=== PATIENT | male | born 1975 | race Caucasian/White ===

== ENCOUNTER 2018-04-15 13:05 | Emergency (ER) | payer OTHER ==
--- OUTSIDE RECORDS SUMMARY | 2018-04-15 13:39 | XMS REPORT | Clinical Summary ---
:1975 Author Organization [facility] Address [address] [place] [address] Care Team Providers Name Role Phone Asked, None Given Primary Care Provider Unavailable Allergies No Known Allergies Medications Medication Sig Dispensed Refills Start Date End Date Status aspirin (ECOTRIN) 81 MG Take 81 mg by 0 Active enteric coated tablet mouth daily. docusate sodium Take 100 mg by 0 Active (COLACE) 100 MG capsule mouth 2 (two) times a day. lisinopril Take 20 mg by 0 Active (PRINIVIL,ZESTRIL) 20 mouth daily. MG tablet Active Problems Not on file Social History Tobacco Use Types Packs/Day Years Used Date Never Smoker Smokeless Tobacco: Never Used Tobacco Cessation: Counseling Given: No Alcohol Use Drinks/Week oz/Week Comments No Sex Assigned at Date Recorded Not on file Job Start Date Occupation Industry Not on file Not on file Not on file Travel History Travel Start Travel End No recent travel history available. Last Filed Vital Signs Not on file Plan of Treatment Not on file Results Not on fileafter 04/14/2017 Insurance Payer Benefit Plan / Group Subscriber ID Type Phone Address MEDICARE MEDICARE PART A AND B xxxxxxxxxx Medicare [place], [place] Advance Directives Patient has advance care planning documents, and code status on file. For more information, please contact:[address] [address] Code Status Date Activated Date Inactivated Comments Full Code 09/05/2015 4:35 PM 09/05/2015 7:28 PM Code Status decision reached by: Patient
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
[2018-04-15 16:26] VITALS: TEMP 98.4
[2018-04-15 16:30] VITALS: BP 159/94; O2SAT 99
== END 2018-04-15 16:09 | disposition home or self-care (01) ==
LOC: ER 13:05
DX: I83.893 Varicose veins of bilateral lower extremities with other complications (principal)
CPT/HCPCS: 99283

== ENCOUNTER 2018-08-25 18:06 | Emergency (ER) | payer OTHER ==
--- OUTSIDE RECORDS SUMMARY | 2018-08-25 18:08 | XMS REPORT | Clinical Summary ---
:1975 Author Organization [facility] Address [address] [place] [address] Care Team Providers Name Role Phone Asked, [...] Not on file Results Not on fileafter 08/24/2017 Insurance Payer Benefit Plan / Group Subscriber ID Type Phone Address MEDICARE MEDICARE PART A AND B xxxxxxxxxx Medicare [place], [place] Advance Directives Patient has advance care planning documents, and code status on file. For more information, please contact:[address] [address] Code Status Date Activated Date Inactivated Comments Full Code 09/05/2015 4:35 PM 09/05/2015 7:28 PM Code Status decision reached by: Patient
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
[2018-08-25 19:48] VITALS: BP 148/84; TEMP 97.5; O2SAT 98
== END 2018-08-25 19:42 | disposition home or self-care (01) ==
LOC: ER 18:06
DX: I83.891 Varicose veins of right lower extremity with other complications (principal)
CPT/HCPCS: 99283

== ENCOUNTER 2018-09-02 21:59 | Emergency (ER) | payer OTHER ==
--- OUTSIDE RECORDS SUMMARY | 2018-09-02 22:02 | XMS REPORT | Clinical Summary ---
:1975 Author Organization [facility] Address [address] [place] [address] Care Team Providers Name Role Phone Asked, [...] Not on file Results Not on fileafter 2017 Insurance Payer Benefit Plan / Subscriber ID Effective Dates Phone Address Type Group MEDICARE MEDICARE PART A xxxxxxxxxx 2012-Present [place], [place] Medicare AND B Advance Directives Patient has advance care planning documents, and code status on file. For more information, please contact:[address] [address] Code Status Date Activated Date Inactivated Comments Full Code 09/05/2015 4:35 PM 09/05/2015 7:28 PM Code Status decision reached by: Patient
[2018-09-02] MEDS ORDERED: DERMABOND SKIN ADHESIVE TOP ONE ×2 (23:14→23:20)
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
[2018-09-02] MEDS ORDERED: CEPHALEXIN 250 MG CAP ONE (23:48)
[2018-09-03 01:13] VITALS: BP 120/73; TEMP 98.5; O2SAT 98
== END 2018-09-03 00:03 | disposition home or self-care (01) ==
LOC: ER 21:59
DX: I83.893 Varicose veins of bilateral lower extremities with other complications (principal)
CPT/HCPCS: 99284

== ENCOUNTER 2018-09-10 03:35 | Inpatient (IN) | payer OTHER ==
--- OUTSIDE RECORDS SUMMARY | 2018-09-10 03:37 | XMS REPORT | Clinical Summary ---
:1975 Author Organization [facility] Address [address] [place] [address] Care Team Providers Name Role Phone Asked, [...] Not on file Results Not on fileafter 09/09/2017 Insurance Payer Benefit Plan / Subscriber ID Effective Dates Phone Address Type Group MEDICARE MEDICARE PART A xxxxxxxxxx 2012-Present [place], [place] Medicare AND B Advance Directives Patient has advance care planning documents, and code status on file. For more information, please contact:[address] [address] Code Status Date Activated Date Inactivated Comments Full Code 09/05/2015 4:35 PM 09/05/2015 7:28 PM Code Status decision reached by: Patient
[2018-09-10] MEDS ORDERED: VANCOMYCIN 1 GM/VIAL ONE (04:44)
[2018-09-10] MEDS ORDERED: PIPERACIL/TAZO 4.5 GM VIAL IV ONE (04:45)
[2018-09-10] MEDS ORDERED: NA CHLORIDE 0.9% 100 ML IV ONE (04:45)
[2018-09-10] MEDS ORDERED: NA CHLORIDE 0.9% 1,000 ML ONE (04:45)
[2018-09-10] MEDS ORDERED: NA CHLORIDE 0.9% 250 ML ONE ×2 (04:45→15:38)
[2018-09-10 05:11] LABS: Urine Blood TRACE (NEG); Urine Glucose NEGATIVE (NEG); Urine Protein 1+ (NEG); Urine Specific Gravity 1.015 (1.005-1.030)
[2018-09-10 05:20] LABS: Urine Bacteria <20 /HPF (NONE SEEN); Urine Culture Reflex Order NOT NEEDED; Urine RBC <5 /HPF (NONE SEEN)
[2018-09-10 05:43] LABS: Absolute Lymphocytes (CBC) 0.5 K/uL (0.7-4.9); Absolute Monocytes 0.6 K/uL (0.1-1.3); Absolute Neutrophil 4.6 K/uL (1.8-8.0); Basophils % 0.5 % (0-1.3); Eosinophils % 0.3 % (0-4.4); Lymphocytes % 7.9 % (15.3-44.8); MPV 7.9 fL (7.6-11.3); Monocytes % 11.1 % (3.3-12.3); Protime INR 1.27; RBC Red Blood Cell Count 2.66 M/uL (4.33-5.43)
[2018-09-10 05:57] LABS: ALT/SGPT 19 U/L (12-78); AST/SGOT 19 U/L (15-37); Albumin 2.4 g/dL (3.4-5.0); Alkaline Phosphatase 73 U/L (45-117); BUN Blood Urea Nitrogen 12 mg/dL (7-18); Bicarbonate 22 mmol/L (21-32); Bilirubin Direct 0.2 mg/dL (0-0.2); Bilirubin Total 0.6 mg/dL (0.2-1.0); Creatine Phosphokinase 56 U/L (39-308); Glucose Level 110 mg/dL (74-106); Lipase 97 U/L (73-393); Potassium 3.7 mmol/L (3.5-5.1); Protein, Total 6.4 g/dL (6.4-8.2); Sodium Level 135 mmol/L (136-145); Troponin I < 0.02 ng/mL (0.0-0.045)
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
--- NOTE | 2018-09-10 07:25 | RAD REPORT ---
EXAM DESCRIPTION: US - Extremity Venous Uni Ltd - 09/10/2018 7:00 am CLINICAL HISTORY: Right leg pain and swelling COMPARISON: None. TECHNIQUE: Real-time sonographic evaluation of the right lower extremity deep venous systems was per formed. FINDINGS: Normal compressibility, flow augmentation, phasic flow and spontaneous flow are identified in the right lower extremity common femoral, superficial femoral, popliteal and posterior tibial vei ns. No intraluminal filling defects seen. IMPRESSION: No DVT in the right lower extremity.
[2018-09-10] MEDS: HYDROCODONE/APAP 7.5/325 MG TAB PO PRN ×2 (07:55→16:16)
--- NOTE | 2018-09-10 07:57 | EKG ---
Test Date: 2018-09-10 Test Time: 04:45:29 [employer] Operator Helper: JEWELL MEASUREMENT RESULTS: Intervals: Rate: 110 MT: 120 QRSD: 100 QT: 312 QTc: 422 [place]: P: 31 MT: 120 QRS: 83 T: 59 INTERPRETIVE STATEMENTS: Sinus tachycardia Otherwise normal ECG Compared to ECG 12/29/2016 04:49:42 Sinus rhythm no longer present Right-axis deviation no longer present Electronically Signed On 09-10-18 07:56:47 CDT by Thom Andrade
[2018-09-10] MEDS ORDERED: HYDROCODONE/APAP 7.5/325 MG TAB ONE (08:00)
--- NOTE | 2018-09-10 08:16 | RAD REPORT ---
EXAM DESCRIPTION: US - Aorta Ivc Iliacs Complete - 09/10/2018 7:51 am CLINICAL HISTORY: Leg pain and swelling, possible DVT COMPARISON: CT lower extremity examination same date TECHNIQUE: Sonographic evaluation of the right upper leg and groin performed. FINDINGS: Exam is limited by large patient body habitus. The intraabdominal portion of the iliac crystal ous system from IVC to right groin could not be assessed. Within the right groin the right external iliac vein and common femoral vein junction shows no eviden ce for thrombus. IMPRESSION: Technically limited examination showing no DVT within the distal most aspect of the righ t external iliac vein and right common femoral vein. The intraabdominal portion of the right common iliac vein and proximal right external iliac vein are obscured due to large body habitus.
[2018-09-10] MEDS ORDERED: ALBUTEROL 2.5 MG/3 ML NEB SOL NEB PRN (08:32)
[2018-09-10] MEDS ORDERED: ONDANSETRON 4 MG/2 ML VIAL IV PRN (08:32)
[2018-09-10] MEDS ORDERED: IPRATROPIUM BROM 0.5MG/2.5ML NEB PRN (08:32)
[2018-09-10 08:38] LABS: Anisocytosis 1+; Basophilic Stippling 1+; Blood Morphology Comment NOTED (NOT SEEN); Platelet Estimate ADEQ; Polychromasia 1+; Urine White Blood Cell Casts OK
[2018-09-10 08:43] VITALS: BMI 48.1
[2018-09-10] MEDS ORDERED: CEFEPIME 1 GM/VIAL IV SCH (09:00)
--- NOTE | 2018-09-10 09:07 | RAD REPORT ---
EXAM DESCRIPTION: RAD - Chest Single View - 09/10/2018 4:37 am CLINICAL HISTORY: Fever, shortness of breath COMPARISON: February 2017 TECHNIQUE: AP portable chest image was obtained 0435 hours . FINDINGS: No focal lung parenchymal process. No failure or volume overload seen. Lung markings are s imilar to comparison. Heart and vasculature are normal. No measurable pleural effusion and no pneumot horax. No acute bony abnormality seen. No acute aortic findings suspected. IMPRESSION: No acute cardiopulmonary process. No significant change from comparison.
--- NOTE | 2018-09-10 09:21 | P.HP ---
Certification for Inpatient Patient admitted to: Inpatient With expected LOS: >2 Midnights Patient will require the following post-hospital care: Home Health Services Practitioner: I am a practitioner with admitting privileges, knowledge of patient current condition, hospital course, and medical plan of care. Services: Services provided to patient in accordance with Admission requirements found in Title 42 Section 412.3 of the Code of Federal Regulations Patient History Date of Service: 09/10/18 Primary Care Provider: Dr. Johns Reason for admission: Right lower extremity pain and swelling History of Present Illness: 43-year-old male presented to the emergency room with right lower extremity pain and swelling. Patient with history of severe chronic venous stasis, lymphedema. Patient was seen by the ER early this past week as per patient. Patient reports that he had noted some bleeding to the right lower extremity due to his varicose veins. Since then he has been taking ibuprofen up to 20 pills per day to help with pain. Increasing swelling, pain to the right lower extremity noted. Mild erythema noted as well. He denies any nausea, vomiting, melena or rectal bleeding. He denies any coughing up blood. He reported some lightheadedness today. Patient came to the ER for further evaluation. In the ER patient evaluated. Blood pressure remained stable. White count 5.7, hemoglobin 6.5. Prior hemoglobin 10. Sodium 135, potassium 3.7, BUN of 12, creatinine 0.97 with a GFR of 85. Glucose 110. Pro calcitonin negative. Lactic acid negative. Venous Doppler of the lower extremity up to the iliac region shows no DVT. Patient was admitted for inpatient treatment of right lower extremity cellulitis and acute on chronic anemia. When I saw the patient in the ER, he appeared stable. Patient still reported some lightheadedness with ambulation. Patient reported pain to the right lower extremity. Patient denies taking any prescription medication at this time. Patient has chronic venous stasis and lymphedema to the lower extremities. Patient with history of GERD, morbid obesity, and likely underlying obstructive sleep apnea. Allergies No Known Drug Allergies Allergy (Verified 02/19/16 09:53) Unknown No Known Allergies Allergy (Uncoded 01/04/17 06:54) Unknown Home medications list reviewed: Yes Home Medications: NK [No Home Meds] 09/10/18 - Past Medical/Surgical History Diabetic: No -: History of testicular cancer -: History of small bowel obstruction -: History of multiple abdominal surgeries -: Large abdominal hernias -: Likely underlying obstructive sleep apnea -: Morbid obesity -: Varicose veins -: GERD -: Venous stasis with insufficiency of the lower extremity -: Lymphedema to the lower extremity -: Appendectomy -: Cholecystectomy -: Bowel repair secondary to bowel perforation -: Hernia mesh repair Psychosocial/ Personal History: The patient is single. He has 2 children. He is currently disabled. - Family History Father -: Heart disease - Social History Smoking Status: Never smoker Alcohol use: No CD- Drugs: No Caffeine use: Yes Place of Residence: Home Review of Systems General: Weakness, As per HPI Eyes: Unremarkable ENT: Unremarkable Respiratory: Unremarkable Cardiovascular: Light Headedness, As per HPI Gastrointestinal: Unremarkable Genitourinary: Unremarkable Musculoskeletal: Leg Pain, Pedal edema, As per HPI Integumentary: As per HPI Neurological: Unremarkable Lymphatics: Unremarkable Physical Examination - Vital Signs Temperature: 98.1 F Blood Pressure: 119/78 Pulse: 102 Respirations: 18 - Physical Exam General: Alert, In no apparent distress, Oriented x3, Cooperative HEENT: Atraumatic, Normocephalic, PERRLA, Mucous membr. moist/pink Neck: Supple, No Thyromegaly Respiratory: Clear to auscultation bilaterally, Normal air movement Cardiovascular: Normal pulses, Regular rate/rhythm Gastrointestinal: Normal bowel sounds, Soft and benign, Non-distended, No tenderness, No masses, No rebound, No guarding Musculoskeletal: Tenderness (Tenderness to the right lower extremity) Integumentary: Other (Significant varicosities to the right lower extremity with venous stasis and lymphedema. Mild erythema. Significant edema noted to the right lower extremity compared to the left. No active bleeding noted at this time.) Neurological: Normal speech, Normal strength at 5/5 x4 extr, Normal tone, Normal affect - Studies Laboratory Data (last 24 hrs) 09/10/18 05:20: Sodium 135 L, Potassium 3.7, BUN 12, Creatinine 0.97, Glucose 110 H, Total Bilirubin 0.6, AST 19, ALT 19, Alkaline Phosphatase 73, Troponin I < 0.02, Lipase 97 09/10/18 05:20: PT 14.9 H, INR 1.27 09/10/18 05:20: WBC 5.7, Hgb 6.5 L*, Hct 20.0 L*, Plt Count 166 09/10/18 04:30: Sodium Cancelled, Potassium Cancelled, BUN Cancelled, Creatinine Cancelled, Glucose Cancelled, Total Bilirubin Cancelled, AST Cancelled, ALT Cancelled, Alkaline Phosphatase Cancelled, Lipase Cancelled Assessment and Plan - Plan Impression: Right lower extremity cellulitis complicated with chronic venous stasis with venous insufficiency and lymphedema Acute on chronic anemia likely underlying iron deficiency related to cellulitis Likely underlying obstructive sleep apnea GERD Morbid obesity, BMI 48.1 Plan: Right lower extremity cellulitis complicated with chronic venous stasis with venous insufficiency and lymphedema: Patient will be admitted for inpatient treatment of cellulitis. Will start IV antibiotic therapy. Surgery has evaluated patient. No surgical intervention required. Surgery recommends lymphedema wrapping and IV antibiotic therapy. Will continue to monitor closely. Provide medication for pain. Will have wound care assess wound and make recommendations/treatment plan. Will try to ambulate patient with physical therapy once anemia improved. Patient to get transfusion of blood due to acute on chronic anemia related to cellulitis. Anticipate discharge likely in the next 2-4 days pending improvement. Will continue to assess. Patient may require assistance with social worker masters for outpatient home health. Acute on chronic anemia likely underlying iron deficiency related to cellulitis : Patient with significant anemia at this time. Will transfuse 2 units at this time. Will provide Lasix after each unit and recheck hemoglobin. No evidence of GI bleed at this time. Anemia likely related to cellulitis as the patient was recently evaluated by the ER and given treatment. Patient had reported bleeding from the varicosities at that time. Will continue to monitor closely. No active bleeding noted at this time. Will check for iron and B12 deficiency. If so patient will require supplement. Patient has been using nonsteroidal anti-inflammatories. Will recommend discontinuation of nonsteroidal anti-inflammatories as this may worsen his anemia and likely underlying GERD. Will provide medication alternative for pain. Likely underlying obstructive sleep apnea: This should be further evaluated as an outpatient. Will recommend pulmonology evaluation and sleep study as an outpatient. GERD: Will start medication. Will recommend GI evaluation as an outpatient. Will recommend to discontinue nonsteroidal anti-inflammatories. Morbid obesity, BMI 48.1: Will address lifestyle modification education. Discharge Plan: Home Plan to discharge in: Greater than 2 days - Advance Directives Does patient have a Living Will: No Does patient have a Durable POA for Healthcare: No - Code Status/Comfort Care Code Status Assessed: Yes (Patient full code.) Time Spent Managing Pts Care (In Minutes): 55
[2018-09-10] MEDS: FAMOTIDINE 20 MG TAB PO SCH ×2 (09:26→21:13)
[2018-09-10] MEDS: CEFEPIME/SWI 1gm 10 ML IV SCH (09:26)
[2018-09-10] MEDS: ENOXAPARIN 40 MG/0.4 ML SQ SCH (09:26)
[2018-09-10 09:48] LABS: Ferritin 52.4 ng/mL (26-388); Thyroid Stimulating Hormone 1.43 uIU/mL (0.360-3.740)
[2018-09-10 09:50] LABS: Urine Appearance CLEAR; Urine Bilirubin NEGATIVE (NEG); Urine Blood NEGATIVE (NEG); Urine Color YELLOW; Urine Glucose NEGATIVE (NEG); Urine Protein NEGATIVE (NEG); Urine Specific Gravity >=1.030 (1.005-1.030)
--- NOTE | 2018-09-10 09:53 | RAD REPORT ---
EXAM DESCRIPTION: CT - Lower Extremity W/ Cont - 09/10/2018 7:19 am CLINICAL HISTORY: 43-year-old male with pain and swelling of right lower extremity TECHNIQUE: Axial CT imaging of the right lower extremity was performed with intravenous contrast. Sagittal and coronal reconstructed images were then performed. The CT study is performed according to ALARA (as low as reasonably achievable) or ALARA/IMAGE GENTLY, with automatic adjustment of mA and/o r kV according to patient size. Performed on: 09/10/2018 at 6:18 AM COMPARISON: No prior studies were available at this time. FINDINGS: Bones: There is no evidence of fracture or dislocation. Bone mineralization is normal. The re are postsurgical changes of the distal fibula and distal tibiofibular joint. A side plate and scre ws were placed along the distal fibula. Two cortical screws traverse the tibiofibular joint. The knee joint and ankle joint are intact. There is no significant arthritis or significant degenerative morales ge. No pathologic lytic or sclerotic bone lesions are identified. Soft tissues: There is diffuse infiltration of the subcutaneous fat extending from the level of the k nee distally to the ankle joint and proximal right foot. There are multiple prominent varicosities pa rticularly along the anteromedial aspect of the right lower extremity. There is no evidence of subcut aneous emphysema. There is diffuse skin thickening. No focal peripherally enhancing fluid collection is identified to suggest a focal abscess. There is no evidence of a joint effusion IMPRESSION: 1. No evidence of acute osseous abnormality involving the right lower extremity. 2. There is diffuse cellulitis throughout the right lower extremity from the level of the knee joint down to the level of the proximal right foot. 3. Multiple prominent varicosities present along the anteromedial aspect of the right lower extremity . 4. No discrete abscess identified. 5. Remote postsurgical changes of the distal fibula and distal tibiofibular joint. There is no eviden ce to suggest hardware failure. Electronically signed by: Nereida Murcia DO 09/10/2018 7:33 AM CDT Due to temporary technical issues with the PACS/Fluency reporting system, reports are being signed by the in house radiologist as a courtesy to ensure prompt reporting. The interpreting radiologist is f ully responsible for the content of the report.
[2018-09-10 09:57] LABS: Urine Microscopic Reflex NO UMIC
[2018-09-10] MEDS ORDERED: VANCOMYCIN/NS 1 gm 1 GM/250 ML BAG IV ONE (10:00)
[2018-09-10] MEDS: ACETAMINOPHEN 500 MG TAB PO PRN (12:39)
[2018-09-10] MEDS ORDERED: POTASSIUM CL SA 10 MEQ TAB PO ONE (13:08)
--- NOTE | 2018-09-10 13:30 | CON ---
Date of Consultation: 09/10/2018 Brief History Of Present Illness: Patient is a 43-year-old male, known to me from previous admissions approximately 2 years ago, he was admitted at those particular occasions with abdominal p ain and complex ventral hernia. He was admitted recently for complaints of bleeding from his right l ower extremity due to significant varicose veins and he has a history of chronic lymphedema to the bi lateral lower extremities. He has been taking up to 20 pills per day of ibuprofen to help with pain. He has had increased swelling, right lower extremity noted and some erythematous changes. He denie s nausea, vomiting, melena, or rectal bleeding. He denies any other blood loss. He does report some lightheadedness prior to the ER admission. He was brought to the ER for the above-stated complaint and bleeding was noted from his varicose veins in the recent past, which was treated with skin glue. He had good hemostasis upon his arrival, however, without any additional hemostatic maneuvers. Past Medical History: Significant for testicular cancer, small bowel obstruction, multiple abdominal surgeries, large abdominal hernia, hypertension, morbid obesity, varicose veins, morbid obesity, CAMERON D, venous stasis with venous stasis ulcers of the bilateral lower extremities. Past Surgical History: Includes appendectomy, cholecystectomy, bowel repair secondary to bowel perfo ration, hernia mesh repair. Social History: He is single, has 2 children. Disabled. Denies smoking, alcohol, or recreational d rug use. Review of Systems: Other than HPI, denies currently. Physical Examination: Vital Signs: At the time of my examination, his vital signs were BMI of 48.1, blood pressure is 119/ 78, pulse of 102, respiratory rate 18, temperature 98.1. General: He is awake, alert, oriented. Psychiatric: Appropriate. Conversive. HEENT: Normocephalic. His sclerae are anicteric. His mucous membranes are moist. His oropharynx c lear. Neck: Supple. No JVD. Chest: Normal expansion and excursion. Cardiovascular: Regular rate and rhythm. Pulmonary: Clear to auscultation bilaterally. Abdomen: Complex ventral abdominal hernias and previous surgery repairs are noted. He is obese. Skin: He has multiple rojas to his abdomen, which look like cigarette rojas, although throughout his abdomen, there is all healed at this point. Extremities: He has significant bilateral lower extremity pitting edema with anasarca. In addition, he has large varicose veins to bilateral lower extremities, worse on the right than the left. There is no active bleeding at this time. He has skin glue over many of his varicose veins on the right l ower extremity at this time. Laboratory Data: Reveals a white blood count of 5.7, hemoglobin 6.5, hematocrit 20, platelet count i s 166. His PT 14.9, INR 1.27. His sodium of 135, potassium 2.7, chloride 106, carbon dioxide 22, BU N 12, creatinine 0.9, glucose of 110, lactic acid 0.8. He had imaging performed which included an ao rtoiliac vascular ultrasound which was officially read as technically limited examination showing no DVT in the distal most aspect of the right external iliac vein and right common femoral veins. He perdue d a chest x-ray performed which was officially read as no acute cardiopulmonary process. He had a lo wer extremity CT which is officially read as no evidence of acute osseous abnormality on the right lo wer extremity. There is diffuse cellulitis throughout the right lower extremity from the level of th e knee joint down to the level of the proximal foot. Multiple prominent varicosities present along t he anterior medial aspect of the right lower extremity. No discrete abscess noted. Remote postsurgi yolande changes of the distal fibula and distal tibiofibular joint. There was no evidence to suggest soy dware failure. He additionally had an extremity venous study as well which is officially read as nor mal compressibility. There is no DVT in the right lower extremity. Assessment And Plan: This is a 43-year-old male who comes in with swelling and acute blood-loss anem ia. 1.Continue blood product resuscitation. 2.Continue medical management. 3.I recommend wrapping and elevation to bilateral lower extremities to decompress tissue oncotic pre ssure and with gentle compression garments and elevation of the lower extremities in addition to seri al exams. I have explained the risks, benefits, and alternatives the above stated plan, the patient agrees to p roceed as indicated. Thank you for this interesting consult. RUBEN/MARTINEZ Voice ID: [id number] Report ID: [id number]
[2018-09-10] MEDS ORDERED: IBUPROFEN 400 MG TAB PO PRN (13:45)
[2018-09-10] MEDS ORDERED: ACETAMINOPHEN 500 MG TAB PO ONE (13:56)
[2018-09-10] MEDS ORDERED: CYANOCOBALAMIN 1000MCG/ML INJ IM ONE ×2 (17:00→19:00)
[2018-09-10] MEDS ORDERED: FUROSEMIDE 20 MG/ 2ML VIAL IV ONE (20:47)
[2018-09-10] MEDS: TRAMADOL HCL 50 MG TAB PO PRN (21:13)
[2018-09-10] MEDS: FERROUS SULFATE 325 MG TAB PO SCH (21:13)
[2018-09-10] MEDS: VANCOMYCIN 2 GM in NA CHLORIDE 0.9% 500 ML IVPB SCH (21:14)
[2018-09-10] MEDS ORDERED: MELATONIN 3 MG TABLET PO PRN (21:42)
[2018-09-11] MEDS ORDERED: NA CHLORIDE 0.9% 500 ML ONE (00:05)
[2018-09-11] MEDS: ACETAMINOPHEN 500 MG TAB PO PRN ×3 (00:10→19:56)
[2018-09-11 06:23] LABS: Absolute Lymphocytes (CBC) 0.9 K/uL (0.7-4.9); Absolute Monocytes 1.2 K/uL (0.1-1.3); Absolute Neutrophil 7.4 K/uL (1.8-8.0); Basophils % 0.5 % (0-1.3); Eosinophils % 0.3 % (0-4.4); Hematocrit 23.1 % (39.6-49.0); Lymphocytes % 9.4 % (15.3-44.8); MPV 8.2 fL (7.6-11.3); Monocytes % 12.9 % (3.3-12.3); RBC Red Blood Cell Count 3.08 M/uL (4.33-5.43)
[2018-09-11 06:41] LABS: Magnesium 1.9 mg/dL (1.8-2.4); Potassium 3.9 mmol/L (3.5-5.1)
[2018-09-11] MEDS: ENOXAPARIN 40 MG/0.4 ML SQ SCH (08:21)
[2018-09-11] MEDS: FAMOTIDINE 20 MG TAB PO SCH ×2 (08:22→19:56)
[2018-09-11] MEDS: FERROUS SULFATE 325 MG TAB PO SCH ×2 (08:22→19:56)
[2018-09-11] MEDS: CYANOCOBALAMIN 1,000 MCG TAB PO SCH (08:22)
[2018-09-11] MEDS ORDERED: POTASSIUM CL SA 10 MEQ TAB PO ONE (09:00)
[2018-09-11] MEDS: CEFEPIME/SWI 1gm 10 ML IV SCH (09:32)
[2018-09-11] MEDS: VANCOMYCIN 2 GM in NA CHLORIDE 0.9% 500 ML IVPB SCH ×2 (09:32→22:50)
--- NOTE | 2018-09-11 09:37 | P.PN ---
Subjective Date of Service: 09/11/18 Primary Care Provider: Dr. Johns Chief Complaint: Right lower extremity pain and swelling Subjective: Improving Physical Examination - Vital Signs Temperature: 100.4 F Blood Pressure: 128/64 Pulse: 96 Respirations: 20 Pulse Ox (%): 97 - Physical Exam General: Alert, In no apparent distress, Oriented x3, Cooperative HEENT: Atraumatic Neck: Supple Respiratory: Clear to auscultation bilaterally, Normal air movement Cardiovascular: Normal pulses, Regular rate/rhythm Gastrointestinal: Normal bowel sounds, Soft and benign, Non-distended, No masses , No rebound, No guarding Neurological: Normal speech, Normal strength at 5/5 x4 extr, Normal tone, Normal affect - Studies Medications List Reviewed: Yes Assessment & Plan Discharge Plan: Home Plan to discharge in: 24 Hours Physician Review Additional Text: Impression: Right lower extremity cellulitis complicated with chronic venous stasis with venous insufficiency and lymphedema Acute on chronic anemia with underlying iron/B12 deficiency related to cellulitis Likely underlying obstructive sleep apnea GERD Morbid obesity, BMI 48.1 Plan: Right lower extremity cellulitis complicated with chronic venous stasis with venous insufficiency and lymphedema: Cellulitis improved. Continue current IV antibiotic therapy. Patient had if fever yesterday. Will continue to provide medication and ice packs. Will have physical therapy ambulate. Patient desires to go home. Blood cultures negative. Likely discharge tomorrow if patient remains afebrile for at least 24 hr. Patient will [facility]. No surgical intervention required at this time. Patient may require home health and physical therapy at discharge. Will see how he does with physical therapy today. Acute on chronic anemia with underlying iron/B12 deficiency related to cellulitis: Hemoglobin improved and stable at this time. Will continue to monitor hemoglobin. Patient received 2 units of blood. Will start iron and B12 supplementation. Anemia likely related to his cellulitis. Will recommend no further use of nonsteroidal anti-inflammatories which he was using extensively. Likely underlying obstructive sleep apnea: This should be further evaluated as an outpatient. Will recommend pulmonology evaluation and sleep study as an outpatient. GERD: Continue with medication. Will recommend GI evaluation as an outpatient. Will recommend to discontinue nonsteroidal anti-inflammatories which patient was using at home extensively. Morbid obesity, BMI 48.1: Will address lifestyle modification education. Time Spent Managing Pts Care (In Minutes): 55
--- NOTE | 2018-09-11 11:00 | P.PN ---
Subjective Date of Service: 09/11/18 Primary Care Provider: Dr. Johns Chief Complaint: Right lower extremity pain and swelling Subjective: Improving (Legs less edematous, patient remains combative, and verbally abusive) Physical Examination - Vital Signs Temperature: 100.4 F Blood Pressure: 128/64 Pulse: 96 Respirations: 20 Pulse Ox (%): 97 - Physical Exam General: Alert, In no apparent distress, Cooperative Integumentary: Skin breakdown, Venous stasis ulcer, Other (edema to bilateral lower extremitis remains present, wounds are slowly improving with wraps and elevation) - Studies Medications List Reviewed: Yes Assessment And Plan - Current Problems (Diagnosis) (1) Varicose veins of both lower extremities Onset Date: 03/15/17 Current Visit: No Status: Chronic Plan: -edema improving in lower extremities - bacitracin to RLE, wraps, elevation Physician Review Additional Text: Impression: Right lower extremity cellulitis complicated with chronic venous stasis with venous insufficiency and lymphedema Acute on chronic anemia with underlying iron/B12 deficiency related to cellulitis Likely underlying obstructive sleep apnea GERD Morbid obesity, BMI 48.1 Plan: Right lower extremity cellulitis complicated with chronic venous stasis with venous insufficiency and lymphedema: Cellulitis improved. Continue current IV antibiotic therapy. Patient had if fever yesterday. Will continue to provide medication and ice packs. Will have physical therapy ambulate. Patient desires to go home. Blood cultures negative. Likely discharge tomorrow if patient remains afebrile for at least 24 hr. Patient will need [facility] with [facility]. No surgical intervention required at this time. Patient may require home health and physical therapy at discharge. Will see how he does with physical therapy today. Acute on chronic anemia with underlying iron/B12 deficiency related to cellulitis: Hemoglobin improved and stable at this time. Will continue to monitor hemoglobin. Patient received 2 units of blood. Will start iron and B12 supplementation. Anemia likely related to his cellulitis. Will recommend no further use of nonsteroidal anti-inflammatories which he was using extensively. Likely underlying obstructive sleep apnea: This should be further evaluated as an outpatient. Will recommend pulmonology evaluation and sleep study as an outpatient. GERD: Continue with medication. Will recommend GI evaluation as an outpatient. Will recommend to discontinue nonsteroidal anti-inflammatories which patient was using at home extensively. Morbid obesity, BMI 48.1: Will address lifestyle modification education.
[2018-09-11 12:09] LABS: Hematocrit 22.7 % (39.6-49.0)
[2018-09-11] MEDS: MUPIROCIN 2% OINT 22GM TUBE TOP SCH (15:42)
[2018-09-11] MEDS: HYDROCODONE/APAP 7.5/325 MG TAB PO PRN ×2 (16:00→22:51)
[2018-09-11] MEDS ORDERED: ALBUTEROL 2.5 MG/3 ML NEB SOL NEB PRN (17:00)
[2018-09-11] MEDS ORDERED: IPRATROPIUM BROM 0.5MG/2.5ML NEB PRN (17:00)
[2018-09-11] MEDS: CEFEPIME/SWI 2gm 2 GM/20 ML SYR IV SCH (17:44)
[2018-09-11 18:02] LABS: Hematocrit 22.9 % (39.6-49.0)
[2018-09-11 20:58] LABS: Hematocrit 23.4 % (39.6-49.0)
[2018-09-11] MEDS: TRAMADOL HCL 50 MG TAB PO PRN (21:26)
[2018-09-12] MEDS: CEFEPIME/SWI 2gm 2 GM/20 ML SYR IV SCH ×3 (02:34→17:12)
[2018-09-12 06:10] LABS: Magnesium 2.1 mg/dL (1.8-2.4); Potassium 4.8 mmol/L (3.5-5.1)
[2018-09-12 06:36] LABS: Absolute Lymphocytes (CBC) 0.7 K/uL (0.7-4.9); Absolute Monocytes 1.1 K/uL (0.1-1.3); Absolute Neutrophil 9.7 K/uL (1.8-8.0); Basophils % 0.4 % (0-1.3); Eosinophils % 0.4 % (0-4.4); Hematocrit 23.7 % (39.6-49.0); Lymphocytes % 6.4 % (15.3-44.8); MPV 8.2 fL (7.6-11.3); Monocytes % 9.7 % (3.3-12.3); RBC Red Blood Cell Count 3.12 M/uL (4.33-5.43)
[2018-09-12] MEDS ORDERED: BACITRACIN OINTMENT 15 GM TUBE TOP SCH (09:00)
--- NOTE | 2018-09-12 09:26 | P.PN ---
Subjective Date of Service: 09/12/18 Primary Care Provider: Dr. Johns Chief Complaint: Right lower extremity pain and swelling Subjective: Other (Patient had fever last night. Pain improved.) Physical Examination - Vital Signs Temperature: 99.7 F Blood Pressure: 138/63 Pulse: 98 Respirations: 20 Pulse Ox (%): 99 - Physical Exam General: Alert, In no apparent distress, Oriented x3, Cooperative HEENT: Atraumatic Neck: Supple Respiratory: Clear to auscultation bilaterally, Normal air movement Cardiovascular: Normal pulses, Regular rate/rhythm Gastrointestinal: Normal bowel sounds, Soft and benign, Non-distended, No masses , No rebound, No guarding Integumentary: Other (Erythema to the right lower extremity improved. Slight warmth noted but overall improved. Still with pain but that also has improved) Neurological: Normal speech, Normal strength at 5/5 x4 extr, Normal tone, Normal affect - Studies Medications List Reviewed: Yes Assessment & Plan Discharge Plan: Home Plan to discharge in: 24 Hours Physician Review Additional Text: Impression: Right lower extremity cellulitis complicated with chronic venous stasis with venous insufficiency and lymphedema Acute on chronic anemia with underlying iron/B12 deficiency related to cellulitis Likely underlying obstructive sleep apnea GERD Morbid obesity, BMI 48.1 Plan: Right lower extremity cellulitis complicated with chronic venous stasis with venous insufficiency and lymphedema: Cellulitis has improved. Patient had fever last night. Continue IV antibiotic therapy. Blood cultures so far negative. Will have patient work with physical therapy. Will consult infectious disease for recommendation. Will reassess this afternoon. Possibly discharge later today after infectious disease evaluation. Will discuss with surgery. Patient will need [facility]. Would like to see patient without fever for at least 24 hr. This will likely mean discharge tomorrow. Acute on chronic anemia with underlying iron/B12 deficiency related to cellulitis: Continue with iron and B12 supplementation. Hemoglobin has improved. Will provide 1 more unit of packed red blood cells to maintain hemoglobin above 8.0. Continue to educate patient on no further use of nonsteroidal anti-inflammatories. Will need to continue with supplementation at discharge. Likely underlying obstructive sleep apnea: This should be further evaluated as an outpatient. Will recommend pulmonology evaluation and sleep study as an outpatient. GERD: Continue with medication. Will recommend GI evaluation as an outpatient. Will recommend to discontinue nonsteroidal anti-inflammatories which patient was using at home extensively. Morbid obesity, BMI 48.1: Will address lifestyle modification education. Time Spent Managing Pts Care (In Minutes): 55
[2018-09-12] MEDS: CYANOCOBALAMIN 1,000 MCG TAB PO SCH (10:00)
[2018-09-12] MEDS: FAMOTIDINE 20 MG TAB PO SCH ×2 (10:00→20:40)
[2018-09-12] MEDS: FERROUS SULFATE 325 MG TAB PO SCH ×2 (10:00→20:40)
[2018-09-12] MEDS: ENOXAPARIN 40 MG/0.4 ML SQ SCH (10:01)
[2018-09-12] MEDS: MUPIROCIN 2% OINT 22GM TUBE TOP SCH (10:09)
[2018-09-12] MEDS: VANCOMYCIN 2.25 GM in NA CHLORIDE 0.9% 500 ML IVPB SCH (10:55)
[2018-09-12] MEDS ORDERED: FUROSEMIDE 20 MG/ 2ML VIAL IV SCH (11:00)
[2018-09-12] MEDS ORDERED: NA CHLORIDE 0.9% 250 ML ONE (12:07)
--- NOTE | 2018-09-12 15:18 | RAD REPORT ---
EXAM DESCRIPTION: RAD - Chest Single View - 09/12/2018 3:11 pm CLINICAL HISTORY: Fever Chest pain. COMPARISON: Chest Single View dated 09/10/2018; Abdomen Acute Series dated 03/14/2017; Chest Single V iew dated 01/03/2017; Chest Single View dated 12/29/2016 FINDINGS: Portable technique limits examination quality. The lungs are grossly clear. The heart is normal in size. No displaced fractures. IMPRESSION: No acute intrathoracic process suspected.
[2018-09-12] MEDS: HYDROCODONE/APAP 7.5/325 MG TAB PO PRN (20:41)
[2018-09-12 22:00] LABS: Hematocrit 26.8 % (39.6-49.0)
[2018-09-13] MEDS: HYDROCODONE/APAP 7.5/325 MG TAB PO PRN ×3 (04:42→21:55)
[2018-09-13] MEDS: VANCOMYCIN 2.25 GM in NA CHLORIDE 0.9% 500 ML IVPB SCH ×2 (04:43→15:32)
[2018-09-13] MEDS: MUPIROCIN 2% OINT 22GM TUBE TOP SCH ×2 (04:43→08:36)
[2018-09-13] MEDS: CEFEPIME/SWI 2gm 2 GM/20 ML SYR IV SCH ×3 (04:43→18:03)
[2018-09-13] MEDS: FERROUS SULFATE 325 MG TAB PO SCH ×2 (08:41→20:36)
[2018-09-13] MEDS: FAMOTIDINE 20 MG TAB PO SCH ×2 (08:41→20:37)
[2018-09-13] MEDS: TRAMADOL HCL 50 MG TAB PO PRN ×2 (08:41→20:36)
[2018-09-13] MEDS: ENOXAPARIN 40 MG/0.4 ML SQ SCH (08:42)
[2018-09-13] MEDS: CYANOCOBALAMIN 1,000 MCG TAB PO SCH (08:42)
--- NOTE | 2018-09-13 09:06 | ECHO ---
HEIGHT: 5 ft 11 in WEIGHT: 345 lb 0 oz DATE OF STUDY: 09/12/[address]: Nura Greer DO 2-DIMENSIONAL: YES M.MODE: YES DOPPLER: YES COLOR FLOW: YES TDS: YES PORTABLE: DEFINITY: BUBBLE STUDY: DIAGNOSIS: FEVER WITH RLE CELLULITIS CARDIAC HISTORY: CATHERIZATION: NO SURGERY: NO PROSTHETIC VALVE: NO PACEMAKER: NO MEASUREMENTS (cm) DIASTOLIC (NORMALS) SYSTOLIC (NORMALS) IVSd 1.1 (0.6-1.2) LA Diam 4.0 (1.9-4.0) LVEF 62% LVIDd 4.5 (3.5-5.7) LVIDs 3.0 (2.0-3.5) %FS 33% LVPWd 1.1 (0.6-1.2) Ao Diam 3.2 (2.0-3.7) 2 DIMENSIONAL ASSESSMENT: RIGHT ATRIUM: NORMAL LEFT ATRIUM: NORMAL RIGHT VENTRICLE: NORMAL LEFT VENTRICLE: NORMAL TRICUSPID VALVE: NORMAL MITRAL VALVE: NORMAL PULMONIC VALVE: NORMAL AORTIC VALVE: NORMAL PERICARDIAL EFFUSION: NONE AORTIC ROOT: NORMAL LEFT VENTRICULAR WALL MOTION: NORMAL DOPPLER/COLOR FLOW: PHYSIOLOGIC TRICUSPID REGURGITATION. NORMAL RIGHT VENTRICULAR SYSTOLIC PRESSURE. COMMENTS: NORMAL TWO DIMENSIONAL ECHOCARDIOGRAM WITH DOPPLER. TECHNOLOGIST: MARY SUTHERLAND
--- NOTE | 2018-09-13 13:50 | P.PN ---
Subjective Date of Service: 09/13/18 Primary Care Provider: Dr. Johns Chief Complaint: Right lower extremity pain and swelling Subjective: Improving Physical Examination - Vital Signs Temperature: 99.1 F Blood Pressure: 138/77 Pulse: 93 Respirations: 18 Pulse Ox (%): 96 - Physical Exam General: Alert, In no apparent distress, Oriented x3, Cooperative HEENT: Atraumatic Neck: Supple Respiratory: Clear to auscultation bilaterally, Normal air movement Cardiovascular: Normal pulses, Regular rate/rhythm Gastrointestinal: Normal bowel sounds, Soft and benign Integumentary: Other (Erythema and warmth to the right lower extremity improved. ) Neurological: Normal speech, Normal strength at 5/5 x4 extr, Normal tone, Normal affect - Studies Medications List Reviewed: Yes Assessment & Plan Discharge Plan: Other (Home versus skilled placement) Plan to discharge in: 48 Hours Physician Review Additional Text: Impression: Right lower extremity cellulitis complicated with chronic venous stasis with venous insufficiency and lymphedema Acute on chronic anemia with underlying iron/B12 deficiency related to cellulitis Likely underlying obstructive sleep apnea GERD Morbid obesity, BMI 48.1 Plan: Right lower extremity cellulitis complicated with chronic venous stasis with venous insufficiency and lymphedema: Cellulitis has improved. Patient still with fever but this has improved slowly. Continue IV antibiotic therapy. Blood cultures negative so far. Echocardiogram unremarkable. Infectious disease consulted for recommendation on whether to continue with IV antibiotic therapy long-term or transition to oral medication at discharge. Possible placement to skilled if patient requires IV antibiotic therapy. Otherwise will continue to monitor closely. Continue to anticipate improvement. Likely discharge once patient without significant fever in over 24 hr. Acute on chronic anemia with underlying iron/B12 deficiency related to cellulitis: Continue with iron and B12 supplementation. Hemoglobin has improved with transfusions. Patient has received a total of 3 units. Maintain hemoglobin above 8.0.Continue to educate patient on no further use of nonsteroidal anti-inflammatories. Will need to continue with supplementation at discharge. Likely underlying obstructive sleep apnea: This should be further evaluated as an outpatient. Will recommend pulmonology evaluation and sleep study as an outpatient. GERD: Continue with medication. Will recommend GI evaluation as an outpatient. Will recommend to discontinue nonsteroidal anti-inflammatories which patient was using at home extensively. Morbid obesity, BMI 48.1: Will address lifestyle modification education. Time Spent Managing Pts Care (In Minutes): 55
--- NOTE | 2018-09-13 17:18 | CON ---
History Of Present Illness: This is a 43-year-old male I was consulted for right lower extremity ang n and cellulitis. The patient has significant history of venous stasis dermatitis and lymphedema for several years. The patient denies any headache, nausea, vomiting, chest pain, abdominal pain, const ipation, or diarrhea. The patient also has history of varicose veins. Past Medical History: Testicular cancer, small bowel obstruction, multiple abdominal surgeries, larg e abdominal hernia, underlying obstructive sleep apnea, morbid obesity, varicose veins, GERD, venous stasis with insufficiency of lower extremity, lymphedema, appendectomy, cholecystectomy, bowel repair secondary to bowel perforation, hernia mesh repair. Social History: Nonsmoker, nondrinker. Family History: Noncontributory. Medications: Cefepime and vancomycin. See MARs for other medication. Allergies: NO KNOWN DRUG ALLERGIES. Review of Systems: A 10-point review was performed. Physical Examination: General: This is a 43-year-old male, lying in bed, not in any acute cardiopulmonary distress. Vital Signs: Temperature 99.3, pulse 90, respiration 20, blood pressure 138/71. HEENT: Unremarkable. Neck: Supple. Lungs: Basal crackles. Heart: S1, S2. Regular. Abdomen: Soft, nontender. Bowel sounds present. Extremities: Right leg with blistering lesions and erythematous changes noted up to the level of the knee. Chronic stasis dermatitis changes also noted with thickening of skin and hyperpigmentation. Laboratory Data: Shows WBC 11.7, hemoglobin 7.8, platelets are 210. Chemistry show sodium 134, pota ssium 4.8, chloride 102, bicarb 27, BUN 10, creatinine 1, glucose 131. Micro data shows blood cultur es, no growth for 24 hours. Chest x-ray done yesterday shows no acute process. Lower extremity CAT scan shows no evidence of acute osseous abnormalities, diffuse cellulitis, multiple prominent varicos e veins. No abscess identified. Assessment And Plan: A 43-year-old male with right lower extremity cellulitis with chronic lymphedem a and varicose vein, stasis dermatitis. We will recommend to continue antibiotic for total of 2 week s. Keep leg elevated as much as possible. Consider Coban wraps. Apply Xeroform gauze to the open w ounds before doing the Coban wrap and if no contraindication, we will follow the patient closely. Thank you Dr. Greer for consult. MARCIA/MARTINEZ Voice ID: [id number] Report ID: [id number]
[2018-09-13 18:33] LABS: Absolute Lymphocytes (CBC) 0.7 K/uL (0.7-4.9); Absolute Monocytes 0.8 K/uL (0.1-1.3); Basophils % 0.4 % (0-1.3); Eosinophils % 2.2 % (0-4.4); Hematocrit 25.6 % (39.6-49.0); Lymphocytes % 8.2 % (15.3-44.8); MPV 7.9 fL (7.6-11.3); Monocytes % 9.6 % (3.3-12.3); RBC Red Blood Cell Count 3.32 M/uL (4.33-5.43)
[2018-09-13 18:43] LABS: BUN Blood Urea Nitrogen 13 mg/dL (7-18); Bicarbonate 27 mmol/L (21-32); Glucose Level 126 mg/dL (74-106); Magnesium 2.2 mg/dL (1.8-2.4); Potassium 4.7 mmol/L (3.5-5.1); Sodium Level 134 mmol/L (136-145)
[2018-09-14] MEDS: CEFEPIME/SWI 2gm 2 GM/20 ML SYR IV SCH ×3 (01:40→17:54)
[2018-09-14] MEDS: HYDROCODONE/APAP 7.5/325 MG TAB PO PRN ×3 (04:47→17:54)
[2018-09-14] MEDS: VANCOMYCIN 2.25 GM in NA CHLORIDE 0.9% 500 ML IVPB SCH ×2 (04:50→16:28)
[2018-09-14 06:03] LABS: Absolute Lymphocytes (CBC) 0.7 K/uL (0.7-4.9); Absolute Monocytes 0.8 K/uL (0.1-1.3); Basophils % 0.8 % (0-1.3); Eosinophils % 3.1 % (0-4.4); Hematocrit 25.7 % (39.6-49.0); Lymphocytes % 8.2 % (15.3-44.8); MPV 7.9 fL (7.6-11.3); Monocytes % 8.5 % (3.3-12.3)
[2018-09-14 06:14] LABS: BUN Blood Urea Nitrogen 12 mg/dL (7-18); Bicarbonate 26 mmol/L (21-32); Glucose Level 133 mg/dL (74-106); Magnesium 2.1 mg/dL (1.8-2.4); Potassium 4.2 mmol/L (3.5-5.1); Sodium Level 135 mmol/L (136-145)
[2018-09-14] MEDS: FAMOTIDINE 20 MG TAB PO SCH (09:27)
[2018-09-14] MEDS: FERROUS SULFATE 325 MG TAB PO SCH (09:27)
[2018-09-14] MEDS: ENOXAPARIN 40 MG/0.4 ML SQ SCH (09:27)
[2018-09-14] MEDS: CYANOCOBALAMIN 1,000 MCG TAB PO SCH (09:27)
[2018-09-14] MEDS: MUPIROCIN 2% OINT 22GM TUBE TOP SCH (09:33)
--- NOTE | 2018-09-14 12:42 | P.PN ---
Subjective Date of Service: 09/14/18 Primary Care Provider: Dr. Johns Chief Complaint: Right lower extremity pain and swelling Subjective: Improving Physical Examination - Vital Signs Temperature: 98.2 F Blood Pressure: 140/71 Pulse: 87 Respirations: 18 Pulse Ox (%): 98 - Physical Exam General: Alert, In no apparent distress, Oriented x3, Cooperative HEENT: Atraumatic Neck: Supple Respiratory: Clear to auscultation bilaterally, Normal air movement Cardiovascular: Normal pulses, Regular rate/rhythm Gastrointestinal: Normal bowel sounds, Soft and benign, Non-distended, No masses , No rebound, No guarding Integumentary: Other (Erythema, swelling, warmth to the right lower extremity improved) Neurological: Normal speech, Normal strength at 5/5 x4 extr, Normal tone - Studies Medications List Reviewed: Yes Assessment & Plan Discharge Plan: Other (Home versus skilled placement) Plan to discharge in: 48 Hours Physician Review Additional Text: Impression: Right lower extremity cellulitis complicated with chronic venous stasis with venous insufficiency and lymphedema Acute on chronic anemia with underlying iron/B12 deficiency related to cellulitis Likely underlying obstructive sleep apnea GERD Morbid obesity, BMI 48.1 Plan: Right lower extremity cellulitis complicated with chronic venous stasis with venous insufficiency and lymphedema: Overall cellulitis has improved. Continue monitor fever. White count within normal range. Will discuss with infectious disease about recommendation. Will need to consider home with home health at discharge verses skilled placement. Likely decision within the next 24 hr. If patient without fever during that time. Will continue to reassess. Acute on chronic anemia with underlying iron/B12 deficiency related to cellulitis: Overall stable Continue with iron and B12 supplementation. Hemoglobin has improved with transfusions. Patient has received a total of 3 units. Maintain hemoglobin above 8.0.Continue to educate patient on no further use of nonsteroidal anti-inflammatories. Will need to continue with supplementation at discharge. Likely underlying obstructive sleep apnea: This should be further evaluated as an outpatient. Will recommend pulmonology evaluation and sleep study as an outpatient. GERD: Continue with medication. Will recommend GI evaluation as an outpatient. Will recommend to discontinue nonsteroidal anti-inflammatories which patient was using at home extensively. Morbid obesity, BMI 48.1: Will address lifestyle modification education. Time Spent Managing Pts Care (In Minutes): 55
[2018-09-15] MEDS: FAMOTIDINE 20 MG TAB PO SCH ×3 (00:01→21:14)
[2018-09-15] MEDS: FERROUS SULFATE 325 MG TAB PO SCH ×3 (00:01→21:14)
[2018-09-15] MEDS: HYDROCODONE/APAP 7.5/325 MG TAB PO PRN ×2 (00:01→19:05)
[2018-09-15] MEDS: CEFEPIME/SWI 2gm 2 GM/20 ML SYR IV SCH ×3 (01:00→17:16)
[2018-09-15] MEDS: TRAMADOL HCL 50 MG TAB PO PRN (03:10)
[2018-09-15] MEDS: ACETAMINOPHEN 500 MG TAB PO PRN (03:11)
[2018-09-15] MEDS: VANCOMYCIN 2.25 GM in NA CHLORIDE 0.9% 500 ML IVPB SCH ×2 (03:12→17:16)
[2018-09-15 05:39] LABS: BUN Blood Urea Nitrogen 14 mg/dL (7-18); Bicarbonate 30 mmol/L (21-32); Glucose Level 104 mg/dL (74-106); Potassium 4.7 mmol/L (3.5-5.1); Sodium Level 135 mmol/L (136-145)
[2018-09-15 05:40] LABS: Absolute Lymphocytes (CBC) 0.7 K/uL (0.7-4.9); Absolute Monocytes 0.8 K/uL (0.1-1.3); Absolute Neutrophil 8.6 K/uL (1.8-8.0); Basophils % 0.6 % (0-1.3); Eosinophils % 2.2 % (0-4.4); Hematocrit 25.4 % (39.6-49.0); Monocytes % 7.8 % (3.3-12.3); RBC Red Blood Cell Count 3.33 M/uL (4.33-5.43)
[2018-09-15] MEDS: ENOXAPARIN 40 MG/0.4 ML SQ SCH (09:27)
[2018-09-15] MEDS: CYANOCOBALAMIN 1,000 MCG TAB PO SCH (09:27)
[2018-09-15] MEDS: MUPIROCIN 2% OINT 22GM TUBE TOP SCH (09:30)
--- NOTE | 2018-09-15 09:44 | P.PN ---
Subjective Date of Service: 09/15/18 Primary Care Provider: Dr. Johns Chief Complaint: Right lower extremity pain and swelling Subjective: Doing well Physical Examination - Vital Signs Temperature: 97.9 F Blood Pressure: 138/81 Pulse: 87 Respirations: 18 Pulse Ox (%): 99 - Physical Exam General: Alert, In no apparent distress, Oriented x3, Cooperative HEENT: Atraumatic Neck: Supple Respiratory: Clear to auscultation bilaterally, Normal air movement Cardiovascular: Normal pulses, Regular rate/rhythm Gastrointestinal: Normal bowel sounds, Soft and benign, Non-distended Integumentary: Other (Right lower extremity shows improvement in erythema, swelling and warmth.) Neurological: Normal speech, Normal strength at 5/5 x4 extr, Normal tone, Normal affect - Studies Microbiology Data (last 24 hrs): 09/10/18 04:45 Blood - Blood Aerobic Blood Culture - Final No growth in 5 days. 09/10/18 04:45 Blood - Blood Anaerobic Blood Culture - Final No growth in 5 days. 09/10/18 04:30 Blood - Blood Aerobic Blood Culture - Final No growth in 5 days. 09/10/18 04:30 Blood - Blood Anaerobic Blood Culture - Final No growth in 5 days. Medications List Reviewed: Yes Assessment & Plan Discharge Plan: Other ([facility] facility) Plan to discharge in: 24 Hours Physician Review Additional Text: Impression: Right lower extremity cellulitis complicated with chronic venous stasis with venous insufficiency and lymphedema Acute on chronic anemia with underlying iron/B12 deficiency related to cellulitis Likely underlying obstructive sleep apnea GERD Morbid obesity, BMI 48.1 Plan: Right lower extremity cellulitis complicated with chronic venous stasis with venous insufficiency and lymphedema: Overall cellulitis has improved. Patient is ambulating. Patient still with fever. White count within normal range. Case discussed with infectious disease. Continue with wound care. Patient will require IV antibiotic therapy for 2 weeks. Will order PICC line. Patient currently on IV cefepime and vancomycin. Pharmacy to continue to monitor and adjust. Will make arrangements for skilled placement. Social work consulted to help in this process. Once skilled placement approved in the next 24-48 hr, patient can be discharged. I will turn the service over to Dr. Cardenas tomorrow. I will go over the plan of care with her. Acute on chronic anemia with underlying iron/B12 deficiency related to cellulitis: Overall stable. Continue with iron and B12 supplementation. Hemoglobin has improved with transfusions. Patient has received a total of 3 units. Maintain hemoglobin above 8.0. Continue to educate patient on no further use of nonsteroidal anti-inflammatories. Will need to continue with supplementation at discharge. Likely underlying obstructive sleep apnea: This should be further evaluated as an outpatient. Will recommend pulmonology evaluation and sleep study as an outpatient. GERD: Continue with medication. Will recommend GI evaluation as an outpatient. Will recommend to discontinue nonsteroidal anti-inflammatories which patient was using at home extensively. Morbid obesity, BMI 48.1: Will address lifestyle modification education. Time Spent Managing Pts Care (In Minutes): 55
[2018-09-16] MEDS: CEFEPIME/SWI 2gm 2 GM/20 ML SYR IV SCH ×3 (00:51→17:07)
[2018-09-16 03:58] LABS: Absolute Lymphocytes (CBC) 0.6 K/uL (0.7-4.9); Absolute Monocytes 0.6 K/uL (0.1-1.3); Absolute Neutrophil 6.2 K/uL (1.8-8.0); Basophils % 0.9 % (0-1.3); Eosinophils % 2.9 % (0-4.4); Hematocrit 25.3 % (39.6-49.0); Lymphocytes % 7.8 % (15.3-44.8); MPV 7.6 fL (7.6-11.3); Monocytes % 8.1 % (3.3-12.3); RBC Red Blood Cell Count 3.33 M/uL (4.33-5.43)
[2018-09-16] MEDS: VANCOMYCIN 2.25 GM in NA CHLORIDE 0.9% 500 ML IVPB SCH ×2 (05:37→15:38)
[2018-09-16] MEDS: HYDROCODONE/APAP 7.5/325 MG TAB PO PRN ×2 (05:54→22:45)
[2018-09-16] MEDS: MUPIROCIN 2% OINT 22GM TUBE TOP SCH (09:00)
[2018-09-16] MEDS: ENOXAPARIN 40 MG/0.4 ML SQ SCH (09:51)
[2018-09-16] MEDS: FERROUS SULFATE 325 MG TAB PO SCH ×2 (09:51→20:32)
[2018-09-16] MEDS: FAMOTIDINE 20 MG TAB PO SCH ×2 (09:51→20:32)
[2018-09-16] MEDS: CYANOCOBALAMIN 1,000 MCG TAB PO SCH (09:51)
[2018-09-16] MEDS: ACETAMINOPHEN 500 MG TAB PO PRN (09:56)
--- NOTE | 2018-09-16 10:21 | RAD REPORT ---
EXAM DESCRIPTION: RAD - Chest Single View - 09/16/2018 10:02 am CLINICAL HISTORY: Device placement PICC line placement COMPARISON: September 12, 2018 FINDINGS: A PICC line has been inserted. The tip is not clearly seen but lies near the junction of brachiocephalic vein and superior vena cava The lungs appear clear of acute infiltrate. The heart is normal size.
[2018-09-16] MEDS ORDERED: LIDOCAINE 1% MPF 5 ML VIAL ONE (10:53)
--- NOTE | 2018-09-16 17:05 | P.PN ---
Subjective Date of Service: 09/16/18 Primary Care Provider: Dr. Johns Chief Complaint: Right lower extremity pain and swelling Patient seen and examined at bedside with RN. Chart reviewed. Patient currently has no complaints to offer overnight. Getting his PICC line placed this morning. States that his cellulitis is improving markedly since his admission. Review of Systems 10-point ROS is otherwise unremarkable Physical Examination - Vital Signs Temperature: 99.1 F Blood Pressure: 153/69 Pulse: 95 Respirations: 18 Pulse Ox (%): 100 - Physical Exam General: Alert, In no apparent distress, Obese Neck: Supple, JVD not distended Respiratory: Clear to auscultation bilaterally, Normal air movement Cardiovascular: Regular rate/rhythm, Normal S1 S2 Gastrointestinal: Normal bowel sounds, No tenderness Musculoskeletal: Erythema, Tenderness, Warmth Integumentary: Tenderness/swelling, Erythema, Warmth Neurological: Normal speech, Normal tone, Normal affect Lymphatics: No axilla or inguinal lymphadenopathy - Studies Medications List Reviewed: Yes Assessment And Plan Discharge Plan: LTAC Plan to discharge in: Greater than 2 days - Code Status/Comfort Care Code Status Assessed: Yes Physician Review Additional Text: Assessment/Plan: 1. Right lower extremity cellulitis with h/o chronic venous stasis and lymphedema -Cellulites with improvement this morning. -Patient currently on IV cefepime and vancomycin. -infectious disease consulted. Appreciated recommendations at this time -given the extensive nature of the right lower leg cellulitis and need for IV antibiotics patient will need to go to a [place] [facility] facility -case management consulted at this time. 2. Acute on chronic anemia with underlying iron/B12 deficiency -Continue with iron and B12 supplementation. -Hemoglobin has improved with transfusions. Patient has received a total of 3 units. -Maintain hemoglobin above 8.0. Continue to educate patient on no further use of nonsteroidal anti-inflammatories. 3.Likely underlying obstructive sleep apnea -recommend pulmonology evaluation and sleep study as an outpatient. 4. GERD -Continue with medication. -Will recommend GI evaluation as an outpatient. -Will recommend to discontinue nonsteroidal anti-inflammatories which patient was using at home extensively. 5. Morbid obesity, BMI 48.1 -Will address lifestyle modification education. Critical Care: No
--- NOTE | 2018-09-16 22:03 | PN ---
Subjective: The patient is lying in bed. Denies any headache, nausea, vomiting, chest pain, abdomin al pain, constipation, diarrhea. Objective: Vital Signs: Temperature 98, pulse 78, respiration 18, blood pressure 153/77. Lungs: Basal crackles. Heart: S1, S2. Regular. Abdomen: Soft, nontender. Bowel sounds present. Extremities: 2+ edema. Laboratory Data: WBC 7.8, hemoglobin 8.5, platelets 302. Sodium 135, potassium 4.7, chloride 100, b icarb 30, BUN 14, creatinine 0.8, glucose 104. Blood cultures are negative. The patient is currentl y on cefepime and vancomycin. Assessment And Plan: Right lower extremity cellulitis and stasis ulcers. Continue antibiotic and bean pportive care. Can be switched to oral on discharge. We will follow the patient as needed. MARCIA/MARTINEZ Voice ID: [id number] Report ID: [id number]
[2018-09-17] MEDS: CEFEPIME/SWI 2gm 2 GM/20 ML SYR IV SCH ×3 (01:28→17:31)
[2018-09-17] MEDS: HYDROCODONE/APAP 7.5/325 MG TAB PO PRN ×3 (04:49→17:32)
[2018-09-17] MEDS: VANCOMYCIN 2.25 GM in NA CHLORIDE 0.9% 500 ML IVPB SCH ×2 (04:50→15:06)
[2018-09-17 08:05] LABS: Absolute Lymphocytes (CBC) 0.7 K/uL (0.7-4.9); Absolute Monocytes 0.6 K/uL (0.1-1.3); Absolute Neutrophil 4.9 K/uL (1.8-8.0); Basophils % 0.9 % (0-1.3); Eosinophils % 3.5 % (0-4.4); Hematocrit 24.6 % (39.6-49.0); MPV 7.6 fL (7.6-11.3); Monocytes % 9.7 % (3.3-12.3); RBC Red Blood Cell Count 3.24 M/uL (4.33-5.43)
[2018-09-17 08:52] LABS: Blood Morphology Comment NOT SEEN (NOT SEEN); Platelet Estimate ADEQ
[2018-09-17] MEDS: MUPIROCIN 2% OINT 22GM TUBE TOP SCH (09:00)
[2018-09-17] MEDS: CYANOCOBALAMIN 1,000 MCG TAB PO SCH (09:00)
[2018-09-17] MEDS: FAMOTIDINE 20 MG TAB PO SCH (09:00)
[2018-09-17] MEDS: TRAMADOL HCL 50 MG TAB PO PRN ×2 (09:45→16:20)
[2018-09-17] MEDS: FERROUS SULFATE 325 MG TAB PO SCH (09:46)
[2018-09-17] MEDS: ENOXAPARIN 40 MG/0.4 ML SQ SCH (09:47)
[2018-09-17 14:15] VITALS: O2SAT 96
[2018-09-17 15:56] VITALS: BP 142/65; TEMP 97.5
--- NOTE | 2018-09-17 18:33 | P.DS ---
Admission Date: 09/10/18 Discharge Date: 09/17/18 Primary Care Provider: Dr. Johns Disposition: TRANSFER TO SNF - MEDICAL Discharge Condition: GOOD Reason for Admission: Right lower extremity pain and swelling Consultations: Infectious disease - Problems (1) Cellulitis of right lower extremity Status: Acute (2) Venous stasis Status: Acute (3) Morbid obesity with BMI of 40.0-44.9, adult Onset Date: 03/15/17 Status: Chronic (4) GERD (gastroesophageal reflux disease) Status: Suspected Qualifiers: Esophagitis presence: esophagitis presence not specified Qualified Code(s) : K21.9 - Gastro-esophageal reflux disease without esophagitis (5) Obstructive sleep apnea Status: Suspected Brief History of Present Illness: 43-year-old male presented to the emergency room with right lower extremity pain and swelling. Patient with history of severe chronic venous stasis, lymphedema. Patient was seen by the ER early this past week as per patient. Patient reports that he had noted some bleeding to the right lower extremity due to his varicose veins. Since then he has been taking ibuprofen up to 20 pills per day to help with pain. Increasing swelling, pain to the right lower extremity noted. Mild erythema noted as well. He denies any nausea, vomiting, melena or rectal bleeding. He denies any coughing up blood. He reported some lightheadedness today. Patient came to the ER for further evaluation. In the ER patient evaluated. Blood pressure remained stable. White count 5.7, hemoglobin 6.5. Prior hemoglobin 10. Sodium 135, potassium 3.7, BUN of 12, creatinine 0.97 with a GFR of 85. Glucose 110. Pro calcitonin negative. Lactic acid negative. Venous Doppler of the lower extremity up to the iliac region shows no DVT. Patient was admitted for inpatient treatment of right lower extremity cellulitis and acute on chronic anemia. When I saw the patient in the ER, he appeared stable. Patient still reported some lightheadedness with ambulation. Patient reported pain to the right lower extremity. Patient denies taking any prescription medication at this time. Patient has chronic venous stasis and lymphedema to the lower extremities. Patient with history of GERD, morbid obesity, and likely underlying obstructive sleep apnea. Hospital Course: Overall during the hospital stay patient remained stable Patient was initially admitted to the hospital for sepsis secondary to right lower leg cellulitis with chronic venous stasis and lymphedema. Patient was started on broad-spectrum antibiotics while here in the hospital. Patient also had infectious disease consulted on the case. Initially infectious disease given the nature of the cellulitis along with wound care demands recommended the patient go to [facility] facility on IV antibiotics for 2 weeks. Case management was consulted at that time and patient was continued on IV cefepime and vancomycin along with daily wound care. Patient had marked improvement in his symptoms after 72 hr being here in the hospital. Patient was then accepted at [facility] for [facility] facility for IV antibiotics and was thus transferred there for further care. Patient was educated extensively regarding morbid obesity causing his chronic venous stasis along with lymphedema and the need for diet and exercise and weight loss. Patient demonstrate understanding. Patient was also asked to follow up with primary care provider along with infectious disease doctor about 1-2 days post discharge. Patient was to continue with IV ce[facility]pime and [facility]comycin at the [facility] for total of 2 weeks with daily wound care. Infectious disease will follow patient at the [facility] as well. Vital Signs/Physical Exam: Temp Pulse Resp BP Pulse Ox 97.5 F 78 16 142/65 H 99 09/17/18 15:56 09/17/18 15:56 09/17/18 15:56 09/17/18 15:56 09/17/18 15:56 General: Alert, In no apparent distress, Obese HEENT: Atraumatic, PERRLA, EOMI Neck: Supple, JVD not distended Respiratory: Clear to auscultation bilaterally, Normal air movement Cardiovascular: Regular rate/rhythm, Normal S1 S2 Gastrointestinal: Normal bowel sounds, No tenderness Musculoskeletal: Erythema, Tenderness, Warmth Integumentary: No rashes Neurological: Normal speech, Normal tone, Normal affect Lymphatics: No axilla or inguinal lymphadenopathy Laboratory Data at Discharge: WBC 6.5 K/uL (4.3-10.9) D 09/17/18 07:25 Hgb 8.2 g/dL (13.6-17.9) L 09/17/18 07:25 Hct 24.6 % (39.6-49.0) L 09/17/18 07:25 Plt Count 322 K/uL (152-406) 09/17/18 07:25 PT 14.9 SECONDS (9.5-12.5) H 09/10/18 05:20 INR 1.27 09/10/18 05:20 Sodium 135 mmol/L (136-145) L 09/15/18 04:44 Potassium 4.7 mmol/L (3.5-5.1) 09/15/18 04:44 BUN 14 mg/dL (7-18) 09/15/18 04:44 Creatinine 0.80 mg/dL (0.55-1.3) 09/15/18 04:44 Glucose 104 mg/dL (74-106) 09/15/18 04:44 Magnesium 2.0 mg/dL (1.8-2.4) 09/15/18 04:44 Total Bilirubin 0.6 mg/dL (0.2-1.0) 09/10/18 05:20 AST 19 U/L (15-37) 09/10/18 05:20 ALT 19 U/L (12-78) 09/10/18 05:20 Alkaline Phosphatase 73 U/L (45-117) 09/10/18 05:20 Troponin I < 0.02 ng/mL (0.0-0.045) 09/10/18 05:20 Lipase 97 U/L (73-393) 09/10/18 05:20 Home Medications: NK [No Home Meds] 09/10/18 Patient Discharge Instructions: Please f.u with PCP and ID in 1 to 2 week post discharge. New medication. IV cefepime 2g q8h and IV vancomycin 2.25g q12h for 2 weeks Diet: Regular Activity: Ad avinash Followup: Geo Marie MD [ACTIVE - CAN ADMIT] - 1 Week (call to schedule appointment)
== END 2018-09-17 17:55 | DRG 603 ==
LOC: ER 03:35 → ERHOLD 07:34 → 4TH 08:09
PROVIDERS: ADMIT Family Medicine; ATTEND Family Medicine
PROC: 30233N1 Transfusion of Nonautologous Red Blood Cells into Peripheral Vein, Percutaneous Approach (ICD-10-PCS; principal; 2018-09-10)
PROC: 02HV33Z Insertion of Infusion Device into Superior Vena Cava, Percutaneous Approach (ICD-10-PCS; 2018-09-15)
DX: L03.115 Cellulitis of right lower limb (principal); Z68.42 Body mass index [BMI] 45.0-49.9, adult; D50.9 Iron deficiency anemia, unspecified; I83.11 Varicose veins of right lower extremity with inflammation; I87.8 Other specified disorders of veins; E66.01 Morbid (severe) obesity due to excess calories; G47.33 Obstructive sleep apnea (adult) (pediatric); K21.9 Gastro-esophageal reflux disease without esophagitis
CPT/HCPCS: 36415; 36430; 71045; 73701; 80048; 80076; 80202; 81003; 81015; 82550; 82607; 82728; 82962; 83540; 83605; 83690; 83735; 84145; 84439; 84443; 84466; 84484; 85014; 85018; 85025; 85610; 86850; 86900; 86901; 87040; 93005; 93306; 93971; 93978; 96365; 96366; 96367; 99285; J0692; J1650; J1940; J3370; J3420; J7030; P9016; Q9967

== ENCOUNTER 2018-11-21 10:54 | Inpatient (IN) | payer OTHER ==
--- OUTSIDE RECORDS SUMMARY | 2018-11-21 10:59 | XMS REPORT | Clinical Summary ---
:1975 Author Organization [facility] Address [address] [place] [address] Care Team Providers Name Role Phone Asked, [...] Not on file Results Not on fileafter 11/20/2017 Insurance Payer Benefit Plan / Subscriber ID Effective Dates Phone Address Type Group MEDICARE MEDICARE PART A xxxxxxxxxx 2012-Present [place], [place] Medicare AND B Advance Directives Patient has advance care planning documents, and code status on file. For more information, please contact:[address] [address] Code Status Date Activated Date Inactivated Comments Full Code 09/05/2015 4:35 PM 09/05/2015 7:28 PM Code Status decision reached by: Patient
[2018-11-21 11:26] LABS: Absolute Lymphocytes (CBC) 0.5 K/uL (0.7-4.9); Basophils % 0.3 % (0-1.3); Hematocrit 36.1 % (39.6-49.0); MPV 7.6 fL (7.6-11.3)
[2018-11-21 11:34] LABS: Albumin 3.6 g/dL (3.4-5.0); Bilirubin Direct 0.2 mg/dL (0-0.2); Bilirubin Total 0.5 mg/dL (0.2-1.0); Potassium 4.1 mmol/L (3.5-5.1)
--- NOTE | 2018-11-21 12:35 | RAD REPORT ---
EXAM DESCRIPTION: CT - Abdomen Pelvis W Contrast - 11/21/2018 12:03 pm CLINICAL HISTORY: Abdominal pain, history pain at hernia site, history of small bowel obstruction wi th perforated bowel, hernia repair, cholecystectomy appendectomy COMPARISON: CT imaging February 2017 TECHNIQUE: Biphasic, helical CT imaging of the abdomen and pelvis was performed following 100 ml non -ionic IV contrast. No oral contrast administered. All CT scans are performed using dose optimization technique as appropriate and may include automated exposure control or mA/KV adjustment according to patient size. FINDINGS: No suspicious findings in the lung bases. The liver, spleen, and pancreas show no suspicious findings. Gallbladder is absent. No biliary tree d ilatation. Symmetric renal function is seen with no hydronephrosis or suspicious renal mass. No pyelonephritis o r acute parenchymal process. Bladder is contracted limiting detail. Prostate gland and seminal vesicl es are normal. No adrenal abnormalities. Stomach is dilated and fluid-filled. No gastric wall thickening or mass. No outlet obstruction. Duode num is dilated. Patient has a small bowel obstruction pattern with substantially dilated small bowel involving the proximal 1/2 to 2/3 of the small bowel. Distal small bowel is decompressed. Moderate st ool volume is scattered within nondilated colon from cecum to sigmoid colon. There is large stool vol ume distending the rectum. An active or obstructive colon process is not identified. No free air or pneumatosis. No perforation or abscess. No pneumatosis identified. Patient has a thin and lax anterior abdominal wall with little identifiable rectus abdominis musculat ure. Multiple hernia sites are present and the patient has multifocal sites of obstruction. In the le ft mid abdomen (image 51/113) there is a a 5 centimeter hernia approximately 9 cm lateral of midline. Neck is approximately 3 cm. This contains a loop of jejunum and is the initial hernia contributing t o the multifocal small bowel obstruction pattern. Immediately inferior to this hernia is a seconds 8 centimeter diameter hernia with a 5-6 centimeter neck. This contains a loop of jejunum. This has a le ss significant contribution to the bowel obstruction. A third left lateral hernia site 12 cm off of m idline on the left contains 2 separate loops of small bowel and is contributing to the obstructive pr ocess. Patient has a large low-lying pannus which contains a hernia in the left lateral margin. The hernia i s 10-2012 cm in diameter containing small bowel. This also partially contributes to the small-bowel o bstruction process. A small ventral hernia 5 cm to the right of midline in the upper abdomen contains the anti mesenteric wall of the transverse colon. No wall thickening or edema. No obstruction from this hernia. A right lateral mid to lower abdomen spigelian hernia is present. This is 12-14 cm in maximum diameter within a wide but irregular neck. The herniated ascending colon shows no wall thickening or edema. Most of the ileum is decompressed. No mass or bulky lymphadenopathy. No omental thickening. No suspicious bony findings. IMPRESSION: Significant small bowel obstruction pattern involving the jejunum and probably a small p ortion of the proximal ileum. The patient has a complex multifocal abdominal wall hernia pattern with multiple separate sites of sm all bowel herniation each of which contributes to the small bowel obstruction pattern. Additional abdominal wall hernia sites containing portions of the ascending colon and transverse colo n. There are no obstruction findings associated with these hernias. No free air or pneumatosis. No bowel perforation.
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
[2018-11-21 13:10] LABS: Barbiturates NEGATIVE (NEGATIVE); Benzodiazepines NEGATIVE (NEGATIVE); Cocaine NEGATIVE (NEGATIVE); METHAMPHETAM POSITIVE (NEGATIVE); Methadone NEGATIVE (NEGATIVE); Opiates NEGATIVE (NEGATIVE); Phencyclidine NEGATIVE (NEGATIVE); THC Cannibis NEGATIVE (NEGATIVE)
[2018-11-21 13:21] LABS: Urine Blood NEGATIVE (NEG); Urine Glucose NEGATIVE (NEG); Urine Protein NEGATIVE (NEG); Urine Specific Gravity 1.015 (1.005-1.030); Urine pH 6.5 (5.0-7.0)
--- NOTE | 2018-11-21 13:47 | RAD REPORT ---
EXAM DESCRIPTION: RAD - Abdomen 1 View (KUB) - 11/21/2018 1:22 pm CLINICAL HISTORY: Device placement NG tube placement FINDINGS: A nasogastric tube has its tip in the gastric fundus
[2018-11-21] MEDS ORDERED: ONDANSETRON 4 MG/2 ML VIAL IV PRN (16:40)
[2018-11-21] MEDS: ENOXAPARIN 40 MG/0.4 ML SQ SCH (17:24)
[2018-11-21] MEDS: D5.45NS W/KCL 20MEQ 1,000 ML IV SCH (17:24)
[2018-11-22] MEDS: MORPHINE 2 MG/ML SYR IV PRN ×3 (00:23→13:54)
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
[2018-11-22] MEDS: D5.45NS W/KCL 20MEQ 1,000 ML IV SCH ×3 (02:40→12:40)
[2018-11-22 06:25] LABS: Absolute Lymphocytes (CBC) 0.8 K/uL (0.7-4.9); Basophils % 0.5 % (0-1.3); Hematocrit 31.9 % (39.6-49.0); Lymphocytes % 17.3 % (15.3-44.8); MPV 7.5 fL (7.6-11.3)
[2018-11-22 06:50] LABS: ALT/SGPT 17 U/L (12-78); AST/SGOT 17 U/L (15-37); Albumin 2.9 g/dL (3.4-5.0); Alkaline Phosphatase 84 U/L (45-117); BUN Blood Urea Nitrogen 14 mg/dL (7-18); Bicarbonate 29 mmol/L (21-32); Bilirubin Total 0.5 mg/dL (0.2-1.0); Glucose Level 89 mg/dL (74-106); Magnesium 2.3 mg/dL (1.8-2.4); Phosphorus 3.3 mg/dL (2.5-4.9); Protein, Total 7.7 g/dL (6.4-8.2); Sodium Level 141 mmol/L (136-145)
[2018-11-22 07:26] VITALS: BMI 44.6
[2018-11-22 07:53] LABS: Urine Appearance CLEAR; Urine Blood NEGATIVE (NEG); Urine Color DK YELLOW; Urine Glucose NEGATIVE (NEG); Urine Protein NEGATIVE (NEG); Urine Specific Gravity >=1.030 (1.005-1.030); Urine pH 5.5 (5.0-7.0)
[2018-11-22] MEDS: ENOXAPARIN 40 MG/0.4 ML SQ SCH (08:22)
[2018-11-22 08:47] LABS: Urine Bilirubin NEGATIVE (NEG); Urine Microscopic Reflex NO UMIC
[2018-11-22 09:17] VITALS: O2SAT 97
[2018-11-22 10:49] VITALS: TEMP 97.7
[2018-11-22] MEDS ORDERED: MINERAL OIL 30 ML UCUP FT ONE (12:20)
--- NOTE | 2018-11-22 13:04 | P.CNS ---
Date of Consult: 11/22/18 S: Patient says his abdominal pain has diminished. He has been up ambulating. Had 3 bowel movements today. Has been able walk around the hospital and down to the outside. O: Abdomen is soft, nontender, alternatives are reducible. Minimal out through the nasogastric tube. These bilateral varicose veins are clear and he has changes dress himself today. P: Recommend this patient against 60 cc of mineral oil. Dc NG tube. He may be started on clear liquids, and if tolerated may be discharged at the hospitalist discretion. We have also discussed the issues of ongoing wound care, employment opportunities, and avoiding any recreational drugs.
[2018-11-22 14:40] VITALS: BP 126/86
--- NOTE | 2018-11-23 04:34 | DS ---
Date of Discharge: 11/22/2018 Consultants: Dr. Rincon with General Surgery. Procedures: None. Discharge Diagnoses: 1. Small bowel obstruction secondary to multiple ventral abdominal hernias. 2. Chronic venous stasis changes. 3. Drug abuse with amphetamine. 4. History of testicular cancer. 5. Large multiple ventral abdominal hernias, reducible. 6. Obstructive sleep apnea. 7. Morbid obesity. Body mass index of 46. 8. Gastroesophageal reflux disease without esophagitis. 9. Chronic venous stasis insufficiency with lymphedema. Hospital Course: The patient is a 43-year-old male with past medical history of multiple abdominal hernias, severe chronic venous stasis changes and lymphedema, comes in with abdominal pain, nausea, and vomiting. The patient was found to have small-bowel obstruction, found on CT scan. Dr. Rincon with General Surgery was consulted. The patient was kept n.p.o. NG tube was placed. The patient had improvement. He had approximately 700 mL out from the NG tube. The patient felt better. He was able to pass gas. The patient was evaluated by Dr. Rincon who did not recommend any surgical intervention. The patient was unable to ambulate and NG tube was clamped. He was able to tolerate clear liquids and therefore his diet was advanced. The patient tolerated GI soft diet and was cleared for discharge from Dr. Rincon's standpoint. The patient did well and improved much quicker than expected. He was counseled regarding modified diet and low residue diet. He needs to follow up with Dr. Rincon in a couple of weeks. He was counseled regarding use of methamphetamines and other substance abuse. The patient voiced understanding. Condition: Stable. Activity: As tolerated. Diet: Lane. Followup: Follow up with primary care physician in 2-3 days. Return to ER for worsening condition. Follow up with surgeon, Dr. Rincon, in 2 weeks. Medications: As per medication reconciliation list. Physical Examination: General: Awake, alert, oriented x3. Morbidly obese male. CV: S1, S2. No murmurs. Respiratory: Moving air well bilaterally. Abdomen: Soft, nondistended. Positive bowel sounds. No guarding or rigidity. The patient has multiple ventral hernias, reducible. Extremities: No clubbing, cyanosis. The patient has peripheral edema. Skin: Chronic venous stasis changes. No signs of acute infection. Neurologic: Nonfocal. SA/MODL Voice ID: [id number] Report ID: [id number] MTDYayo
== END 2018-11-22 16:20 | disposition home or self-care (01) | DRG 394 ==
LOC: ER 10:54 → ERHOLD 14:27 → 4TH 15:42
PROVIDERS: ADMIT Family Medicine; ATTEND Family Medicine
DX: K43.6 Other and unspecified ventral hernia with obstruction, without gangrene (principal); Z68.42 Body mass index [BMI] 45.0-49.9, adult; I87.8 Other specified disorders of veins; F15.10 Other stimulant abuse, uncomplicated; G47.33 Obstructive sleep apnea (adult) (pediatric); E66.01 Morbid (severe) obesity due to excess calories; K21.9 Gastro-esophageal reflux disease without esophagitis; I87.2 Venous insufficiency (chronic) (peripheral); I89.0 Lymphedema, not elsewhere classified; Z85.47 Personal history of malignant neoplasm of testis
CPT/HCPCS: 36415; 74018; 74177; 80048; 80053; 80076; 80307; 81003; 83690; 83735; 84100; 85025; 94760; 99285; J1650; J2270; Q9966

== ENCOUNTER 2018-12-05 21:09 | Emergency (ER) | payer OTHER ==
[2018-12-05] MEDS ORDERED: DIPHENHYDRAMINE 50 MG/ML VIAL ONE (21:47)
[2018-12-05 22:17] LABS: Hematocrit 32.2 % (39.6-49.0); Lymphocytes % 16.3 % (15.3-44.8); MPV 7.7 fL (7.6-11.3); RBC Red Blood Cell Count 4.37 M/uL (4.33-5.43)
[2018-12-05] MEDS ORDERED: METHYLPREDNISOLONE 125 MG INJ ONE (22:28)
[2018-12-05 22:33] LABS: Potassium 3.5 mmol/L (3.5-5.1)
[2018-12-05] MEDS ORDERED: levoFLOXacin 750 MG TAB ONE (23:00)
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
--- NOTE | 2018-12-05 23:32 | P.CNS ---
Date of Consult: 12/05/18 Reason for Consult: Right leg pain and rash Requesting Physician: Blayne Crawford Chief Complaint: Right leg pain and rash History of Present Illness: 43-year-old incarcerated man with a history of recurrent bowel obstruction, history bilateral lower extremity lymphedema with chronic venous stasis dermatitis and weeping ulcers, varicose veins present to the ED with a complaint of right leg pain in rash. He was recently admit and treated for bowel obstruction which was managed conservatively with spontaneous resolution. Patient reports recently completing a prolonged course of IV antibiotics. In the ED, patient noted to be afebrile, has no leukocytosis. BMP unremarkable. Allergies cabbage Allergy (Verified 09/13/18 18:08) Nausea/Vomiting No Known Drug Allergies Allergy (Verified 02/19/16 09:53) Unknown spinach Allergy (Verified 09/13/18 18:08) Nausea/Vomiting Home Medications: NK [No Home Meds] 11/21/18 - Past Medical/Surgical History Diabetic: No -: History of testicular cancer -: History of small bowel obstruction -: History of multiple abdominal surgeries -: Large abdominal hernias -: Likely underlying obstructive sleep apnea -: Morbid obesity -: Varicose veins -: GERD -: Venous stasis with insufficiency of the lower extremity -: Lymphedema to the lower extremity -: Appendectomy -: Cholecystectomy -: Bowel repair secondary to bowel perforation -: Hernia mesh repair Psychosocial/ Personal History: The patient is single. He has 2 children. He is currently disabled. - Family History Father Medical History: Heart disease - Social History Smoking Status: Current every day smoker Alcohol use: No CD- Drugs: No Caffeine use: Yes Review of Systems Other: General: No fever, no malaise, no unintentional weight loss. Eyes: No eye discharge, Respiratory: No cough, no shortness of breath. CVS: No chest pain, no palpitation, no lightheadedness. GI: No abdominal pain, no nausea no vomit, no constipation, no diarrhea. Genitourinary: No dysuria, no urinary frequency, no incontinence, no hematuria. Neurology: No headache, no asymmetric, weakness, no problem with swallowing. Except as documented, all other systems reviewed and negative. Physical Examination General: Alert, In no apparent distress, Oriented x3 HEENT: Atraumatic, Normocephalic, PERRLA, Mucous membr. moist/pink Neck: 2+ carotid pulse no bruit, JVD not distended Respiratory: Clear to auscultation bilaterally, Normal air movement Cardiovascular: Edema (3+ bilateral lower extremity edema and lymphedema.) Gastrointestinal: Normal bowel sounds, Soft and benign, No ascites Musculoskeletal: Other (Bilateral lower extremity lymphedema.) Integumentary: Other (Bilateral lower extremity venostasis dermatitis and xerosis with weeping sores on the right.) Neurological: Normal strength at 5/5 x4 extr, Cranial nerves 3-12 intact Laboratory Data (last 24 hrs) 12/05/18 21:52: Sodium 141, Potassium 3.5, BUN 14, Creatinine 0.98, Glucose 88 12/05/18 21:52: WBC 6.0 D, Hgb 10.2 L, Hct 32.2 L, Plt Count 209 - Problems (1) Venous stasis dermatitis of both lower extremities Status: Chronic (2) Morbid obesity with BMI of 40.0-44.9, adult Onset Date: 03/15/17 Status: Chronic (3) Varicose veins of both lower extremities Onset Date: 03/15/17 Status: Chronic Conclusions/Impression: Patient has chronic venostasis dermatitis with weeping sores. He is afebrile, has no leukocytosis, no asymmetry in swelling or erythema of the lower extremities. Patient has chronic appearing venous stasis dermatitis and xerosis of the bilateral lower extremities. Recommend to keep his legs elevated. Recommend follow up at the lymphedema clinic. He may need a lymphedema wrap.
[2018-12-05 23:46] VITALS: O2SAT 100
[2018-12-05 23:49] VITALS: BP 148/90; TEMP 98.6
== END 2018-12-05 23:31 | disposition home or self-care (01) ==
LOC: ER 21:09
DX: I87.303 Chronic venous hypertension (idiopathic) without complications of bilateral lower extremity (principal); I10 Essential (primary) hypertension; Z91.018 Allergy to other foods
CPT/HCPCS: 85025; 80048; 36415; 96372; 99284; J2930

== ENCOUNTER 2019-02-04 00:32 | Emergency (ER) | payer OTHER ==
[2019-02-04] MEDS ORDERED: LIDOCAINE 1% W/EPI 1:100,000 MDV 20 ML VIAL ONE (01:09)
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
[2019-02-04] MEDS ORDERED: CEPHALEXIN 250 MG CAP ONE (01:42)
[2019-02-04 02:17] VITALS: TEMP 98.1
[2019-02-04 02:19] VITALS: BP 140/78; O2SAT 99
== END 2019-02-04 02:01 | disposition home or self-care (01) ==
LOC: ER 00:32
PROC: 0JQN0ZZ Repair Right Lower Leg Subcutaneous Tissue and Fascia, Open Approach (ICD-10-PCS; principal; 2019-02-04)
DX: I83.891 Varicose veins of right lower extremity with other complications (principal); I10 Essential (primary) hypertension; Z85.9 Personal history of malignant neoplasm, unspecified
CPT/HCPCS: 99284

== ENCOUNTER 2019-02-09 20:48 | Inpatient (IN) | payer OTHER ==
[2019-02-09] MEDS ORDERED: MORPHINE 4 MG/ML SYR ONE (21:41)
[2019-02-09] MEDS ORDERED: ONDANSETRON 4 MG/2 ML VIAL ONE (21:41)
[2019-02-09 21:43] LABS: Basophils % 0.5 % (0-1.3); Hematocrit 33.5 % (39.6-49.0); Lymphocytes % 17.1 % (15.3-44.8); RBC Red Blood Cell Count 4.52 M/uL (4.33-5.43)
[2019-02-09 22:01] LABS: Albumin 3.5 g/dL (3.4-5.0); Bilirubin Direct 0.2 mg/dL (0-0.2); Bilirubin Total 0.6 mg/dL (0.2-1.0); Potassium 3.6 mmol/L (3.5-5.1); Protein, Total 7.4 g/dL (6.4-8.2)
[2019-02-09 22:34] LABS: Anisocytosis 2+; Blood Morphology Comment NOTED (NOT SEEN); Platelet Estimate ADEQ; Urine White Blood Cell Casts OK
[2019-02-09 22:35] LABS: Ovalocytes 1+
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
[2019-02-10] MEDS ORDERED: KETOROLAC 30 MG/ML INJ ONE (00:30)
[2019-02-10] MEDS ORDERED: CIPROFLOXACIN 400mg IV 400 MG/200 ML BAG IV ONE (01:35)
[2019-02-10] MEDS: Levofloxacin500mg IV 500 MG/100 ML BAG IV SCH (02:00)
[2019-02-10 02:48] VITALS: BMI 41.8
[2019-02-10] MEDS: NA CHLORIDE 0.9% 1,000 ML IV SCH ×3 (03:41→21:36)
[2019-02-10] MEDS: METRONIDAZOLE 500mg IVPB 500 MG/100 ML BAG IV SCH ×4 (05:00→23:49)
[2019-02-10 06:06] LABS: Absolute Lymphocytes (CBC) 0.8 K/uL (0.7-4.9); Basophils % 0.7 % (0-1.3); Hematocrit 31.1 % (39.6-49.0); Lymphocytes % 20.1 % (15.3-44.8); MPV 7.9 fL (7.6-11.3); RBC Red Blood Cell Count 4.23 M/uL (4.33-5.43)
[2019-02-10 06:12] LABS: Protime INR 1.11
[2019-02-10 06:29] LABS: ALT/SGPT 20 U/L (12-78); AST/SGOT 14 U/L (15-37); Alkaline Phosphatase 79 U/L (45-117); BUN Blood Urea Nitrogen 11 mg/dL (7-18); Bicarbonate 27 mmol/L (21-32); Bilirubin Total 0.7 mg/dL (0.2-1.0); Glucose Level 97 mg/dL (74-106); Potassium 3.6 mmol/L (3.5-5.1); Protein, Total 6.9 g/dL (6.4-8.2); Sodium Level 140 mmol/L (136-145)
--- NOTE | 2019-02-10 07:35 | P.HP ---
Certification for Inpatient Patient admitted to: Inpatient With expected LOS: >2 Midnights Patient will require the following post-hospital care: None Practitioner: I am a practitioner with admitting privileges, knowledge of patient current condition, hospital course, and medical plan of care. Services: Services provided to patient in accordance with Admission requirements found in Title 42 Section 412.3 of the Code of Federal Regulations Patient History Date of Service: 02/10/19 Reason for admission: SBO History of Present Illness: Patient is a 43-year-old gentleman who comes into the hospital with a small- bowel obstruction. I have known patient from multiple admissions in the past. He was diagnose with testicular cancer her when he was 3 years old. Since that time he has had numerous hospitalizations. He has had an abdominal hernia that has had surgery including mesh. He really does not have much of an abdominal wall to where he can have any further surgery. Did have some recent surgery at [facility]. He came in last night because he was feeling nauseated and having abdominal pain. He thought he may have an obstruction. In the ER he had a CT scan which reveals similar findings from his prior CTs which reveal a small -bowel obstruction. He did have a bowel movement earlier in the day. He has not had any vomiting although he does feel nauseated. In the ER, he had an NG- tube placed. I spoke with the ER physician to make sure surgery on-call was agreeable to keep Mr. perez in the hospital because of the complexity of his care. Otherwise, plan to admit patient for inpatient hospitalization. Will clamp NG tube in the morning and see how he does. He tends to improve quite quickly and hopefully this will be the case on this admission as well. Allergies cabbage Allergy (Verified 02/10/19 02:54) Nausea/Vomiting No Known Drug Allergies Allergy (Verified 02/10/19 02:54) Unknown spinach Allergy (Verified 09/13/18 18:08) Nausea/Vomiting Home Medications: NK [No Home Meds] 11/21/18 - Past Medical/Surgical History Diabetic: No -: History of testicular cancer -: History of small bowel obstruction -: History of multiple abdominal surgeries -: Large abdominal hernias -: Likely underlying obstructive sleep apnea -: Morbid obesity -: Varicose veins -: GERD -: Venous stasis with insufficiency of the lower extremity -: Lymphedema to the lower extremity -: Appendectomy -: Cholecystectomy -: Bowel repair secondary to bowel perforation -: Hernia mesh repair Psychosocial/ Personal History: The patient is single. He has 2 children. He is currently disabled. - Family History Father Medical History: Heart disease - Social History Smoking Status: Unknown if ever smoked Review of Systems 10-point ROS is otherwise unremarkable Physical Examination - Vital Signs Temperature: 97.6 F Blood Pressure: 143/88 Pulse: 76 Respirations: 16 Pulse Ox (%): 100 - Physical Exam General: Alert, In no apparent distress, Oriented x3 HEENT: Atraumatic, PERRLA, Mucous membr. moist/pink, EOMI, Sclerae nonicteric Neck: Supple, 2+ carotid pulse no bruit, No LAD, Without JVD or thyroid abnormality Respiratory: Clear to auscultation bilaterally, Normal air movement Cardiovascular: Regular rate/rhythm, Normal S1 S2, No murmurs Gastrointestinal: Normal bowel sounds, No tenderness, No rebound, No guarding, Distended Musculoskeletal: No tenderness Integumentary: No rashes Neurological: Normal gait, Normal speech, Normal strength at 5/5 x4 extr, Normal tone, Sensation intact, Cranial nerves 3-12 intact, Normal affect Lymphatics: No axilla or inguinal lymphadenopathy - Studies Laboratory Data (last 24 hrs) 02/09/19 21:30: Creatinine 0.92 02/09/19 21:30: WBC 5.8, Hgb 11.0 L, Hct 33.5 L, Plt Count 200 02/09/19 21:30: Sodium 138, Potassium 3.6, BUN 13, Creatinine 0.95, Glucose 102 , Total Bilirubin 0.6, AST 19, ALT 21, Alkaline Phosphatase 82, Lipase 63 L Assessment & Plan - Problems (Diagnosis) (1) Small bowel obstruction Current Visit: Yes Status: Acute (2) Abdominal hernia Onset Date: 03/15/17 Current Visit: No Status: Acute Qualifiers: Hernia type: other abdominal hernia Obstruction and gangrene presence: without obstruction or gangrene Qualified Code(s): K45.8 - Other specified abdominal hernia without obstruction or gangrene (3) Abdominal pain Onset Date: 03/15/17 Current Visit: No Status: Acute (4) Morbid obesity with BMI of 40.0-44.9, adult Onset Date: 03/15/17 Current Visit: No Status: Chronic (5) Venous stasis dermatitis of both lower extremities Current Visit: No Status: Chronic (6) GERD (gastroesophageal reflux disease) Current Visit: No Status: Suspected Qualifiers: Esophagitis presence: esophagitis presence not specified Qualified Code(s) : K21.9 - Gastro-esophageal reflux disease without esophagitis (7) Obstructive sleep apnea Current Visit: No Status: Suspected - Plan Plan: 1. NG tube to low intermittent wall suctioning.; plan to clamp in the morning 2. IV hydration 3. Pain control 4. Anti emetics 5. IV antibiotics 6. GI and DVT prophylaxis Discharge Plan: Home Plan to discharge in: Greater than 2 days - Advance Directives Does patient have a Living Will: No Does patient have a Durable POA for Healthcare: No - Code Status/Comfort Care Code Status Assessed: Yes Code Status: Full Code Critical Care: No Time Spent Managing PTS Care (In Minutes): 45
[2019-02-10] MEDS ORDERED: KCL 20 MEQ/100 mL IVPB 20 MEQ/100 ML BAG IV SCH (08:00)
--- NOTE | 2019-02-10 08:10 | RAD REPORT ---
EXAM DESCRIPTION: RAD - Abdomen 1 View (KUB) - 02/10/2019 1:30 am CLINICAL HISTORY: ABD PAIN Pain COMPARISON: Abdomen 1 View (KUB) dated 11/21/2018; Abdomen Pelvis W Contrast dated 02/09/2019 FINDINGS: Dilated bowel loops are seen in the central abdomen with numerous surgical clips present. Mechanical small-bowel obstruction is likely present. No free intraperitoneal air seen. Contrast is s een bladder.
--- NOTE | 2019-02-10 08:25 | RAD REPORT ---
EXAM DESCRIPTION: RAD - Abdomen Acute Series - 02/10/2019 7:50 am CLINICAL HISTORY: SBO COMPARISON: Abdomen 1 View (KUB) dated 02/10/2019; Abdomen 1 View (KUB) dated 11/21/2018; Chest Single View dated 09/16/2018; Chest Single View dated 09/12/2018 FINDINGS: The lungs appear clear. The heart is normal in size. Enteric tube tip is in the stomach. N o finding to suggest pneumoperitoneum. Multiple dilated small bowel loops in the central abdomen jennifer in present, most compatible with moderate mechanical small-bowel obstruction. Postsurgical clips proj ect over the lumbar spine.
[2019-02-10] MEDS: HYDROMORPHONE HCL 1 MG/ML INJ IV PRN ×3 (08:29→23:56)
[2019-02-10] MEDS: ENOXAPARIN 40 MG/0.4 ML SQ SCH (08:30)
[2019-02-10] MEDS: ONDANSETRON 4 MG/2 ML VIAL IV PRN (08:30)
--- NOTE | 2019-02-10 11:31 | RAD REPORT ---
EXAM DESCRIPTION: CT ABDOMEN PELVIS WITH IV CONTRAST COMPARISON: CT abdomen pelvis November 21, 2018 CLINICAL HISTORY: Abdominal pain TECHNIQUE: Multiple helical axial images were obtained through the abdomen and pelvis using intraven ous contrast. Coronal and sagittal reformatted images were obtained. Delayed images were obtained. All CT scans at this facility use dose modulation, iterative reconstruction, and/or weight-based dosi ng when appropriate to reduce radiation dose to as low as reasonably achievable. FINDINGS: Lung bases: Appear unremarkable. Liver: Homogenous attenuation is noted. Gallbladder/biliary: Appears unremarkable Pancreas: Fatty changes noted. No evidence of ductal enlargement. Spleen: Appears unremarkable. No splenomegaly. Adrenals: Unremarkable. Kidneys and ureters: No evidence of hydronephrosis. Normal enhancement. Bladder: Unremarkable. Pelvic organs: Unremarkable. Bowel/abdominal wall: Several dilated small bowel loops containing fluid are demonstrated within the lower abdomen. There is a sharp transition between dilated and decompressed small bowel within the ri ght lower abdomen (series 5, image 73) compatible with distal small bowel obstruction. There is sugge stion of a point of obstruction more proximally with a short segment dilated small bowel loop within a left paramidline abdominal wall hernia with narrowed opposing afferent and efferent segments (serie s 604, image 94). Additional narrowed segment of small bowel on series 604, image 74) may represent a n additional transition point. A right lateral abdominal wall hernia is demonstrated containing nondi lated colon. There are a few small fat-containing ventral abdominal wall hernias. Small right anterio r abdominal wall hernia above the umbilicus containing nondilated colon (series 5, image 35). No lisseth l wall thickening. Appendix is not well seen. Vasculature: Unremarkable. Peritoneum: No free air. No significant free fluid. Several surgical clips in the retroperitoneum are demonstrated. Lymph nodes: A few mildly prominent nonspecific inguinal nodes are noted bilaterally. Soft tissues: There are a few small peripherally calcified fat-containing structures within the ventr al abdominal wall which are nonspecific and benign-appearing. Bones: Chronic bilateral pars defects at L5 are demonstrated with grade 2 anterolisthesis of L5 relat garrick to S1. Degenerative changes of the lumbar spine are present. IMPRESSION: 1. Findings compatible with distal small bowel obstruction with definite transition poin t in the right lower abdomen and possible additional transition points as above. 2. Several abdominal wall hernias with left ventral hernia containing dilated small bowel and possibl y contributing to obstruction. Electronically signed by: Nolberto Turcios MD 02/09/2019 11:32 PM CDT Due to temporary technical issues with the PACS/Fluency reporting system, reports are being signed by the in house radiologist as a courtesy to ensure prompt reporting. The interpreting radiologist is f ully responsible for the content of the report.
--- NOTE | 2019-02-10 15:00 | CON ---
Date of Consultation: 02/10/2019 Reason For Consultation: Small bowel obstruction. History Of Present Illness: Patient is a 43-year-old gentleman who presents to the emergency room wi th 3-4 day history of nausea and vomiting. He did have a bowel movement last night. He did pass gas at that time. He has had multiple episodes of partial small bowel obstruction in the past. He has had multiple abdominal surgeries and has multiple hernia. He had a CAT scan in the emergency room, w hich revealed a similar finding as his last admission which was in November of this year. He was admit calos. NG tube was placed. He was made n.p.o. and I was consulted. He is awake, alert, kind of drows y probably from the pain medicine. He also has lymphedema in the lower extremity. No sore throat, r unny nose, cough, headaches, or dizziness. No chest pain. No fever or chills. Review of Systems: Otherwise unremarkable. Past Medical History: Significant for morbid obesity, sleep apnea, GERD, history of testicular cance r, history of small bowel obstruction, lymphedema. Past Surgical History: Multiple abdominal surgeries for hernia, bowel repair secondary to bowel perf oration, appendectomy, cholecystectomy. Allergies: NONE. Social History: Patient has smoked in the past. Denies drinking. Family History: Noncontributory. Physical Examination: Vital Signs: Stable. He is afebrile. General: He is awake, alert, and oriented x3, drowsy. Head and Neck: Cranial nerves 2 through 12 grossly within normal limits. No neck masses. No JVD. Throat clear. Neck: Supple. Chest: Clear. Heart: S1, S2. Abdomen: Soft, slightly distended. Multiple abdominal wall hernia reducible, not tense, not red, no t tender. Slightly hypoactive bowel sounds. Minimal tenderness. No rebound, rigidity, or guarding. Extremities: Adequately perfused. Lymphedema present. Neuro: Nonfocal. Laboratory Data: White count is 4.1, there is no left shift. INR is 1.11. Chemistry reviewed. Rosangela ctrolytes are essentially within normal limits. CT of the abdomen and pelvis reviewed with Dr. Dick. It shows small bowel loops containing fluid in the lower abdomen. There is a transition point betw een dilated and decompressed bowel within the right lower quadrant. Short-segment dilated small lisseth l loop within the left paramedian abdominal wall hernia with narrowed opposing afferent and efferent loops. There may be additional transition point. Right lateral abdominal wall hernia is demonstrate d containing the nondilated colon, few small fat containing ventral abdominal wall hernias. These fi ndings are similar to patient's previous findings on multiple admissions, may have not significantly changed. Assessment: Small-bowel obstruction. Recommendations: At this point, n.p.o., NG tube, IV fluid, IV antibiotic. We will get abdominal x-r ay tomorrow to follow the patient. No need for any acute surgical intervention and I would recommend that patient not get any surgical intervention here. He has very high risk. He has no abdominal wa ll to speak of. He would need reconstruction and he would need to be a tertiary care facility for an y intervention should it be needed. We will try to manage him medically while he is here. Plan of c are discussed in detail with Dr. Underwood. WILFRID/MARTINEZ Voice ID: [id number] Report ID: [id number]
--- NOTE | 2019-02-10 15:00 | PN ---
Date of Progress Note: 02/10/2019 Subjective: Patient seen and examined. Chart reviewed and case discussed with RN and Dr. Rowe. Inderjit cortez has NG tube in place. Still having some abdominal discomfort. Medications: List reviewed. Physical Examination: Vital Signs: Temperature 97.1, heart rate 72, blood pressure 132/93, respirations 20, O2 100% on mary m air. General: Awake, alert, oriented x3, ill-appearing male, morbidly obese. CV: S1, S2. Regular rate and rhythm. Peripheral pulses present. Respiratory: Diminished breath sounds at the bases. No wheezing or stridor. Gastrointestinal: Abdomen is distended. Absent bowel sounds. Ventral hernia reducible. Extremities: No clubbing or cyanosis. Patient has bilateral lower extremity edema. Neurologic: Nonfocal. Skin: Patient has right lower extremity venous lesion that is stitched with dressing. Laboratory Data: Sodium 140, potassium 3.6, chloride 106, CO2 of 27, BUN 11, creatinine 0.79, glucos e 97, calcium 8.8, phosphorus 4, magnesium 2. WBC 4.1, H and H 10.5 and 31.1, platelets 182, neutrop hils 61%. Assessment: 43-year-old male with; 1.Small bowel obstruction, recurrent. Continue with NG tube decompression. Appreciate Dr. Rowe's input. Patient has had multiple previous abdominal surgeries and has hernia. CT scan shows small humphrey wel obstruction. If patient needs surgery, he will need to go to [facility] where his previous surger y was for abdominal reconstruction. 2.Abdominal wall hernia without obstruction or gangrene, stable. 3.Abdominal pain secondary to above, improving. 4.Morbid obesity, BMI of 41. Counseled. 5.Venous stasis dermatitis of bilateral lower extremities. Continue with compression. 6.Gastroesophageal reflux disease without esophagitis. 7.Obstructive sleep apnea. Continue CPAP at night. 8.Venous lesion with stitches in place. We will [facility] for dressing changes. Plan: N.p.o. Continue NG tube daily. Abdominal x-rays. Pain control and antiemetics. Continue IV antibiotics. Appreciate Dr. Rowe's input. SA/MODL Voice ID: [id number] Report ID: [id number]
[2019-02-11] MEDS: Levofloxacin500mg IV 500 MG/100 ML BAG IV SCH (01:34)
[2019-02-11] MEDS: NA CHLORIDE 0.9% 1,000 ML IV SCH (04:40)
[2019-02-11] MEDS: METRONIDAZOLE 500mg IVPB 500 MG/100 ML BAG IV SCH ×4 (05:19→23:23)
[2019-02-11] MEDS: HYDROMORPHONE HCL 1 MG/ML INJ IV PRN ×4 (05:26→21:12)
[2019-02-11 05:52] LABS: BUN Blood Urea Nitrogen 7 mg/dL (7-18); Bicarbonate 30 mmol/L (21-32); Glucose Level 91 mg/dL (74-106); Potassium 3.9 mmol/L (3.5-5.1); Sodium Level 140 mmol/L (136-145)
[2019-02-11] MEDS ORDERED: KCL 20 MEQ/100 mL IVPB 20 MEQ/100 ML BAG IV SCH (08:00)
[2019-02-11] MEDS: ENOXAPARIN 40 MG/0.4 ML SQ SCH (08:31)
[2019-02-11] MEDS: D5.45NS W/KCL 20MEQ 20 MEQ/1,000 ML BAG IV SCH ×2 (11:11→21:29)
--- NOTE | 2019-02-11 12:14 | RAD REPORT ---
EXAM DESCRIPTION: RAD - Abdomen W Erect - 02/11/2019 12:05 pm CLINICAL HISTORY: SBO COMPARISON: ABDOMEN W ERECT dated 03/08/2014; Abdomen 1 View (KUB) dated 02/10/2019; Abdomen Pelvi s W Contrast dated 02/09/2019 None. TECHNIQUE: Supine and upright views of the abdomen were obtained. FINDINGS: No free air or pneumatosis have developed. Numerous surgical clips are again noted in the midline abdomen. Multiple dilated small bowel loops are present. Pattern is similar to the prior imag ing. No suspicious calcifications. IMPRESSION: Small bowel dilatation pattern has not significantly changed from February 10. No free air or pneumatosis.
[2019-02-11] MEDS: MINERAL OIL 30 ML UCUP PO SCH ×2 (14:05→21:12)
--- NOTE | 2019-02-11 16:13 | PN ---
Date of Progress Note: 02/11/2019 Subjective: Patient is seen and examined. Chart reviewed and case discussed with RN and Dr. Rowe. Patient is doing better. Has not ambulated since yesterday, not passing any gas. Pain is stable. Medications: Reviewed. Physical Examination: Vital Signs: Temperature 97.6, heart rate 71, blood pressure 146/92, respirations 20, O2 of 97% on r oom air. General: Awake, alert, oriented x3. Morbidly obese male, in some mild distress. CV: S1, S2. Regular rate and rhythm. Peripheral pulses present. Respiratory: Moving air well bilaterally. No wheezing or stridor. No use of accessory muscles. Gastrointestinal: Abdomen is soft. Mild tenderness to palpation. Minimal distention. Bowel sounds are absent. Extremities: No clubbing, cyanosis. Patient has chronic venous stasis ulcerations of bilateral lowe r extremities. Skin: Patient has a wound on the right lower extremity with Surgicel and stitches in place. Neurologic: Nonfocal. Laboratory Data: Sodium 140, potassium 3.9, chloride 106, CO2 of 30, BUN 7, creatinine 0.87, glucose 91, calcium 8.6. CBC is pending. Assessment: A 43-year-old male with: 1.Recurrent small bowel obstruction. Continue with NG tube decompression. Abdominal x-ray pending for tonight. Dr. Rowe is on board. Appreciate his input. Patient has complicated abdominal histor y with multiple surgeries, hernias. 2.Abdominal wall hernia without obstruction or gangrene, stable. 3.Abdominal pain secondary to above, improving. 4.Morbid obesity, BMI 41. Counseled. 5.Venous stasis dermatitis of bilateral lower extremities. Continue with compression. 6.Gastroesophageal reflux disease without esophagitis. 7.Obstructive sleep apnea. Continue CPAP at night. 8.Right lower extremity venous lesion with stitches and Surgicel in place. Continue with dressing c hanges. Plan: Keep n.p.o. Abdominal x-ray tonight. Continue with pain control, IV antiemetics and IV antib iotics. Continue with IV fluids. SA/MODL Voice ID: [id number] Report ID: [id number]
--- NOTE | 2019-02-11 19:12 | PN ---
Date of Progress Note: 02/11/2019 Subjective: Patient is awake and alert. Staff states that he goes downstairs and drinks coffee when he is not supposed to. He states that he is passing a little bit of gas. No bowel movement. His a bdominal x-ray was done, which showed no significant change from when he was admitted. His abdomen; however, it feels more soft, less distended. There are some bowel sounds. There is no tenderness or peritonitis. Assessment: Small bowel obstruction likely partial. Recommendation: We will initiate mineral oil in his NG tube. Encourage ambulation. We will check a [facility] x-ray tomorrow. Hopefully, we can start him on clear liquids tomorrow and advance diet as colt erated assuming that he is clinically improves. /MODL Voice ID: [id number] Report ID: [id number]
[2019-02-11] MEDS: ONDANSETRON 4 MG/2 ML VIAL IV PRN (21:26)
[2019-02-12] MEDS: Levofloxacin500mg IV 500 MG/100 ML BAG IV SCH (01:25)
[2019-02-12] MEDS: HYDROMORPHONE HCL 1 MG/ML INJ IV PRN ×6 (01:32→22:11)
[2019-02-12] MEDS: MINERAL OIL 30 ML UCUP PO SCH ×3 (05:09→21:51)
[2019-02-12] MEDS: METRONIDAZOLE 500mg IVPB 500 MG/100 ML BAG IV SCH ×3 (05:09→17:43)
[2019-02-12] MEDS: ONDANSETRON 4 MG/2 ML VIAL IV PRN ×2 (05:28→14:19)
[2019-02-12 06:06] LABS: Phosphorus 3.2 mg/dL (2.5-4.9); Potassium 4.4 mmol/L (3.5-5.1)
[2019-02-12] MEDS: D5.45NS W/KCL 20MEQ 20 MEQ/1,000 ML BAG IV SCH ×2 (06:41→11:09)
[2019-02-12] MEDS: ENOXAPARIN 40 MG/0.4 ML SQ SCH (09:07)
--- NOTE | 2019-02-12 09:13 | RAD REPORT ---
EXAM DESCRIPTION: RAD - Abdomen W Erect - 02/12/2019 8:50 am CLINICAL HISTORY: SBO Pain COMPARISON: Abdomen W Erect dated 02/11/2019 FINDINGS: Multiple dilated small bowel loops are present in the central abdomen. This appears slight ly more prominent than on the comparative study. Enteric tube descends into the stomach. No pneumoper itoneum.
--- NOTE | 2019-02-12 16:26 | PN ---
Date of Progress Note: 02/12/2019 Subjective: Patient is awake and alert. He was passing a little bit of gas yesterday, but none toda y. He did admit that he had some cough yesterday and his x-rays today looked a little bit worse, but his pain is much better. Objective: Vital Signs: Stable. Afebrile. Abdomen: Soft, nondistended, nontender. No peritonitis. Assessment: Small-bowel obstruction. Recommendations: I advised the patient if he does not follow clinical recommendations, I cannot help the patient and he should seek care elsewhere or with another surgeon. He has decided to follow ins tructions at this point. We will keep him n.p.o., NG tube, IV antibiotics, IV fluids. We will repea t the x-ray tomorrow morning if he remains n.p.o. and he improves fine. If not, he will need a small bowel series. If he does need surgical intervention, he will need a tertiary care facility as he is a very complicated case. WILFRID/MARTINEZ Voice ID: [id number] Report ID: [id number]
--- NOTE | 2019-02-12 17:14 | PN ---
Date of Progress Note: 02/12/2019 Subjective: Patient seen and examined. Chart reviewed and case discussed with RN and Dr. Rowe. Inderjit cortez apparently was found drinking coffee by the nurses station despite being n.p.o. and being cauti oned regarding being n.p.o. Patient was counseled again, understands that if he starts taking food a nd liquids while in obstruction, he may perforate his colon, which can lead to morbidity and mortalit y, require emergent surgery, which the patient voiced understanding. Medications: List reviewed. Physical Examination: Vital Signs: Temperature 97, heart rate 67, blood pressure 111/56, respirations 18, O2 96% on room a ir. General: Awake, alert, oriented x3. Morbidly obese male. Does not appear to be in any acute distre ss. CV: S1, S2. Regular rate and rhythm. Peripheral pulses present. Respiratory: Moving air well bilaterally. No wheezing. Gastrointestinal: Soft, minimally distended. Hypoactive bowel sounds. No guarding or rigidity. Ve ntral hernia present. Extremities: No clubbing or cyanosis. Patient has chronic venous stasis changes and edema of the lo wer extremities. Skin: Right lower extremity wound is dressed. No bleeding. Clean dry intact. Neurologic: Nonfocal. Laboratory Data: Sodium 139, potassium 4.4, chloride 106, CO2 of 32, BUN 6, creatinine 0.94, glucose 98, calcium 8.7, phosphorus 3.2, magnesium 2. Abdominal x-ray personally reviewed, shows multiple d ilated small bowel loops in the central abdomen, appears slightly more prominent than on the comparat garrick study. Enteric tube distends into the stomach. No pneumoperitoneum. Assessment: 43-year-old male with; 1.Small bowel obstruction, recurrent. Continue with conservative approach with NG tube decompressio n. Abdominal x-ray is slightly worsened today; however, patient is passing gas. Patient as stated parris calle was taking liquids. He has been counseled extensively. He understands that eating or drinking anything during obstruction may cause bowel perforation leading to sepsis, bacteremia, and possibly e crystal . He voiced understanding. 2.Abdominal wall hernia without obstruction or gangrene, stable. 3.Abdominal pain secondary to above, improving. 4.Morbid obesity, BMI 41. 5.Noncompliance. 6.Venous stasis dermatitis of the lower extremities. Continue with compression. 7.Gastroesophageal reflux disease without esophagitis, stable. 8.Obstructive sleep apnea, on CPAP. 9.Right lower extremity venous lesion with stitches and Surgicel in place. Continue with dressing c hanges. Plan: Continue conservative treatment. Repeat abdominal x-ray in a.m. If patient's condition worse ns or fails conservative treatment, Surgery recommended transfer to higher level of care due to his c omplicated abdominal anatomy and need for abdominal wall reconstruction. /MARTINEZ Voice ID: [id number] Report ID: [id number]
[2019-02-13] MEDS: D5.45NS W/KCL 20MEQ 20 MEQ/1,000 ML BAG IV SCH ×3 (01:03→22:49)
[2019-02-13] MEDS: METRONIDAZOLE 500mg IVPB 500 MG/100 ML BAG IV SCH ×5 (01:03→23:53)
[2019-02-13] MEDS: Levofloxacin500mg IV 500 MG/100 ML BAG IV SCH (02:30)
[2019-02-13] MEDS: MINERAL OIL 30 ML UCUP PO SCH ×3 (05:45→23:53)
[2019-02-13] MEDS: HYDROMORPHONE HCL 1 MG/ML INJ IV PRN ×3 (05:57→20:57)
[2019-02-13 06:46] LABS: Absolute Lymphocytes (CBC) 0.6 K/uL (0.7-4.9); Basophils % 0.3 % (0-1.3); Lymphocytes % 13.6 % (15.3-44.8); MPV 7.9 fL (7.6-11.3); RBC Red Blood Cell Count 4.46 M/uL (4.33-5.43)
[2019-02-13 06:59] LABS: BUN Blood Urea Nitrogen 6 mg/dL (7-18); Bicarbonate 28 mmol/L (21-32); Glucose Level 95 mg/dL (74-106); Magnesium 1.8 mg/dL (1.8-2.4); Potassium 3.9 mmol/L (3.5-5.1); Sodium Level 139 mmol/L (136-145)
[2019-02-13] MEDS: ENOXAPARIN 40 MG/0.4 ML SQ SCH (08:40)
--- NOTE | 2019-02-13 08:42 | RAD REPORT ---
EXAM DESCRIPTION: RAD - Abdomen W Erect - 02/13/2019 8:06 am CLINICAL HISTORY: Abdominal pain FINDINGS: A nasogastric tube present within the stomach. Air-fluid levels within the bowel are diminished. The bowel caliber has diminished. This is compatibl e with improvement Free air is not seen beneath the diaphragm
[2019-02-13] MEDS ORDERED: MAGNESIUM SULFATE 1 gm IVPB 1 GM/100 ML BAG IV ONE (09:00)
--- NOTE | 2019-02-13 15:11 | PN ---
Date of Progress Note: 02/13/2019 Subjective: Patient is awake and alert, no pain, is passing a lot more gas and no bowel movement. V ital signs stable. Afebrile. Abdominal x-ray shows improvement in the caliber of the small bowel. Assessment: Partial small-bowel obstruction, improving. Recommendations: We will clamp the NG tube. Start patient on clear liquids. Patient doing well. /MODL Voice ID: [id number] Report ID: [id number]
--- NOTE | 2019-02-13 18:24 | PN ---
Date of Progress Note: 02/13/2019 Subjective: Patient seen and examined. Chart reviewed and case discussed with RN and Dr. Rowe. Inderjit cortez continues to have significant flatus and however, no bowel movement; is ambulating. Patient perdue s been compliant and did not have any further p.o. intake as recommended. Medications: Medication list reviewed. Physical Examination: Vital Signs: Temperature 97.4, heart rate 71, blood pressure 139/77, respirations 16, O2 99% on room air. General: Awake, alert, oriented x3. Morbidly obese male in some mild distress. CV: S1, S2. Regular rate and rhythm. Peripheral pulses present. Respiratory: Moving air well bilaterally. No wheezing or stridor. Gastrointestinal: Abdomen is soft. Minimal distention. Hypoactive bowel sounds. No rebound or gua rding. Ventral hernia present. Extremities: No clubbing or cyanosis. Patient has chronic venous stasis changes. Neurologic: Nonfocal. Laboratory Data: Sodium 139, potassium 3.9, chloride 107, CO2 28, BUN 6, creatinine 0.66, glucose 95 , calcium 8.7, magnesium 1.8. WBC 4.4, H and H 10.8 and 33, platelets 213, neutrophils 73%. Imaging: Patient abdominal x-ray personally reviewed, shows NG tube in place. Air-fluid levels with in the bowel are diminished. Bowel caliber has diminished, compatible with improvement. No free air underneath the diaphragm. Assessment And Plan: 43-year-old male with: 1.Small-bowel obstruction, recurrent improvement. Patient is passing gas. We will clamp NG tube an d start on clear liquid diet. Case discussed with Dr. Rowe. No surgical intervention at this time. 2.Abdominal wall hernia without obstruction or gangrene, stable. 3.Abdominal pain secondary to above, improving. 4.Morbid obesity. BMI 41. 5.Noncompliance, counseled. 6.Venous stasis dermatitis, lower extremities. Continue with compression. 7.Gastroesophageal reflux disease without esophagitis, stable. 8.Obstructive sleep apnea, on CPAP. 9.Right lower extremity venous lesions with stitches and Surgicel. Continue with dressing changes. Plan, likely discharge in the next 24 hours if continues to improve. SA/MODL Voice ID: [id number] Report ID: [id number]
[2019-02-13] MEDS: ACETAMINOPHEN 500 MG TAB PO PRN (20:57)
[2019-02-13] MEDS: ONDANSETRON 4 MG/2 ML VIAL IV PRN (20:57)
[2019-02-14] MEDS: Levofloxacin500mg IV 500 MG/100 ML BAG IV SCH (02:05)
[2019-02-14] MEDS: HYDROMORPHONE HCL 1 MG/ML INJ IV PRN ×2 (02:06→11:38)
[2019-02-14] MEDS: MINERAL OIL 30 ML UCUP PO SCH ×2 (06:00→14:00)
[2019-02-14 06:10] LABS: BUN Blood Urea Nitrogen 7 mg/dL (7-18); Bicarbonate 31 mmol/L (21-32); Glucose Level 92 mg/dL (74-106); Magnesium 1.9 mg/dL (1.8-2.4); Phosphorus 3.4 mg/dL (2.5-4.9); Potassium 4.2 mmol/L (3.5-5.1); Sodium Level 141 mmol/L (136-145)
[2019-02-14] MEDS: METRONIDAZOLE 500mg IVPB 500 MG/100 ML BAG IV SCH ×2 (07:41→11:39)
[2019-02-14] MEDS: ENOXAPARIN 40 MG/0.4 ML SQ SCH (09:24)
[2019-02-14] MEDS: ACETAMINOPHEN 500 MG TAB PO PRN (09:24)
[2019-02-14 13:19] VITALS: BP 132/74; TEMP 98
[2019-02-14 14:36] VITALS: O2SAT 99
--- NOTE | 2019-02-14 18:06 | PN ---
Date of Progress Note: 02/14/2019 Subjective: Patient is awake, alert. He said that the NG tube fell out. He did have a bowel moveme nt today. He is tolerating his clear liquids. Residual was minimal. Objective: Vital Signs: Stable. Afebrile. Abdomen: Benign Laboratory Data: Reviewed. Essentially unremarkable. Assessment: Small bowel obstruction, resolved. Recommendation: Advance diet and if tolerated, may be discharged. Patient was advice for small freq uent meals, eat food that are easy to digest and avoid binge eating, also he needs to follow up herni a center in [place] for repair of his multiple hernias. Reconsult leonel YUEN/MARTINEZ Voice ID: [id number] Report ID: [id number]
--- NOTE | 2019-02-15 03:07 | DS ---
Date of Discharge: 02/14/2019 Consultants: Dr. Rowe with General Surgery. Admitting Diagnoses: 1.Small bowel obstruction, recurrent. 2.Abdominal hernia without obstruction or gangrene. 3.Abdominal pain. 4.Morbid obesity, BMI 41. 5.Venous stasis dermatitis of both lower extremities. 6.Gastroesophageal reflux disease without esophagitis. 7.Obstructive sleep apnea. Discharge Diagnoses: 1.Small bowel obstruction, recurrent, resolved. 2.Abdominal hernia without obstruction or gangrene, stable. 3.Abdominal pain secondary to above, generalized, improving. 4.Morbid obesity, BMI 41. 5.Noncompliance, counseled. 6.Venous stasis dermatitis bilateral lower extremities. 7.Gastroesophageal reflux disease without esophagitis, stable. 8.Obstructive sleep apnea, on CPAP. 9.Right lower extremity venous lesion with stitches and Surgicel. Continue with dressing changes an d follow up in wound care to have stitches removed. Hospital Course: Patient is a 43-year-old male with past medical history of recurrent small bowel ob structions. Patient has had multiple episodes of obstruction and has been admitted several times for similar issues. His last surgery was done at [facility] and he does not have much of an abd ominal wall and cannot tolerate further surgery without reconstruction of his abdominal wall. Patien t had NG tube placed and he was put on strict n.p.o.; however, the patient was noncompliant and drank coffee and other liquids and was counseled extensively. He understands that he has recurrent small- bowel obstruction. He does not have much of an abdominal wall and will need reconstruction if he gerald r does end up needing surgery. He understood that drinking and eating with small bowel obstruction c an lead to bowel perforation, which would lead to likely bacteremias, peritonitis, sepsis and even de ath. He voiced understanding. Patient then was able to ambulate. Mineral oil was placed down the N G tube since surgery was consulted. Patient was seen by Dr. Rowe. Repeat abdominal x-rays were don e, which showed improvement after initial deterioration when patient had p.o. intake. Patient was th en able to pass gas and he had a bowel movement. The patient yanked out his own NG tube without tell ing anyone. Patient continues to be noncompliant. He was strongly recommended to eat small meals mo re frequently rather than large meals. He will also need to be on a full liquid diet for the next se veral weeks. He needs to follow up with a hernia center in [place]. Patient has been noncompliant w ith followup in the past as well. He will also need [facility] his [facility] removed or to return to ER. He needs to establish care with the primary care physician . Return to ER for worsening condition. Diet: [place]. Activity: As tolerated. Medications: As per medication reconciliation list. Physical Examination: General: Awake, alert, oriented x3. Morbidly obese male. CV: S1, S2. Respiratory: Moving air well bilaterally. Abdomen: Abdomen is soft, nontender, nondistended. Positive bowel sounds. Hernia present. Extremities: No clubbing, cyanosis. Bilateral lower extremity edema. Skin: Chronic venous stasis, dermatitis. Neurologic: Nonfocal. Total time spent discharging the patient was 42 minutes. YASMEEN Voice ID: [id number] Report ID: [id number]
--- OUTSIDE RECORDS SUMMARY | 2019-02-23 12:35 | XMS REPORT ---
:1975 [facility] Address [address] [place] [address] Dr. Marie [address] [place] [address] Care Team Providers Name Role Phone Unavailable Unavailable Unavailable Problems This patient has no known problems. Allergies, Adverse Reactions, Alerts This patient has no known allergies or adverse reactions. Medications This patient has no known medications.
== END 2019-02-14 16:12 | disposition home or self-care (01) | DRG 389 ==
LOC: ER 20:48 → ERHOLD 02-10 01:44 → 4TH 02-10 02:14
PROVIDERS: ADMIT Hospitalist; ATTEND Hospitalist
DX: K56.609 Unspecified intestinal obstruction, unspecified as to partial versus complete obstruction (principal); Z68.41 Body mass index [BMI] 40.0-44.9, adult; K46.9 Unspecified abdominal hernia without obstruction or gangrene; E66.9 Obesity, unspecified; I87.2 Venous insufficiency (chronic) (peripheral); K21.9 Gastro-esophageal reflux disease without esophagitis; G47.33 Obstructive sleep apnea (adult) (pediatric); Z91.19 Patient's noncompliance with other medical treatment and regimen
CPT/HCPCS: 36415; 74018; 74019; 74022; 74177; 80048; 80053; 80076; 83690; 83735; 84100; 85025; 85610; 85730; 96374; 96375; 99251; 99285; J0744; J1170; J1650; J2405; J3475; J7030; Q9967

== ENCOUNTER 2019-04-29 04:14 | Emergency (ER) | payer OTHER ==
--- OUTSIDE RECORDS SUMMARY | 2019-04-29 04:17 | XMS REPORT ---
:1975 [facility] [address] [place] [address] Dr. Marie [address] [place] [address] Care Team Providers Name Role Phone Unavailable Unavailable Unavailable Problems This patient has no known problems. Allergies, Adverse Reactions, Alerts This patient has no known allergies or adverse reactions. Medications This patient has no known medications.
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
[2019-04-29] MEDS ORDERED: CLINDAMYCIN IV 150 MG/ML (4 mL) VIAL ONE (05:01)
[2019-04-29 05:28] VITALS: BP 179/100; TEMP 98.4; O2SAT 98
== END 2019-04-29 05:21 | disposition home or self-care (01) ==
LOC: ER 04:14
DX: L03.115 Cellulitis of right lower limb (principal); L03.125 Acute lymphangitis of right lower limb; I10 Essential (primary) hypertension; F17.210 Nicotine dependence, cigarettes, uncomplicated; Z91.018 Allergy to other foods
CPT/HCPCS: 96372; 99283; S0077

== ENCOUNTER 2019-08-15 11:15 | Emergency (ER) | payer OTHER ==
--- OUTSIDE RECORDS SUMMARY | 2019-08-15 11:16 | XMS REPORT ---
:1975 Author Organization [facility] t Address [address] Marie [address] [place] [address] Care Team Providers Name Role Phone Unavailable Unavailable Unavailable Problems This patient has no known problems. Allergies, Adverse Reactions, Alerts This patient has no known allergies or adverse reactions. Medications This patient has no known medications.
[2019-08-15] MEDS ORDERED: MORPHINE 4 MG/ML SYR ONE (11:54)
[2019-08-15] MEDS ORDERED: NA CHLORIDE 0.9% 1,000 ML ONE (11:54)
[2019-08-15] MEDS ORDERED: ONDANSETRON 4 MG/2 ML VIAL ONE (11:54)
[2019-08-15 11:57] LABS: Absolute Lymphocytes (CBC) 0.7 K/uL (0.7-4.9); Basophils % 0.4 % (0-1.3); Hematocrit 38.3 % (39.6-49.0); Lymphocytes % 9.5 % (15.3-44.8); MPV 7.9 fL (7.6-11.3); RBC Red Blood Cell Count 5.05 M/uL (4.33-5.43)
[2019-08-15 12:14] LABS: Albumin 3.3 g/dL (3.4-5.0); Bilirubin Direct 0.2 mg/dL (0-0.2); Bilirubin Total 0.6 mg/dL (0.2-1.0); Protein, Total 8.5 g/dL (6.4-8.2)
--- NOTE | 2019-08-15 12:50 | RAD REPORT ---
EXAM DESCRIPTION: CTAbdomen Pelvis W Contrast - 08/15/2019 12:29 pm CLINICAL HISTORY: Abdominal pain. ABD PAIN COMPARISON: Abdomen Pelvis W Contrast dated 02/09/2019; Abdomen Pelvis W Contrast dated 11/21/2018 ; Abdomen Pelvis W Contrast dated 03/14/2017; Abdomen Pelvis W Contrast dated 02/18/2016 TECHNIQUE: Biphasic CT imaging of the abdomen and pelvis was performed with 100 ml non-ionic IV cont rast. All CT scans are performed using dose optimization technique as appropriate and may include automated exposure control or mA/KV adjustment according to patient size. FINDINGS: Mild linear subsegmental atelectasis is present in the right lung base. Mild fatty liver is seen. No focal liver mass or biliary dilatation. The spleen is mildly prominent i n size. The pancreas, adrenal glands and kidneys show no acute process. Postsurgical clips are presen t about the abdominal aorta. Multiple dilated small bowel loops are present in the central abdomen compatible with a mechanical sm all-bowel obstruction. Significant laxity of the anterior abdominal wall is seen with right flank her srikanth again noted containing unobstructed large bowel. Within the large pannus, a focal hernia is prese nt along the inferior margin of panniculus containing short loop of small bowel. Small left paracentr al and right paracentral fat partial bowel containing ventral hernias are also seen. The appendix is normal. No evidence of significant lymphadenopathy. No free air or free fluid. No intra-abdominal ab scess. No suspicious bony findings. IMPRESSION: Moderately severe mechanical small-bowel obstruction is present.
--- NOTE | 2019-08-15 14:13 | RAD REPORT ---
EXAM DESCRIPTION: RAD - Chest Single View - 08/15/2019 2:05 pm CLINICAL HISTORY: NG tube placement Chest pain. COMPARISON: Abdomen Acute Series dated 02/10/2019; Abdomen 1 View (KUB) dated 02/10/2019; Abdomen 1 View (KUB) dated 11/21/2018; Chest Single View dated 09/16/2018 FINDINGS: Portable technique limits examination quality. Tip of the NG tube is in the stomach.
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
[2019-08-15] MEDS ORDERED: CIPROFLOXACIN 400mg IV 400 MG/200 ML BAG IV ONE (14:42)
[2019-08-15] MEDS ORDERED: METRONIDAZOLE 500mg IVPB 500 MG/100 ML BAG IV ONE (14:42)
[2019-08-15] MEDS ORDERED: MORPHINE 2 MG/ML SYR ONE (18:34)
[2019-08-15 19:18] VITALS: TEMP 98.4
[2019-08-15 19:24] VITALS: BP 124/73; O2SAT 99
== END 2019-08-15 19:12 | disposition short-term general hospital (02) ==
LOC: ER 11:15 → ERHOLD 14:29 → UNDOADMIN 14:29 → ER 19:12
DX: K56.609 Unspecified intestinal obstruction, unspecified as to partial versus complete obstruction (principal); I10 Essential (primary) hypertension; Z91.018 Allergy to other foods
CPT/HCPCS: 85025; 80048; 36415; 80076; 83690; 74177; 71045; Q9967; J2270; J7030; J2405; J0744; 96361; 96365; 96366; 96375; 99285

== ENCOUNTER 2020-02-24 18:59 | Inpatient (IN) | payer OTHER ==
--- OUTSIDE RECORDS SUMMARY | 2020-02-24 19:01 | XMS REPORT | Clinical Summary ---
:1975 Author Organization [facility] Address [address] [place] [address] Care Team Providers Name Role Phone Unavailable Primary Care Provider Unavailable Allergies No Known Allergies Medications Medication Sig Dispensed Refills Start Date End Date Status petrolatum-mineral Apply 1 application 456 g 0 08/18/2019 Active oil Oint topical topically as needed ointment (as needed for leg dryness). Active Problems Problem Noted Date Small bowel obstruction 08/15/2019 Encounters Date Type Specialty Care Team Description 08/15/2019 - Hospital Encounter General Internal Adio, Sylvia Sma ll bowel 08/18/2019 Medicine MD Ti obstruction (HCC) Roxy Alas (Primary Dx ) MD Napoleon Chambers, Yevgeniy Ellis MD 08/15/2019 Travel after 02/23/2019 Social History Tobacco Use Types Packs/Day Years Used Date Never Assessed Sex Assigned at Date Recorded Not on file Last Filed Vital Signs Vital Sign Reading Time Taken Comments Blood Pressure 136/89 08/18/2019 8:24 AM CDT Pulse 77 08/18/2019 8:24 AM CDT Temperature 36.7 C (98 F) 08/18/2019 8:24 AM CDT Respiratory Rate 18 08/18/2019 8:24 AM CDT Oxygen Saturation 97% 08/18/2019 8:24 AM CDT Inhaled Oxygen Concentration - - Weight 131.3 kg (289 lb 8 oz) 08/15/2019 8:49 PM CDT Height 180.3 cm (5' 11") 08/15/2019 8:49 PM CDT Body Mass Index 40.38 08/15/2019 8:49 PM CDT Plan of Treatment Health Maintenance Due Date Last Done Comments LIPID PANEL 09/02/2011 Medicare IPPE (WELCOME TO MEDICARE) 04/16/2019 INFLUENZA VACCINE (#1) 2019 Procedures Procedure Name Priority Date/Time Associated Comments Diagnosis CBC W/PLT COUNT & Routine 08/18/2019 4:04 Result s for this AUTO DIFFERENTIAL AM CDT procedure are in the results section. PHOSPHORUS Routine 08/18/2019 4:04 Results for this AM CDT procedure are i n the results section. MAGNESIUM Routine 08/18/2019 4:04 Results for this AM CDT procedure are i n the results section. CBC W/PLT COUNT & Routine 08/18/2019 4:04 Result s for this AUTO DIFFERENTIAL AM CDT procedure are in the results section. BASIC METABOLIC PANEL Routine 08/18/2019 4:04 Re sults for this (7) AM CDT procedure are i n the results section. POCT-GLUCOSE METER Routine 08/17/2019 6:44 Resul ts for this AM CDT procedure are i n the results section. CBC W/PLT COUNT & Routine 08/17/2019 4:23 Result s for this AUTO DIFFERENTIAL AM CDT procedure are in the results section. PHOSPHORUS Routine 08/17/2019 4:23 Results for this AM CDT procedure are i n the results section. MAGNESIUM Routine 08/17/2019 4:23 Results for this AM CDT procedure are i n the results section. CBC W/PLT COUNT & Routine 08/17/2019 4:23 Result s for this AUTO DIFFERENTIAL AM CDT procedure are in the results section. BASIC METABOLIC PANEL Routine 08/17/2019 4:23 Re sults for this (7) AM CDT procedure are i n the results section. BASIC METABOLIC PANEL Routine 08/16/2019 10:27 Re sults for this (7) AM CDT procedure are i n the results section. CBC W/PLT COUNT & Routine 08/16/2019 4:50 Result s for this AUTO DIFFERENTIAL AM CDT procedure are in the results section. CBC W/PLT COUNT & Routine 08/16/2019 4:50 Result s for this AUTO DIFFERENTIAL AM CDT procedure are in the results section. PROTHROMBIN TIME/INR Routine 08/16/2019 4:50 Res ults for this AM CDT procedure are i n the results section. LACTIC ACID, VENOUS STAT 08/15/2019 11:31 Resu lts for this PM CDT procedure are i n the results section. PROTHROMBIN TIME/INR STAT 08/15/2019 11:31 Res ults for this PM CDT procedure are i n the results section. BASIC METABOLIC PANEL STAT 08/15/2019 11:31 Re sults for this (7) PM CDT procedure are i n the results section. CBC (HEMOGRAM ONLY) STAT 08/15/2019 11:31 Resu lts for this PM CDT procedure are i n the results section. after 02/23/2019 Results CBC with platelet count + automated diff (08/18/2019 4:04 AM CDT)Only the most recent of3 resultswithin the time period is included. Pathologist Sig nature WBC 4.1 3.5 - 10.5 [facility] K/[facility] RBC 4.58 (L) 4.63 - 6.08 [facility] M/L [facility] Hemoglobin 11.4 (L) 13.7 - 17.5 [facility] GM/DL [facility] Hematocrit 36.2 (L) 40.1 - 51.0 % [facility] MCV 79.0 79.0 - 92.2 fL [facility] MCH 24.9 (L) 25.7 - 32.2 pg [facility] MCHC 31.5 (L) 32.3 - 36.5 [facility] GM/DL [facility] RDW 18.5 (H) 11.6 - 14.4 % [facility] Platelets 198 150 - 450 K/CU [facility] MPV 9.8 9.4 - 12.4 fL [facility] nRBC 0 0 - 0 /100 WBC [facility] % Neutros 57 % [facility] % Lymphs 27 % [facility] % Monos 10 % [facility] % Eos 4 % [facility] % Baso 1 % [facility] # Neutros 2.33 1.78 - 5.38 [facility] # Lymphs 1.11 (L) 1.32 - 3.57 [facility] K/L [facility] # Monos 0.41 0.30 - 0.82 [facility] K/L [facility] # Eos 0.18 0.04 - 0.54 [facility] K/L [facility] # Baso 0.04 0.01 - 0.08 [facility] K/L [facility] Immature 0 0 - 1 % [facility] Granulocytes-Relative [facility] Specimen Blood Performing Organization Address City/[facility]/Zipcode Phone Number [address] [address] CENTER Phosphorus (08/18/2019 4:04 AM CDT)Only the most recent of2 resultswithin the time period is included. Pathologist Sig nature Phosphorus 3.7 2.3 - 4.7 mg/dL [facility] Specimen Blood Narrative Performed At Drama Critic ID - PIAYA L [facility] ICAL CENTER Performing Organization Address City/[facility]/Zipcode Phone Number [address] [address] CENTER Magnesium (08/18/2019 4:04 AM CDT)Only the most recent of2 resultswithin the time period is included. Pathologist Sig nature Magnesium 1.7 1.6 - 2.6 mg/dL [facility] Specimen Blood Narrative Performed At Drama Critic ID - PIAYA L [facility] ICAL CENTER Performing Organization Address City/State/Zipcode Phone Number [facility] [address] [place] [phone] CENTER Basic metabolic panel (08/18/2019 4:04 AM CDT)Only the most recent of4 results within the time period is included. Sodium 140 136 - 145 meq/L [facility] Potassium 4.2 3.5 - 5.1 meq/L [facility] Chloride 105 98 - 107 meq/L [facility] CO2 30 (H) 22 - 29 meq/L [facility] BUN 7 7 - 21 mg/dL [facility] Creatinine 0.84 0.57 - 1.25 [facility] mg/dL [facility] Glucose 88 70 - 105 mg/dL [facility] Calcium 8.8 8.4 - 10.2 [facility] mg/dL [facility] EGFR 100Comment: mL/min/1.73 sq [facility] ESTIMATED GFR IS NOT [facility] ACCURATE [place] CREATININE CLEARANCE IN PREDICTING GLOMERULAR FILTRATION RATE. ESTIMATED GFR IS NOT APPLICABLE FOR DIALYSIS PATIENTS. Specimen Blood Narrative Performed At Drama Critic ID - PIAYA L [facility] ICAL CENTER Performing Organization Address City/State/Zipcode Phone Number [address] [address] [place] POC-Glucose meter (08/17/2019 6:44 AM CDT) POC-Glucose Meter 98Comment: : 70 - 110 mg/dL [facility] TESTED AT [address], [id number]: Drama Critic/Technic jeff ID = [id number] for SOTERO MARQUEZ Specimen Blood Performing Organization Address City/State/Zipcode Phone Number [address] [phone] [place] Prothrombin time/INR (08/16/2019 4:50 AM CDT)Only the most recent of2 results within the time period is included. Pathologist Sig nature Protime 14.5 (H) 11.9 - 14.2 seconds [facility] INR 1.2 <=5.9 [facility] Specimen Blood Narrative Performed At Effective 09/11/2018: PT Reference Range [facility] Change New: 11.9-14.2 Previous: 11.7-14.7 RECOMMENDED COUMADIN/WARFARIN INR THERAPY RANGES STANDARD DOSE: 2.0-3.0 Includes: PROPHYLAXIS for venous thrombosis, systemic embolization; TREATMENT for venous thrombosis and/or pulmonary embolus. HIGH RISK: Target INR is 2.5-3.5 for patients wiht mechanical heart valves. Performing Organization Address City/State/Zipcode Phone Number [facility] [address] [place] [address] CENTER Lactic acid, venous (08/15/2019 11:31 PM CDT) Pathologist Sig nature Lactate, Venous 0.58 0.50 - 2.20 mmol/L [facility] Specimen Blood Narrative Performed At Drama Critic ARSEN Phillips [facility] ICAL CENTER Performing Organization Address City/State/Zipcode Phone Number [address] [address] CENTER CBC (Hemogram only) (08/15/2019 11:31 PM CDT) Pathologist Sig nature WBC 5.4 3.5 - 10.5 K/L [facility] RBC 4.44 (L) 4.63 - 6.08 M/L [facility] Hemoglobin 11.1 (L) 13.7 - 17.5 GM/DL [facility] Hematocrit 35.2 (L) 40.1 - 51.0 % [facility] MCV 79.3 79.0 - 92.2 fL [facility] MCH 25.0 (L) 25.7 - 32.2 pg [facility] MCHC 31.5 (L) 32.3 - 36.5 GM/DL [facility] RDW 19.0 (H) 11.6 - 14.4 % [facility] Platelets 195 150 - 450 K/CU MM [facility] MPV 9.7 9.4 - 12.4 fL [facility] nRBC 0 0 - 0 /100 WBC [facility] Specimen Blood Performing Organization Address City/State/Zipcode Phone Number [facility] [address] [place] [address] CENTER after 02/23/2019 Insurance Payer Benefit Plan / Subscriber ID Effective Dates Phone Addre ss Type Group [facility] [id number] 2019-Present MEDICARE MGD CARE HMO Advance Directives For more information, please contact: [phone] Code Status Date Activated Date Inactivated Comments Full Code 08/15/2019 8:32 PM 08/18/2019 12:28 PM This code status was determined by: Patient
--- OUTSIDE RECORDS SUMMARY | 2020-02-24 19:01 | XMS REPORT | Clinical Summary ---
:1975 Author Organization [facility] Address [address] [place] [id number] Care Team Providers Name Role Phone Asked, Given Primary Care Provider Unavailable Allergies No Known Active Allergies Medications Medication Sig Dispensed Refills Start Date End Date Status aspirin (ECOTRIN) 81 MG Take 81 mg by 0 Active enteric coated tablet mouth daily. docusate sodium Take 100 mg by 0 Active (COLACE) 100 MG capsule mouth 2 (two) times a day. lisinopril Take 20 mg by 0 Activ e (PRINIVIL,ZESTRIL) 20 mouth daily. MG tablet Active Problems Not on file Surgical History Surgery Date Site/Laterality Comments APPENDECTOMY ABDOMINAL SURGERY HERNIA REPAIR GALLBLADDER SURGERY Medical History Medical History Date Comments Cancer (HCC) testicular Hiatal hernia Hypertension Hyperlipemia Social History Tobacco Use Types Packs/Day Years Used Date Never Smoker Smokeless Tobacco: Never Used Tobacco Cessation: Counseling Given: No Alcohol Use Drinks/Week oz/Week Comments No Sex Assigned at Date Recorded Not on file Last Filed Vital Signs Not on file Plan of Treatment Not on file Results Not on fileafter 02/23/2019 Insurance Payer Benefit Plan / Subscriber ID Effective Dates Phone Addre ss Type Group MEDICARE MEDICARE PART A [id number] 2012-Present BRENDA Hare [place] Medicare AND B Advance Directives For more information, please contact: [phone] Type Date 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
--- OUTSIDE RECORDS SUMMARY | 2020-02-24 19:02 | XMS REPORT | Continuity of Care Document ---
:1975 Author Organization [facility] t Address [address] [place] [address] Care Team Providers Name Role Phone Asked, Given Primary Care Physician Unavailable Ti Ramirez MD Attending Clinician Trish Alas MD Attending Clinician Rhonda Bender MD Attending Clinician Ti RAMIREZ Attending Clinician Unavailable Shasha Buckley MD Attending Clinician TRISH ALAS Admitting Clinician Unavailable Payers Payer Name Policy Type Policy Effective Date Expiration Date Sour ce Number [facility] [id number] [facility] - MEDICARE MGD 00:00:00 - [facility] MEDICARE [id number]/04/17 020-Present Problems Condition Condition Condition Status Onset Resolution Last Treating Co mments Source Name Details Category Date Date Treatment Clinician Date Small Small Disease Active [facility] bowel bowel 08-14 [facility] - obstructio obstructio 00:00: Me dical n n 00 Center Allergies, Adverse Reactions, Alerts This patient has no known allergies or adverse reactions. Social History Social Habit Start Date Stop Date Quantity Comments Source Sex Assigned At [facility] Tobacco use and 2015-09-05 2015-09-05 Never used [facility] exposure 00:00:00 00:00:00 Alcohol intake 2015-09-05 2015-09-05 Current [facility] 00:00:00 00:00:00 non-drinker of alcohol (finding) Smoking Status Start Date Stop Date Source Never smoker [facility] t Medications Ordered Filled Start Stop Current Ordering Indication Dosage Frequency Signature Comments Components Source Medication Medication Date Date Medication? Clinician (SIG) Name Name petryangtmaddy- Yes 1{appli Apply 1 [facility] mineral oil 5-04 cation} applicatio [facility] - Oint 00:00: n Medical topical 00 topically [place] ointment as needed (as needed for leg dryness). aspirin Yes 81mg QD Take 81 mg [place] (ECOTRIN) 5-22 by mouth Method i 81 MG 17:28: daily. st enteric 03 coated tablet docusate Yes 100mg Q.5D Take 100 [place] sodium 5-22 mg by Methodi (COLACE) 17:28: mouth 2 st 100 MG 03 (two) capsule times a day. lisinopril Yes 20mg QD Take 20 mg [place] (PRINIVIL,Z 5-22 by mouth Meth mary kate ESTRIL) 20 17:28: daily. st MG tablet 03 Vital Signs Vital Name Observation Time Observation Value Comments Source Systolic blood 2019-08-18 08:24:00 136 mm[Hg] [facility] Diastolic blood 2019-08-18 08:24:00 89 mm[Hg] [facility] S t [facility] Heart rate 2019-08-18 08:24:00 77 /min [facility] Body temperature 2019-08-18 08:24:00 36.67 [place] [facility] Respiratory rate 2019-08-18 08:24:00 18 /min [facility] Oxygen saturation in 2019-08-18 08:24:00 97 /min [facility] Arterial blood by Medical Ce nter Pulse oximetry Body height 2019-08-15 20:49:00 180.3 cm [facility] Body weight 2019-08-15 20:49:00 131.316 kg [facility] BMI 2019-08-15 20:49:00 40.38 kg/m2 [facility] Procedures Procedure Date / Time Performed Performing Clinician Dl francisco BASIC METABOLIC PANEL 2019-08-18 04:04:[address] MAGNESIUM 2019-08-18 04:04:00 Roxy Alas [facility] PHOSPHORUS 2019-08-18 04:04:00 Evette Roxyher Chambers [facility] CBC W/PLT COUNT & AUTO 2019-08-18 04:04:00 Roxy Alas [facility] POCT-GLUCOSE METER 2019-08-17 06:44:00 Roxy Alas [facility] BASIC METABOLIC PANEL 2019-08-17 04:23:[address] MAGNESIUM 2019-08-17 04:23:00 Roxy Alas [facility] PHOSPHORUS 2019-08-17 04:23:00 Evette Roxy [facility] CBC W/PLT COUNT & AUTO 2019-08-17 04:23:[facility] BASIC METABOLIC PANEL 2019-08-16 10:27:[address] PROTHROMBIN TIME/INR 2019-08-16 04:50:00 Arden [facility] CBC W/PLT COUNT & AUTO 2019-08-16 04:50:00 [facility] CBC (HEMOGRAM ONLY) 2019-08-15 23:31:[facility]OLIC PANEL 2019-08-15 23:31:[address] PROTHROMBIN TIME/INR 2019-08-15 23:31:00 [facility] LACTIC ACID, VENOUS 2019-08-15 23:31:00 [facility] Planned Activity Planned Date Details Comments Source Future Scheduled 2019-12-[address] [facility] 00:00:00 (#1) [code = [facility] INFLUENZA VACCINE (#1)] Future Scheduled 2019-04-[address] [address] [facility] Test 00:00:00 (WELCOME TO [facility] MEDICARE) [code = Medicare IPPE (WELCOME TO MEDICARE)] Future Scheduled 2011-09-[address] [facility] - Test 00:00:00 (procedure) [code = [facility] 07958426] Encounters Start End Encounter Admission Attending Care Care Encounter Source Date/Time Date/Time Type Type Clinicians Facility Department ID 2018-12-23 2018-12-24 [facility] [id number] 23:17:13 00:07:00 Chong [place]al [id number] [place] [id number] [place] [id number] Results Test Description Test Time Test Comments Results Result Comments Source Basic metabolic panel 2019-08-18 04:42:00 Test Item Value Reference Range Interpretation Comme nts Sodium (test code = 140 meq/L 183-289 1670-2) Potassium (test code = 4.2 meq/L 3.5-5.1 2823-3) Chloride (test code = 105 meq/L 98-107 2075-0) CO2 (test code = 8-9) 30 meq/L 22-29 H BUN (test code = 3094-0) 7 mg/dL 7-21 Creatinine (test code = 0.84 mg/dL 0.57-1.25 2160-0) Glucose (test code = 88 mg/dL 70-105 2345-7) Calcium (test code = 8.8 mg/dL 8.4-10.2 37474-5) EGFR (test code = 27047-5) 100 mL/min/1.73 sq m ESTIMATED GFR IS NOT ACCURATE CREATININE RSUS MADI IN PREDICTING GLOMERULAR FILT RATION RATE. ESTIMATED GFR IS NOT APPLICAB LE FOR DIALYSIS PATIEN TS. YELENA (test code = YELENA) Welding Instructor ID - PIAYA L Lab Interpretation (test Abnormal code = 16565-7) [facility]00 Test Item Value Reference Range Interpretation Comments Magnesium (test code = 1.7 mg/dL 1.6-2.6 50053-0) YELENA (test code = YELENA) Welding Instructor ID Moisés ROBLES L Lab Interpretation (test Normal code = 47058-2) [facility] 04:42:00 Test Item Value Reference Range Interpretation Comments Phosphorus (test code = 3.7 mg/dL 2.3-4.7 2777-1) YELENA (test code = YELENA) Welding Instructor ID Moisés ROBLES L Lab Interpretation (test Normal code = 95099-7) [facility] 04:42:00 Test Item Value Reference Range Interpretation Comments PHOSPHORUS (BEAKER) (test code = 3.7 mg/dL 2.3-4.7 604) Welding Instructor ID Moisés ROBLES [id number] 04:42:00 Test Item Value Reference Range Interpretation Comments MAGNESIUM (BEAKER) (test code = 1.7 mg/dL 1.6-2.6 627) Welding Instructor ID Moisés ROBLES LBASIC METABOLIC [id number] 04:42:00 Test Item Value Reference Range Interpretation Comments SODIUM (BEAKER) 140 meq/L 136-145 (test code = 381) POTASSIUM (BEAKER) 4.2 meq/L 3.5-5.1 (test code = 379) CHLORIDE (BEAKER) 105 meq/L 98-107 (test code = 382) CO2 (BEAKER) (test 30 meq/L 22-29 H code = 355) BLOOD UREA NITROGEN 7 mg/dL 7-21 (BEAKER) (test code = 354) CREATININE (BEAKER) 0.84 mg/dL 0.57-1.25 (test code = 358) GLUCOSE RANDOM 88 mg/dL 70-105 (BEAKER) (test code = 652) CALCIUM (BEAKER) 8.8 mg/dL 8.4-10.2 (test code = 697) EGFR (BEAKER) (test 100 mL/min/1.73 ESTIM ATED GFR IS code = 1092) sq m NOT ACCURATE CREATININE CLEARANCE IN PREDICTING GLOMERULAR FILTRATION RATE . ESTIMATED GFR I S NOT APPLICABLE FOR DIALYSIS PATIEN TS. Welding Instructor ID - MARGARET LCBC with platelet count + automated [id number] 04:28:00 Test Item Value Reference Range Interpretation Comments WBC (test code = 6690-2) 4.1 3.5- 10.5 K/L RBC (test code = 789-8) 4.58 4.63- 6.08 M/L L MCHC (test code = 786-4) 31.5 32.3- 36.5 GM/DL L Hematocrit (test code = 4544-3) 36.2 % 40.1-51 L MCV (test code = 787-2) 79.0 fL 79-92.2 MCH (test code = 785-6) 24.9 pg 25.7-32.2 L RDW (test code = 788-0) 18.5 % 11.6-14.4 H Platelets (test code = 777-3) 198 150- 450 K/CU MM MPV (test code = 13187-4) 9.8 fL 9.4-12.4 nRBC (test code = 413) 0 0- 0 /100 WBC % Neutros (test code = 429) 57 % % Lymphs (test code = 430) 27 % % Monos (test code = 431) 10 % % Eos (test code = 432) 4 % % Baso (test code = 437) 1 % # Neutros (test code = 670) 2.33 1.78- 5.38 K/L # Lymphs (test code = 414) 1.11 1.32- 3.57 K/L L # Monos (test code = 415) 0.41 0.30- 0.82 K/L # Eos (test code = 416) 0.18 0.04- 0.54 K/L # Baso (test code = 417) 0.04 0.01- 0.08 K/L Immature Granulocytes-Relative 0 % 0-1 (test code = 2801) Lab Interpretation (test code = Abnormal 89001-5) [facility] W/PLT COUNT & AUTO [id number] 04:28:00 Test Item Value Reference Range Interpretation Comments WHITE BLOOD CELL COUNT (BEAKER) 4.1 K/ L 3.5-10.5 (test code = 775) RED BLOOD CELL COUNT (BEAKER) 4.58 M/ L 4.63-6.08 L (test code = 761) HEMOGLOBIN (BEAKER) (test code = 11.4 GM/DL 13.7-17.5 L 410) HEMATOCRIT (BEAKER) (test code = 36.2 % 40.1-51.0 L 411) MEAN CORPUSCULAR VOLUME (BEAKER) 79.0 fL 79.0-92.2 (test code = 753) MEAN CORPUSCULAR HEMOGLOBIN 24.9 pg 25.7-32.2 L (BEAKER) (test code = 751) MEAN CORPUSCULAR HEMOGLOBIN CONC 31.5 GM/DL 32.3-36.5 L (BEAKER) (test code = 752) RED CELL DISTRIBUTION WIDTH 18.5 % 11.6-14.4 H (BEAKER) (test code = 412) PLATELET COUNT (BEAKER) (test 198 K/CU MM 150-450 code = 756) MEAN PLATELET VOLUME (BEAKER) 9.8 fL 9.4-12.4 (test code = 754) NUCLEATED RED BLOOD CELLS 0 /100 WBC 0-0 (BEAKER) (test code = 413) NEUTROPHILS RELATIVE PERCENT 57 % (BEAKER) (test code = 429) LYMPHOCYTES RELATIVE PERCENT 27 % (BEAKER) (test code = 430) MONOCYTES RELATIVE PERCENT 10 % (BEAKER) (test code = 431) EOSINOPHILS RELATIVE PERCENT 4 % (BEAKER) (test code = 432) BASOPHILS RELATIVE PERCENT 1 % (BEAKER) (test code = 437) NEUTROPHILS ABSOLUTE COUNT 2.33 K/ L 1.78-5.38 (BEAKER) (test code = 670) LYMPHOCYTES ABSOLUTE COUNT 1.11 K/ L 1.32-3.57 L (BEAKER) (test code = 414) MONOCYTES ABSOLUTE COUNT (BEAKER) 0.41 K/ L 0.30-0.82 (test code = 415) EOSINOPHILS ABSOLUTE COUNT 0.18 K/ L 0.04-0.54 (BEAKER) (test code = 416) BASOPHILS ABSOLUTE COUNT (BEAKER) 0.04 K/ L 0.01-0.08 (test code = 417) IMMATURE GRANULOCYTES-RELATIVE 0 % 0-1 PERCENT (BEAKER) (test code = 2801) POC-Glucose [id number] 06:56:00 Test Item Value Reference Range Interpretation Comments POC-Glucose Meter (test 98 mg/dL 70-110 : TE STED AT [facility] code = 1538) [address] [place], [address]: Welding Instructor/Techni sherri ID = [id number] for SOTERO MARQUEZ Lab Interpretation (test Normal code = 31944-0) [facility] [id number] 06:56:00 Test Item Value Reference Range Interpretation Comments POC-GLUCOSE METER 98 mg/dL 70-110 : TESTED A T [facility] 6720 (BEAKER) (test code = [facility] [address]: Welding Instructor/Techni sherri ID = [id number] for SOTERO HAYES [id number] 04:58:00 Test Item Value Reference Range Interpretation Comments PHOSPHORUS (BEAKER) (test code = 3.2 mg/dL 2.3-4.7 604) Welding Instructor ID - SONAL [id number] 04:58:00 Test Item Value Reference Range Interpretation Comments MAGNESIUM (BEAKER) (test code = 1.8 mg/dL 1.6-2.6 627) Welding Instructor ID - SONAL WBASIC METABOLIC [id number] 04:58:00 Test Item Value Reference Range Interpretation Comments SODIUM (BEAKER) 142 meq/L 136-145 (test code = 381) POTASSIUM (BEAKER) 3.7 meq/L 3.5-5.1 (test code = 379) CHLORIDE (BEAKER) 107 meq/L 98-107 (test code = 382) CO2 (BEAKER) (test 27 meq/L 22-29 code = 355) BLOOD UREA NITROGEN 8 mg/dL 7-21 (BEAKER) (test code = 354) CREATININE (BEAKER) 0.77 mg/dL 0.57-1.25 (test code = 358) GLUCOSE RANDOM 65 mg/dL 70-105 L (BEAKER) (test code = 652) CALCIUM (BEAKER) 8.9 mg/dL 8.4-10.2 (test code = 697) EGFR (BEAKER) (test 111 mL/min/1.73 ESTIM ATED GFR IS code = 1092) sq m NOT ACCURATE CREATININE CLEARANCE IN PREDICTING GLOMERULAR FILTRATION RATE . ESTIMATED GFR I S NOT APPLICABLE FOR DIALYSIS PATIEN TS. Welding Instructor ID - SONAL WCBC W/PLT COUNT & AUTO [id number] 04:35:00 Test Item Value Reference Range Interpretation Comments WHITE BLOOD CELL COUNT (BEAKER) 3.9 K/ L 3.5-10.5 (test code = 775) RED BLOOD CELL COUNT (BEAKER) 4.53 M/ L 4.63-6.08 L (test code = 761) HEMOGLOBIN (BEAKER) (test code = 11.3 GM/DL 13.7-17.5 L 410) HEMATOCRIT (BEAKER) (test code = 36.5 % 40.1-51.0 L 411) MEAN CORPUSCULAR VOLUME (BEAKER) 80.6 fL 79.0-92.2 (test code = 753) MEAN CORPUSCULAR HEMOGLOBIN 24.9 pg 25.7-32.2 L (BEAKER) (test code = 751) MEAN CORPUSCULAR HEMOGLOBIN CONC 31.0 GM/DL 32.3-36.5 L (BEAKER) (test code = 752) RED CELL DISTRIBUTION WIDTH 18.7 % 11.6-14.4 H (BEAKER) (test code = 412) PLATELET COUNT (BEAKER) (test 170 K/CU MM 150-450 code = 756) MEAN PLATELET VOLUME (BEAKER) 9.6 fL 9.4-12.4 (test code = 754) NUCLEATED RED BLOOD CELLS 0 /100 WBC 0-0 (BEAKER) (test code = 413) NEUTROPHILS RELATIVE PERCENT 66 % (BEAKER) (test code = 429) LYMPHOCYTES RELATIVE PERCENT 21 % (BEAKER) (test code = 430) MONOCYTES RELATIVE PERCENT 8 % (BEAKER) (test code = 431) EOSINOPHILS RELATIVE PERCENT 3 % (BEAKER) (test code = 432) BASOPHILS RELATIVE PERCENT 1 % (BEAKER) (test code = 437) NEUTROPHILS ABSOLUTE COUNT 2.60 K/ L 1.78-5.38 (BEAKER) (test code = 670) LYMPHOCYTES ABSOLUTE COUNT 0.83 K/ L 1.32-3.57 L (BEAKER) (test code = 414) MONOCYTES ABSOLUTE COUNT (BEAKER) 0.31 K/ L 0.30-0.82 (test code = 415) EOSINOPHILS ABSOLUTE COUNT 0.13 K/ L 0.04-0.54 (BEAKER) (test code = 416) BASOPHILS ABSOLUTE COUNT (BEAKER) 0.04 K/ L 0.01-0.08 (test code = 417) IMMATURE GRANULOCYTES-RELATIVE 0 % 0-1 PERCENT (BEAKER) (test code = 2801) BASIC METABOLIC [id number] 11:27:00 Test Item Value Reference Range Interpretation Comments SODIUM (BEAKER) 138 meq/L 136-145 (test code = 381) POTASSIUM (BEAKER) 4.2 meq/L 3.5-5.1 Specimen slightly (test code = 379) hemolyzed CHLORIDE (BEAKER) 109 meq/L 98-107 H (test code = 382) CO2 (BEAKER) (test 22 meq/L 22-29 code = 355) BLOOD UREA NITROGEN 8 mg/dL 7-21 (BEAKER) (test code = 354) CREATININE (BEAKER) 0.75 mg/dL 0.57-1.25 Specimen slightly (test code = 358) hemolyzed GLUCOSE RANDOM 77 mg/dL 70-105 (BEAKER) (test code = 652) CALCIUM (BEAKER) 8.3 mg/dL 8.4-10.2 L (test code = 697) EGFR (BEAKER) (test 114 mL/min/1.73 ESTIM ATED GFR IS code = 1092) sq m NOT ACCURATE CREATININE CLEARANCE IN PREDICTING GLOMERULAR FILTRATION RATE . ESTIMATED GFR I S NOT APPLICABLE FOR DIALYSIS PATIEN TS. Welding Instructor ID - MICAH WProthrombin time/[id number] 05:26:00 Test Item Value Reference Range Interpretation Comments Protime (test code = 14.5 11.9- 14.2 H 5902-2) seconds INR (test code = 1.2 <=5.9 6301-6) YELENA (test code = YELENA) Effective 09/11/2018: PT Reference Range ChangeNew: 11.9-14.2 Previous: 11.7-14.7 RECOMMENDED COUMADIN/WARFARIN INR THERAPY RANGESSTANDARD DOSE: 2.0-3.0 Includes: PROPHYLAXIS for venous thrombosis, systemic embolization; TREATMENT for venous thrombosis and/or pulmonary embolus.HIGH RISK: Target INR is 2.5-3.5 for patients wiht mechanical heart valves. Lab Interpretation Abnormal (test code = 75399-8) [facility]/[id number] 05:26:00 Test Item Value Reference Range Interpretation Comments PROTIME (BEAKER) (test code = 14.5 seconds 11.9-14.2 H 759) INR (BEAKER) (test code = 370) 1.2 <=5.9 Effective 09/11/2018: PT Reference Range ChangeNew: 11.9-14.2 Previous: 11.7- 14.7RECOMMENDED COUMADIN/WARFARIN INR THERAPY RANGESSTANDARD DOSE: 2.0-3.0 Includes: PROPHYLAXIS for venous thrombosis, systemic embolization; TREATMENT for venous thrombosis and/or pulmonary embolus.HIGH RISK: Target INR is2.5-3.5 for patients wiht mechanical heart valves.CBC W/PLT COUNT & AUTO [id number] 05:04:00 Test Item Value Reference Range Interpretation Comments WHITE BLOOD CELL COUNT (BEAKER) 3.8 K/ L 3.5-10.5 (test code = 775) RED BLOOD CELL COUNT (BEAKER) 4.44 M/ L 4.63-6.08 L (test code = 761) HEMOGLOBIN (BEAKER) (test code = 11.0 GM/DL 13.7-17.5 L 410) HEMATOCRIT (BEAKER) (test code = 35.0 % 40.1-51.0 L 411) MEAN CORPUSCULAR VOLUME (BEAKER) 78.8 fL 79.0-92.2 L (test code = 753) MEAN CORPUSCULAR HEMOGLOBIN 24.8 pg 25.7-32.2 L (BEAKER) (test code = 751) MEAN CORPUSCULAR HEMOGLOBIN CONC 31.4 GM/DL 32.3-36.5 L (BEAKER) (test code = 752) RED CELL DISTRIBUTION WIDTH 19.0 % 11.6-14.4 H (BEAKER) (test code = 412) PLATELET COUNT (BEAKER) (test 178 K/CU MM 150-450 code = 756) MEAN PLATELET VOLUME (BEAKER) 9.5 fL 9.4-12.4 (test code = 754) NUCLEATED RED BLOOD CELLS 0 /100 WBC 0-0 (BEAKER) (test code = 413) NEUTROPHILS RELATIVE PERCENT 59 % (BEAKER) (test code = 429) LYMPHOCYTES RELATIVE PERCENT 26 % (BEAKER) (test code = 430) MONOCYTES RELATIVE PERCENT 11 % (BEAKER) (test code = 431) EOSINOPHILS RELATIVE PERCENT 3 % (BEAKER) (test code = 432) BASOPHILS RELATIVE PERCENT 1 % (BEAKER) (test code = 437) NEUTROPHILS ABSOLUTE COUNT 2.25 K/ L 1.78-5.38 (BEAKER) (test code = 670) LYMPHOCYTES ABSOLUTE COUNT 1.00 K/ L 1.32-3.57 L (BEAKER) (test code = 414) MONOCYTES ABSOLUTE COUNT (BEAKER) 0.43 K/ L 0.30-0.82 (test code = 415) EOSINOPHILS ABSOLUTE COUNT 0.12 K/ L 0.04-0.54 (BEAKER) (test code = 416) BASOPHILS ABSOLUTE COUNT (BEAKER) 0.03 K/ L 0.01-0.08 (test code = 417) IMMATURE GRANULOCYTES-RELATIVE 0 % 0-1 PERCENT (BEAKER) (test code = 2801) BASIC METABOLIC [id number] 00:05:00 Test Item Value Reference Range Interpretation Comments SODIUM (BEAKER) 136 meq/L 136-145 (test code = 381) POTASSIUM (BEAKER) 3.6 meq/L 3.5-5.1 (test code = 379) CHLORIDE (BEAKER) 106 meq/L 98-107 (test code = 382) CO2 (BEAKER) (test 22 meq/L 22-29 code = 355) BLOOD UREA NITROGEN 9 mg/dL 7-21 (BEAKER) (test code = 354) CREATININE (BEAKER) 0.76 mg/dL 0.57-1.25 (test code = 358) GLUCOSE RANDOM 85 mg/dL 70-105 (BEAKER) (test code = 652) CALCIUM (BEAKER) 8.2 mg/dL 8.4-10.2 L (test code = 697) EGFR (BEAKER) (test 112 mL/min/1.73 ESTIM ATED GFR IS code = 1092) sq m NOT ACCURATE CREATININE CLEARANCE IN PREDICTING GLOMERULAR FILTRATION RATE . ESTIMATED GFR I S NOT APPLICABLE FOR DIALYSIS PATIEN TS. Welding Instructor ID - PIAYA LPROTHROMBIN TIME/[id number] 23:57:00 Test Item Value Reference Range Interpretation Comments PROTIME (BEAKER) (test code = 14.0 seconds 11.9-14.2 759) INR (BEAKER) (test code = 370) 1.1 <=5.9 Effective 09/11/2018: PT Reference Range ChangeNew: 11.9-14.2 Previous: 11.7- 14.7RECOMMENDED COUMADIN/WARFARIN INR THERAPY RANGESSTANDARD DOSE: 2.0-3.0 Includes: PROPHYLAXIS for venous thrombosis, systemic embolization; TREATMENT for venous thrombosis and/or pulmonary embolus.HIGH RISK: Target INR is2.5-3.5 for patients wiht mechanical heart valves.Lactic acid, [id number] 23:56:00 Test Item Value Reference Range Interpretation Comments Lactate, Venous (test code 0.58 mmol/L 0.5-2.2 = 2872) YELENA (test code = YELENA) Welding Instructor ID - PIAYA L Lab Interpretation (test Normal code = 36405-5) [facility], [id number] 23:56:00 Test Item Value Reference Range Interpretation Comments LACTATE BLOOD VENOUS (2) (BEAKER) 0.58 mmol/L 0.50-2.20 (test code = 2872) Welding Instructor ID - PIAYA LCBC (Hemogram only)2019-08-15 23:43:00 Test Item Value Reference Range Interpretation Comments WBC (test code = 6690-2) 5.4 3.5- 10.5 K/L RBC (test code = 789-8) 4.44 4.63- 6.08 M/L L MCHC (test code = 786-4) 31.5 32.3- 36.5 GM/DL L Hematocrit (test code = 4544-3) 35.2 % 40.1-51 L MCV (test code = 787-2) 79.3 fL 79-92.2 MCH (test code = 785-6) 25.0 pg 25.7-32.2 L RDW (test code = 788-0) 19.0 % 11.6-14.4 H Platelets (test code = 777-3) 195 150- 450 K/CU MM MPV (test code = 79916-3) 9.7 fL 9.4-12.4 nRBC (test code = 413) 0 0- 0 /100 WBC Lab Interpretation (test code = Abnormal 23053-8) [facility]2019-08-15 23:43:00 Test Item Value Reference Range Interpretation Comments WHITE BLOOD CELL COUNT (BEAKER) 5.4 K/ L 3.5-10.5 (test code = 775) RED BLOOD CELL COUNT (BEAKER) 4.44 M/ L 4.63-6.08 L (test code = 761) HEMOGLOBIN (BEAKER) (test code = 11.1 GM/DL 13.7-17.5 L 410) HEMATOCRIT (BEAKER) (test code = 35.2 % 40.1-51.0 L 411) MEAN CORPUSCULAR VOLUME (BEAKER) 79.3 fL 79.0-92.2 (test code = 753) MEAN CORPUSCULAR HEMOGLOBIN 25.0 pg 25.7-32.2 L (BEAKER) (test code = 751) MEAN CORPUSCULAR HEMOGLOBIN CONC 31.5 GM/DL 32.3-36.5 L (BEAKER) (test code = 752) RED CELL DISTRIBUTION WIDTH 19.0 % 11.6-14.4 H (BEAKER) (test code = 412) PLATELET COUNT (BEAKER) (test 195 K/CU MM 150-450 code = 756) MEAN PLATELET VOLUME (BEAKER) 9.7 fL 9.4-12.4 (test code = 754) NUCLEATED RED BLOOD CELLS 0 /100 WBC 0-0 (BEAKER) (test code = 413)
[2020-02-24] MEDS ORDERED: MEPERIDINE HCL 25 MG/ML SYR ONE (19:29)
[2020-02-24] MEDS ORDERED: ONDANSETRON 4 MG/2 ML VIAL ONE (19:29)
[2020-02-24] MEDS ORDERED: NA CHLORIDE 0.9% 500 ML ONE (19:29)
[2020-02-24] MEDS ORDERED: DIPHENHYDRAMINE 50 MG/ML VIAL ONE (19:53)
[2020-02-24 20:00] LABS: Basophils % 0.3 % (0-1.3); Hematocrit 40.8 % (39.6-49.0); Lymphocytes % 12.2 % (15.3-44.8); MPV 7.9 fL (7.6-11.3); RBC Red Blood Cell Count 5.29 M/uL (4.33-5.43)
[2020-02-24 20:17] LABS: Albumin 3.6 g/dL (3.4-5.0); Bilirubin Direct 0.1 mg/dL (0-0.2); Bilirubin Total 0.5 mg/dL (0.2-1.0); Potassium 3.9 mmol/L (3.5-5.1); Protein, Total 8.6 g/dL (6.4-8.2)
--- NOTE | 2020-02-24 21:07 | RAD REPORT ---
EXAM DESCRIPTION: CT - Abdomen Pelvis W Contrast - 02/24/2020 8:44 pm CLINICAL HISTORY: Abdominal pain COMPARISON: August 2019 TECHNIQUE: Computed axial tomography of the abdomen pelvis was obtained. 100 cc Isovue-300 was admin istered intravenously. Oral contrast was not requested which limits evaluation of bowel. All CT scans are performed using dose optimization technique as appropriate and may include automated exposure control or mA/KV adjustment according to patient size. FINDINGS: The liver, spleen, pancreas, adrenal and kidneys appear unremarkable. The proximal jejunum is normal caliber. The mid and distal jejunum is dilated. A loop of jejunum sebastien ures 8 centimeters. Most of ileum and colon are decompressed. There are multiple ventral hernias. A right anterolateral hernia is present above the level of the il iac crests. A left ventral hernia within the lower pelvis contains dilated small bowel. Most of the o ther hernias contain bowel as well. No free air. No abscess. Postsurgical changes involve the abdomen IMPRESSION: Dilatation of the mid and distal jejunum may represent a closed loop mechanical obstruct ion. A loop of jejunum is markedly dilated measuring 8 centimeters
[2020-02-24] MEDS ORDERED: CEFTRIAXONE/SWI 1gm 1 GM/10 ML SYR ONE (21:50)
[2020-02-24] MEDS ORDERED: METRONIDAZOLE 500mg IVPB 500 MG/100 ML BAG IV ONE (21:50)
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
[2020-02-24] MEDS ORDERED: MORPHINE 4 MG/ML SYR ONE (22:07)
[2020-02-25] MEDS: D5 0.45 NS 1,000 ML IV SCH ×3 (00:54→17:24)
[2020-02-25] MEDS: MORPHINE 4 MG/ML SYR IV PRN ×6 (00:58→21:43)
[2020-02-25] MEDS ORDERED: CEFOXITIN/SWI 1gm 1 GM/10 ML SYR ONE (01:34)
[2020-02-25] MEDS: WATER FOR INJ,STERILE 10 ML IV SCH ×2 (02:01→06:12)
[2020-02-25] MEDS: CEFOXITIN SODIUM 1 GM/VIAL IV SCH ×2 (02:01→06:12)
[2020-02-25 04:23] LABS: Absolute Lymphocytes (CBC) 0.8 K/uL (0.7-4.9); Basophils % 0.4 % (0-1.3); Hematocrit 41.6 % (39.6-49.0); Lymphocytes % 11.5 % (15.3-44.8); MPV 7.8 fL (7.6-11.3); RBC Red Blood Cell Count 5.32 M/uL (4.33-5.43)
[2020-02-25 04:45] LABS: Albumin 3.4 g/dL (3.4-5.0); Bilirubin Direct 0.2 mg/dL (0-0.2); Bilirubin Total 0.6 mg/dL (0.2-1.0); Potassium 4.8 mmol/L (3.5-5.1); Protein, Total 8.3 g/dL (6.4-8.2)
[2020-02-25] MEDS: METRONIDAZOLE 500mg IVPB 500 MG/100 ML BAG IV SCH ×2 (05:26→17:38)
[2020-02-25] MEDS ORDERED: CEFOXITIN SODIUM 1 GM/VIAL IVPB SCH (06:00)
[2020-02-25] MEDS ORDERED: INFLUENZA VACCINE (for 3y+) 0.5 ML DOSE IMVAC ONE (09:00)
[2020-02-25] MEDS: ONDANSETRON 4 MG/2 ML VIAL IV PRN ×2 (09:39→21:43)
[2020-02-25] MEDS ORDERED: MINERAL OIL 30 ML UCUP PO ONE (12:40)
--- NOTE | 2020-02-25 13:14 | P.CNS ---
Date of Consult: 02/25/20 Reason for Consult: Medical Management-HTN Requesting Physician: Jose Rincon Primary Care Provider: Dr. Johns Chief Complaint: Abdominal pain, nausea vomiting History of Present Illness: 44-year-old male presented to the emergency room with abdominal pain, nausea and vomiting. Patient found to have mechanical small bowel loop obstruction. Patient with history of recurrent obstruction. I was asked to see the patient for medical management related to his hypertension. Blood pressures have been elevated. Patient currently NPO at this time. NG tube in place. Pain has significantly improved. Patient without significant nausea vomiting at this time. Pressure record reviewed. Patient reports no history of hypertension. Patient has venous insufficiency to the lower extremities. Patient is obese with a BMI 44. Allergies cabbage Allergy (Verified 02/10/19 02:54) Nausea/Vomiting No Known Drug Allergies Allergy (Verified 02/25/20 00:20) Unknown spinach Allergy (Verified 09/13/18 18:08) Nausea/Vomiting Home medications list reviewed: Yes Home Medications: NK [No Home Meds] 11/21/18 - Past Medical/Surgical History Diabetic: No -: History of testicular cancer -: History of small bowel obstruction -: History of multiple abdominal surgeries -: Large abdominal hernias -: Likely underlying obstructive sleep apnea -: Morbid obesity -: Varicose veins -: GERD -: Venous stasis with insufficiency of the lower extremity -: Lymphedema to the lower extremity -: Hypertension -: Appendectomy -: Cholecystectomy -: Bowel repair secondary to bowel perforation -: Hernia mesh repair Psychosocial/ Personal History: The patient is single. He has 2 children. He is currently disabled. - Family History Father Medical History: Heart disease - Social History Smoking Status: Current every day smoker Alcohol use: No CD- Drugs: No Caffeine use: No Place of Residence: Home Review of Systems General: As per HPI Eyes: Unremarkable ENT: Unremarkable Respiratory: Unremarkable Cardiovascular: Unremarkable Gastrointestinal: Nausea, Vomiting, Abdominal Pain, As per HPI Genitourinary: Unremarkable Musculoskeletal: Pedal edema, As per HPI Integumentary: As per HPI Neurological: Unremarkable Lymphatics: Unremarkable Physical Examination Temp Pulse Resp BP Pulse Ox 97.7 F 79 18 158/100 H 96 02/25/20 08:00 02/25/20 08:00 02/25/20 10:08 02/25/20 11:40 02/25/20 10:08 General: Alert, In no apparent distress, Oriented x3, Cooperative HEENT: Atraumatic, Normocephalic, Mucous membr. moist/pink Neck: Supple Respiratory: Clear to auscultation bilaterally, Normal air movement Cardiovascular: Normal pulses, Regular rate/rhythm Gastrointestinal: Hypoactive, Other (Multiple scars to the abdomen. Patient is obese. Multiple ventral hernias as noted. Pain with deep palpation. Large pannus noted.) Integumentary: No warmth, No cyanosis, Other (Lower extremity venous insufficiency noted bilateral) Neurological: Normal speech, Normal strength at 5/5 x4 extr, Normal tone, Normal affect Laboratory Data (last 24 hrs) 02/24/20 19:30: WBC 8.5, Hgb 13.9, Hct 40.8, Plt Count 221 02/24/20 19:30: Sodium 138, Potassium 3.9, BUN 19 H, Creatinine 1.01, Glucose 99, Total Bilirubin 0.5, AST 12 L, ALT 23, Alkaline Phosphatase 99, Lipase 65 L Conclusions/Impression: Impression: Nausea, vomiting, abdominal pain secondary to mechanical small bowel obstruction with history of bowel obstruction complicated with multiple ventral hernias Hypertension Venous insufficiency to the lower extremities Suspect underlying obstructive sleep apnea Obesity, BMI 44 Plan: Nausea, vomiting, abdominal pain secondary to mechanical small bowel obstruction with history of bowel obstruction complicated with multiple ventral hernias: Patient remains NPO at this time. Continue NG tube. Continue IV antibiotic therapy and IV fluids. Encourage ambulation. Will provide incentive spirometer. Patient without significant bowel movement or passage of gas. Pain well controlled. Will continue current management. Agree with surgical plan of care. Will follow along with surgery. Hypertension: Blood pressure elevated at this time. Will start IV hydralazine. Will monitor closely. Patient will likely require medication at discharge. 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 Patient now with venous insufficiency. Will continue DVT prophylaxis. Suspect underlying obstructive sleep apnea: Patient should get sleep study as an outpatient to further evaluate Obesity, BMI 44: Will address lifestyle modification education. Time Spent Managing Pts care (In Minutes): 55
[2020-02-25] MEDS: HYDRALAZINE HCL 20 MG/ML VIAL IV PRN (13:41)
[2020-02-25] MEDS: CEFOXITIN/SWI 1gm 1 GM/10 ML SYR IVP SCH ×2 (13:42→17:31)
--- NOTE | 2020-02-25 15:22 | P.HP ---
Date of Service: 02/25/20 PC: This 44-year-old male presents emergency room with severe abdominal pain for diagnosis and treatment. HPC: This patient, had sudden onset of abdominal pain. Located in the lower portion of his abdomen. He has had previous episodes of partial small-bowel obstruction due to as many abdominal wall hernias. PMH: Morbid obesity, chronic pain, PSHx: Ruptured appendix, bowel resection, previous abdominal wall hernia is, attempted repair of abdominal wall hernias. SOC: No known drug allergies SYS REVIEW: States he has been in relatively good health O/E awake alert uncomfortable HEENT: Within normal limits Chest: Chest movement equal bilaterally ABD: Soft nontender to palpate. Abdominal hernias are all soft. LOCO: Intact DATA: CT scan suggests possible partial bowel obstruction IMPRESSION: Partial bowel obstruction PLAN: This patient is response quite well to IV fluids, low intermittent suction, and judicious use of mineral oil, and his problem resolves. He occasionally has a little dietary indiscretion and eats food look too much fiber resulting in these episodes. Also occurs when he forgets to drink liquids. We will give him some mineral oil today, have him up ambulating, ran reassess in the a.m.. He understands and wants to proceed in this manner.
[2020-02-25] MEDS ORDERED: METOPROLOL TARTRATE 5 MG/5 ML INJ IV PRN (17:41)
--- NOTE | 2020-02-25 18:05 | EKG ---
Test Date: 2020-02-24 Test Time: 19:27:02 Head Cook: SUSHANT MEASUREMENT RESULTS: Intervals: Rate: 92 ID: [id number] QRSD: 100 QT: 336 QTc: 415 [place]: P: 42 ID: [id number] QRS: 85 T: 58 INTERPRETIVE STATEMENTS: Normal sinus rhythm Normal ECG Compared to ECG 09/10/2018 04:45:29 Sinus tachycardia no longer present Electronically Signed On 02-25-20 18:02:46 TRACK HOE OPERATOR by Thom Andrade
[2020-02-26] MEDS: D5 0.45 NS 1,000 ML IV SCH ×4 (00:26→20:42)
[2020-02-26] MEDS: CEFOXITIN/SWI 1gm 1 GM/10 ML SYR IVP SCH ×5 (00:57→23:16)
[2020-02-26] MEDS: METRONIDAZOLE 500mg IVPB 500 MG/100 ML BAG IV SCH ×2 (00:58→09:01)
[2020-02-26] MEDS: MORPHINE 4 MG/ML SYR IV PRN ×4 (02:08→20:42)
--- NOTE | 2020-02-26 08:41 | RAD REPORT ---
EXAM DESCRIPTION: RAD - Abdomen 1 View (KUB) - 02/26/2020 8:15 am CLINICAL HISTORY: fu sbo Pain COMPARISON: Abdomen 1 View (KUB) dated 02/10/2019; Abdomen 1 View (KUB) dated 11/21/2018; Abdomen Pe lvis W Contrast dated 02/24/2020 FINDINGS: Multiple dilated bowel loops are again seen in the abdomen. No real change is seen in the degree bowel distention since the comparative study. The dilatation of the bowel is relatively poorly organized except for a prominent C-shaped loop in the lower abdomen. NG tube has its tip in the stomach. No pneumoperitoneum seen. Postsurgical clips are seen projecting over the midline. IMPRESSION: No significant change is seen in the bowel gas pattern since comparative CT dated 2019.
--- NOTE | 2020-02-26 09:50 | P.PN ---
Subjective Date of Service: 02/26/20 Primary Care Provider: Dr. Johns Chief Complaint: Abdominal pain, nausea vomiting Subjective: Other (Stable. No BM or passage of gas.) Physical Examination - Vital Signs Temperature: 97.4 F Blood Pressure: 194/89 Pulse: 82 Respirations: 18 Pulse Ox (%): 96 - Physical Exam General: Alert, In no apparent distress, Oriented x3, Cooperative HEENT: Atraumatic Neck: Supple Respiratory: Clear to auscultation bilaterally, Normal air movement Cardiovascular: Normal pulses, Regular rate/rhythm Gastrointestinal: Hypoactive, Tenderness (still with pain but improved. ) Integumentary: No erythema, No warmth, No cyanosis, Other (chronic venous insufficiency noted) Neurological: Normal speech, Normal strength at 5/5 x4 extr, Normal tone - Studies Medications List Reviewed: Yes Assessment & Plan Discharge Plan: Home Plan to discharge in: 72 Hours Physician Review Additional Text: Impression: Nausea, vomiting, abdominal pain secondary to mechanical small bowel obstruction with history of bowel obstruction complicated with multiple ventral hernias Hypertension Venous insufficiency to the lower extremities Suspect underlying obstructive sleep apnea Obesity, BMI 44 Plan: Nausea, vomiting, abdominal pain secondary to mechanical small bowel obstruction with history of bowel obstruction complicated with multiple ventral hernias: Patient remains NPO at this time. Continue NG tube. Continue IV antibiotic therapy and IV fluids. Encourage ambulation. Will provide incentive spirometer. Will check KUB. Will discuss with Surgery about plan of care. May need surgery if no improvement. Hypertension: Blood pressure elevated at this time. Will start IV medication and provide as needed. Will monitor closely. Patient will likely require medication at discharge. 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 Patient now with venous insufficiency. Will continue DVT prophylaxis. Suspect underlying obstructive sleep apnea: Patient should get sleep study as an outpatient to further evaluate Obesity, BMI 44: Will address lifestyle modification education. Time Spent Managing Pts Care (In Minutes): 55
--- NOTE | 2020-02-26 11:50 | P.PN ---
Date of Service: 02/26/20 S: Patient states he feels slightly better today, feels like the gas and fluid is moving down. Has been up walking. O: Vital signs are stable, A: Partial small-bowel obstruction appears to be resolving P: Continue current therapy.
[2020-02-26] MEDS: HYDRALAZINE HCL 20 MG/ML VIAL IV PRN (12:14)
[2020-02-26] MEDS: MINERAL OIL 30 ML UCUP FT ONE (12:16)
[2020-02-26] MEDS: ONDANSETRON 4 MG/2 ML VIAL IV PRN (20:48)
[2020-02-27] MEDS: D5 0.45 NS 1,000 ML IV SCH ×4 (00:26→19:16)
[2020-02-27] MEDS: MORPHINE 4 MG/ML SYR IV PRN ×3 (01:24→18:24)
[2020-02-27 02:16] VITALS: BMI 44.3
[2020-02-27] MEDS: CEFOXITIN/SWI 1gm 1 GM/10 ML SYR IVP SCH ×3 (06:05→19:16)
--- NOTE | 2020-02-27 09:23 | P.PN ---
Subjective Date of Service: 02/27/20 Primary Care Provider: Dr. Johns Chief Complaint: Abdominal pain, nausea vomiting Subjective: Improving (Patient reports passage of gas. Pain improved.) Physical Examination - Vital Signs Temperature: 97.8 F Blood Pressure: 142/81 Pulse: 70 Respirations: 19 Pulse Ox (%): 96 - Physical Exam General: Alert, In no apparent distress, Oriented x3, Cooperative HEENT: Atraumatic Neck: Supple Respiratory: Clear to auscultation bilaterally, Normal air movement Cardiovascular: Normal pulses, Regular rate/rhythm Gastrointestinal: Hypoactive, Non-distended, Tenderness (Pain to the abdomen improved) Neurological: Normal speech, Normal strength at 5/5 x4 extr, Normal tone, Normal affect - Studies Medications List Reviewed: Yes Assessment & Plan Discharge Plan: Home Plan to discharge in: 48 Hours Physician Review Additional Text: Impression: Nausea, vomiting, abdominal pain secondary to mechanical small bowel obstruction with history of bowel obstruction complicated with multiple ventral hernias Hypertension Venous insufficiency to the lower extremities Suspect underlying obstructive sleep apnea Obesity, BMI 44 Plan: Nausea, vomiting, abdominal pain secondary to mechanical small bowel obstruction with history of bowel obstruction complicated with multiple ventral hernias: Inderjit cortez reports improvement. NG tube still in place. Patient reports passage of gas. Encourage ambulation. Encourage incentive spirometer. Continue with surgery recommendation. Hopefully patient does not require any surgical intervention. Anticipate improvement over the next 48 hr. Hypertension: Continue with IV medication as needed. 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 Patient now with venous insufficiency. Will continue DVT prophylaxis. Suspect underlying obstructive sleep apnea: Patient should get sleep study as an outpatient to further evaluate Obesity, BMI 44: Will address lifestyle modification education. Time Spent Managing Pts Care (In Minutes): 55
[2020-02-27] MEDS ORDERED: MINERAL OIL 30 ML UCUP FT ONE (13:19)
--- NOTE | 2020-02-27 13:19 | P.PN ---
Date of Service: 02/27/20 S: No specific complaints today. Has being passing gas per rectum. Says he can feel his stomach growling in making noises. O: Abdomen is soft, minimal pain or tenderness. There is no hernias are easily reducible. Minimal out through the nasogastric tube. A: Partial small-bowel obstruction appears to have resolved P: I will place 1 more dose of mineral oil down through the nasogastric tube 445 min, then Dc NG tube. Will start him on full liquids. He will have a regular diet in a.m. and if tolerated will be discharged at that time.
[2020-02-27 22:06] VITALS: O2SAT 100
[2020-02-28] MEDS: CEFOXITIN/SWI 1gm 1 GM/10 ML SYR IVP SCH ×3 (01:06→11:33)
[2020-02-28] MEDS: MORPHINE 4 MG/ML SYR IV PRN ×3 (01:07→11:41)
[2020-02-28] MEDS: D5 0.45 NS 1,000 ML IV SCH ×3 (03:38→11:33)
[2020-02-28 05:51] LABS: Absolute Lymphocytes (CBC) 0.9 K/uL (0.7-4.9); Basophils % 0.6 % (0-1.3); Hematocrit 38.5 % (39.6-49.0); Lymphocytes % 17.5 % (15.3-44.8); MPV 7.9 fL (7.6-11.3); RBC Red Blood Cell Count 4.91 M/uL (4.33-5.43)
[2020-02-28 06:03] LABS: BUN Blood Urea Nitrogen 11 mg/dL (7-18); Bicarbonate 33 mmol/L (21-32); Glucose Level 97 mg/dL (74-106); Magnesium 2.2 mg/dL (1.8-2.4); Potassium 4.8 mmol/L (3.5-5.1); Sodium Level 140 mmol/L (136-145)
--- NOTE | 2020-02-28 09:49 | P.PN ---
Subjective Date of Service: 02/28/20 Primary Care Provider: Dr. Johns Chief Complaint: Abdominal pain, nausea vomiting Subjective: Other (Patient improving. No significant nausea vomiting. NG tube removed.) Physical Examination - Vital Signs Temperature: 97 F Blood Pressure: 114/57 Pulse: 76 Respirations: 18 Pulse Ox (%): 99 - Physical Exam General: Alert, Cooperative HEENT: Atraumatic Neck: Supple Respiratory: Clear to auscultation bilaterally, Normal air movement Cardiovascular: Normal pulses, Regular rate/rhythm Gastrointestinal: Normal bowel sounds, No tenderness, No masses, No rebound, No guarding - Studies Medications List Reviewed: Yes Assessment & Plan Discharge Plan: Home Plan to discharge in: 24 Hours Physician Review Additional Text: Impression: Nausea, vomiting, abdominal pain secondary to mechanical small bowel obstruction with history of bowel obstruction complicated with multiple ventral hernias Hypertension Venous insufficiency to the lower extremities Suspect underlying obstructive sleep apnea Obesity, BMI 44 Plan: Nausea, vomiting, abdominal pain secondary to mechanical small bowel obstruction with history of bowel obstruction complicated with multiple ventral hernias: Patient continues to improve. Patient seen by surgery yesterday. NG tube removed. Patient reports passage of gas. Diet to be advanced. Surgery reports if improved can consider discharge today. Hypertension: If taking good oral intake will restart home medication with parameters. 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 Patient now with venous insufficiency. Will continue DVT prophylaxis. Suspect underlying obstructive sleep apnea: Patient should get sleep study as an outpatient to further evaluate Obesity, BMI 44: Will address lifestyle modification education. Time Spent Managing Pts Care (In Minutes): 55
[2020-02-28 13:55] VITALS: BP 117/58; TEMP 97.5
== END 2020-02-28 12:21 | disposition home or self-care (01) | DRG 389 ==
LOC: ER 18:59 → ERHOLD 22:35 → 2ND 23:48
PROVIDERS: ADMIT Surgery; ATTEND Surgery
DX: K56.600 Partial intestinal obstruction, unspecified as to cause (principal); Z68.41 Body mass index [BMI] 40.0-44.9, adult; E66.9 Obesity, unspecified; I10 Essential (primary) hypertension; I87.2 Venous insufficiency (chronic) (peripheral); G47.33 Obstructive sleep apnea (adult) (pediatric); K21.9 Gastro-esophageal reflux disease without esophagitis; F17.200 Nicotine dependence, unspecified, uncomplicated; K43.9 Ventral hernia without obstruction or gangrene; Z90.49 Acquired absence of other specified parts of digestive tract; Z91.018 Allergy to other foods; Z20.828 Contact with and (suspected) exposure to other viral communicable diseases
CPT/HCPCS: 36415; 74018; 74177; 80048; 80076; 83690; 83735; 85025; 93005; 96361; 96365; 96375; 99284; J0360; J0694; J0696; J1200; J2175; J2405; J7040; J7799; Q9967

== ENCOUNTER 2020-09-10 22:21 | Emergency (ER) | payer OTHER ==
--- OUTSIDE RECORDS SUMMARY | 2020-09-10 22:24 | XMS REPORT | Continuity of Care Document ---
:1975 Author Organization [facility] t Address [address] [place] [address] Care Team Providers Name Role Phone Asked, Given Primary Care Physician Unavailable Ti QUINN Attending Clinician Unavailable Marcio SÁNCHEZ, C Attending Clinician SAPNA ANDRADE Admitting Clinician Unavailable Problems Condition Condition Condition Status Onset Resolution Last Treating Co mments Source Name Details Category Date Date Treatment Clinician Date Small Small Disease Active [facility] bowel bowel 08-14 [facility] - [facility] obstructio 00:00: [facility] d[facility] n n 00 Center Allergies, Adverse Reactions, Alerts This patient has no known allergies or adverse reactions. Social History Social Habit Start Date Stop Date Quantity Comments Source Sex Assigned At [facility] Tobacco use and 2015-09-05 2015-09-05 Never used [facility] ethodist exposure 00:00:00 00:00:00 Alcohol intake 2015-09-05 2015-09-05 Current [facility] thodist 00:00:00 00:00:00 non-drinker of alcohol (finding) Smoking Status Start Date Stop Date Source Never smoker [facility] Medications Ordered Filled Start Stop Current Ordering Indication Dosage Frequency Signature Comments Components Source Medication Medication Date Date Medication? Clinician (SIG) Name Name petrolatum- Yes 1{appli Apply [address] [facility] mineral oil 5-04 cation} applicatio [facility] - Oint 00:00: n Medical topical 00 topically Center ointment as needed (as needed for leg dryness). aspirin 2015-0 Yes 81mg QD Take 81 mg [place] (ECOTRIN) 5-22 by mouth Method i 81 MG 17:28: daily. st enteric 03 coated tablet docusate 2015-0 Yes 100mg Q.5D Take 100 [place] sodium 5-22 mg by [facility] (COLACE) 17:28: mouth [address] st 100 MG 03 (two) capsule times a day. lisinopril Yes 20mg QD Take 20 mg [place] (PRINIVIL,Z 5-22 by mouth Meth mary kate ESTRIL) 20 17:28: daily. st MG tablet 03 Procedures This patient has no known procedures. Plan of Care Planned Activity Planned Date Details Comments Source Future Scheduled 2019-12-[address] [facility] - Test 00:00:00 (#1) [code = [facility] INFLUENZA VACCINE (#1)] Future Scheduled 2019-04-[address] [facility] - Test 00:00:00 (WELCOME TO [facility] MEDICARE) [code = Medicare IPPE (WELCOME TO MEDICARE)] Future Scheduled 2011-09-[address] [facility] - Test 00:00:00 (procedure) [code = [facility] [id number]] Encounters Start End Encounter Admission Attending Care Care Encounter Source Date/Time Date/Time Type Type Clinicians Facility Department ID 2018-12-23 2018-12-24 Emergency [facility] [id number] 23:17:13 00:07:00 Chong Chahal [id number] [place] [id number] [place] [id number] Results Test Description Test Time Test Comments Results Result Comments Source PHOSPHORUS 2019-08-18 04:42:00 Test Item Value Reference Range Interpretation Comme nts PHOSPHORUS (BEAKER) (test code = 604) 3.7 mg/dL 2.3-4.7 Transition Program Manager ID - MARGARET [id number] 04:42:00 Test Item Value Reference Range Interpretation Comments MAGNESIUM (BEAKER) (test code = 1.7 mg/dL 1.6-2.6 627) Transition Program Manager ID - PIAYA LBASIC METABOLIC [id number] 04:42:00 Test Item Value Reference Range Interpretation [...] S NOT APPLICABLE FOR DIALYSIS PATIEN TS. Transition Program Manager ID - PIAYA LCBC W/PLT COUNT & AUTO [id number] 04:28:00 Test Item Value Reference Range Interpretation [...] 0-1 PERCENT (BEAKER) (test code = 2801) POCT-GLUCOSE [id number] 06:56:00 Test Item Value Reference Range Interpretation Comments POC-GLUCOSE METER 98 mg/dL 70-110 : TESTED A T [facility] 6720 (BEAKER) (test code = [place], 1538) 10396: Transition Program Manager/Techni sherri ID = [id number] for SOTERO HAYES [id number] 04:58:00 Test Item Value Reference Range Interpretation Comments PHOSPHORUS (BEAKER) (test code = 3.2 mg/dL 2.3-4.7 604) Transition Program Manager ID - SONAL [id number] 04:58:00 Test Item Value Reference Range Interpretation Comments MAGNESIUM (BEAKER) (test code = 1.8 mg/dL 1.6-2.6 627) Transition Program Manager ID - SONAL WBASIC METABOLIC [id number] 04:58:00 Test Item Value Reference Range Interpretation [...] S NOT APPLICABLE FOR DIALYSIS PATIEN TS. Transition Program Manager ID - SONAL WCBC W/PLT COUNT & AUTO [id number] 04:35:00 Test Item Value Reference Range Interpretation [...] (BEAKER) (test code = 2801) BASIC METABOLIC [id number] 11:27:00 Test Item Value Reference Range Interpretation [...] S NOT APPLICABLE FOR DIALYSIS PATIEN TS. Transition Program Manager ID - MICAH WPROTHROMBIN [id number] 05:26:00 Test Item Value Reference Range Interpretation [...] mechanical heart valves.CBC W/PLT COUNT & AUTO [id number] 05:04:00 Test Item Value Reference Range Interpretation [...] (BEAKER) (test code = 2801) BASIC METABOLIC [id number] 00:05:00 Test Item Value Reference Range Interpretation [...] S NOT APPLICABLE FOR DIALYSIS PATIEN TS. Transition Program Manager ID - PIAYA LPROTHROMBIN [id number] 23:57:00 Test Item Value Reference Range Interpretation [...] INR is2.5-3.5 for patients wiht mechanical heart valves.LACTIC ACID, [id number] 23:56:00 Test Item Value Reference Range Interpretation Comments LACTATE BLOOD VENOUS (2) (BEAKER) 0.58 mmol/L 0.50-2.20 (test code = 2872) Transition Program Manager ID - PIAYA LCBC (HEMOGRAM ONLY)2019-08-15 23:43:00 Test Item Value Reference [...]
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
[2020-09-11 03:49] VITALS: TEMP 98.6
[2020-09-11 03:51] VITALS: BP 141/89; O2SAT 99
== END 2020-09-11 03:30 | disposition home or self-care (01) ==
LOC: ER 22:21
DX: I83.891 Varicose veins of right lower extremity with other complications (principal); I10 Essential (primary) hypertension; Z95.1 Presence of aortocoronary bypass graft; Z85.9 Personal history of malignant neoplasm, unspecified
CPT/HCPCS: 99283

== ENCOUNTER 2020-10-13 18:22 | Emergency (ER) | payer OTHER ==
--- OUTSIDE RECORDS SUMMARY | 2020-10-13 18:27 | XMS REPORT | Continuity of Care Document ---
:1975 Author Organization [facility] t Address [address] [place] [address] Care Team Providers Name Role Phone Asked, Given Primary Care Physician Unavailable Ti QUINN Attending Clinician Unavailable Marcio SÁNCHEZ, C Attending Clinician SAPNA ANDRADE Admitting Clinician Unavailable Problems Condition Condition Condition Status Onset Resolution Last Treating Co mments Source Name Details Category Date Date Treatment Clinician Date Small Small Disease Active [facility] bowel bowel 5 [facility] - obstructio obstructio 00:00: Me dical n n 00 Center Allergies, Adverse Reactions, Alerts This patient has no known allergies or adverse reactions. Social History Social Habit Start Date Stop Date Quantity Comments Source Tobacco use and 2015-09-05 2015-09-05 Never used [facility] ethodist exposure 00:00:00 00:00:00 Alcohol intake 2015-09-05 2015-09-05 Current [facility] thodist 00:00:00 00:00:00 non-drinker of alcohol (finding) Sex Ass[birth year] [facility] ethodist 00:00:00 00:00:00 Smoking Status Start Date Stop Date Source Never smoker [place] [facility] Medications Ordered Filled Start Stop Current Ordering [...] [facility] - Test 00:00:00 (#1) [code = [facility] INFLUENZA VACCINE (#1)] Future Scheduled 2019-04-[address] [facility] - Test 00:00:00 (WELCOME TO [facility] MEDICARE) [code = Medicare IPPE (WELCOME TO MEDICARE)] Future Scheduled 2011-09-[address] [facility] - Test 00:00:00 (procedure) [code = [facility] [id number]] Encounters Start End Encounter Admission Attending Care Care Encounter Source Date/Time Date/Time Type Type Clinicians Facility Department ID 2018-12-23 2018-12-24 [facility] [id number] 23:17:13 00:07:00 [place] [id number] [place] [id number] [place] [id number] [id number] Results Test Description Test Time Test Comments Results Result Comments Source PHOSPHORUS 2019-08-18 04:42:00 Test Item Value Reference Range Interpretation Comme nts PHOSPHORUS (BEAKER) (test code = 604) 3.7 mg/dL 2.3-4.7 Barrel Repairer ID - PIAYA [id number] 04:42:00 Test Item Value Reference Range Interpretation Comments MAGNESIUM (BEAKER) (test code = 1.7 mg/dL 1.6-2.6 627) Barrel Repairer ID - PIAYA LBASIC METABOLIC [id number] 04:42:00 Test Item Value Reference Range Interpretation [...] S NOT APPLICABLE FOR DIALYSIS PATIEN TS. Barrel Repairer ID - PIAYA LCBC W/PLT COUNT & AUTO [id number] 04:28:00 Test Item Value Reference Range Interpretation [...] PERCENT (BEAKER) (test code = 2801) POCT-GLUCOSE [id number] 06:56:00 Test Item Value Reference Range Interpretation Comments POC-GLUCOSE METER 98 mg/dL 70-110 : TESTED A T [facility] 6720 (BEAKER) (test code = YONY DECKER MS, 1538) [address]: Barrel Repairer/Techni sherri ID = [id number] for SOTERO HAYES [id number] 04:58:00 Test Item Value Reference Range Interpretation Comments PHOSPHORUS (BEAKER) (test code = 3.2 mg/dL 2.3-4.7 604) Barrel Repairer ID - SONAL [id number] 04:58:00 Test Item Value Reference Range Interpretation Comments MAGNESIUM (BEAKER) (test code = 1.8 mg/dL 1.6-2.6 627) Barrel Repairer ID - SONAL WBASIC METABOLIC [id number] 04:58:00 Test Item Value Reference Range Interpretation [...] S NOT APPLICABLE FOR DIALYSIS PATIEN TS. Barrel Repairer ID - SONAL WCBC W/PLT COUNT & AUTO [id number] 04:35:00 Test Item Value Reference Range Interpretation [...] (BEAKER) (test code = 2801) BASIC METABOLIC [id number] 11:27:00 Test Item Value Reference Range Interpretation [...] S NOT APPLICABLE FOR DIALYSIS PATIEN TS. Barrel Repairer ID - MICAH WPROTHROMBIN [id number] 05:26:00 Test Item Value Reference Range Interpretation [...] mechanical heart valves.CBC W/PLT COUNT & AUTO [id number] 05:04:00 Test Item Value Reference Range Interpretation [...] (BEAKER) (test code = 2801) BASIC METABOLIC [id number] 00:05:00 Test Item Value Reference Range Interpretation [...] S NOT APPLICABLE FOR DIALYSIS PATIEN TS. Barrel Repairer ID - PIAYA LPROTHROMBIN [id number] 23:57:00 Test Item Value Reference Range Interpretation [...] for patients wiht mechanical heart valves.LACTIC ACID, [id number] 23:56:00 Test Item Value Reference Range Interpretation Comments LACTATE BLOOD VENOUS (2) (BEAKER) 0.58 mmol/L 0.50-2.20 (test code = 2872) Barrel Repairer ID - PIAYA LCBC (HEMOGRAM ONLY)2019-08-15 23:43:00 [...]
[2020-10-13] MEDS ORDERED: LIDOCAINE 1% W/EPI 1:100,000 MDV 50 ML VIAL ONE (19:21)
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
[2020-10-13 20:48] VITALS: TEMP 98.6
[2020-10-13 20:49] VITALS: O2SAT 97
[2020-10-13 20:51] VITALS: BP 113/65
== END 2020-10-13 20:35 | disposition home or self-care (01) ==
LOC: ER 18:22
DX: I83.891 Varicose veins of right lower extremity with other complications (principal); I10 Essential (primary) hypertension

== ENCOUNTER 2020-11-13 15:49 | Inpatient (IN) | payer OTHER ==
--- OUTSIDE RECORDS SUMMARY | 2020-11-13 15:51 | XMS REPORT | Continuity of Care Document ---
:1975 Author Organization [facility] t Address [address] [place] [address] Care Team Providers Name Role Phone Asked, Given Primary Care Physician Unavailable Ti QUINN Attending Clinician Unavailable Marcio SÁNCHEZ, C Attending Clinician SAPNA ANDRADE Admitting Clinician Unavailable Problems Condition Condition Condition Status Onset Resolution Last Treating Co mments Source Name Details Category Date Date Treatment Clinician Date Small Small Disease Active [facility] bowel bowel 08-14 [facility] - obstructio obstructio 00:00: Me dical n n 00 Center Allergies, Adverse Reactions, Alerts This patient has no known allergies or adverse reactions. Social History Social Habit Start Date Stop Date Quantity Comments Source Sex Assigned At [facility] Tobacco use and 2015-09-05 2015-09-05 Never used [facility] exposure 00:00:00 00:00:00 Hospital Alcohol intake 2015-09-05 2015-09-05 Current [facility] 00:00:00 00:00:00 non-drinker of Hospital alcohol (finding) Smoking Status Start Date Stop Date Source Never smoker [facility] Medications Ordered Filled Start Stop Current Ordering Indication Dosage Frequency Signature Comments Components Source Medication Medication Date Date Medication? Clinician (SIG) Name Name petrolatum- Yes 1{appli Apply [address] [facility] mineral oil 5-04 cation} applicatio [facility] - Oint 00:00: n Medical topical 00 topically Center ointment as needed (as needed for leg dryness). aspirin 2015- Yes 81mg QD Take 81 mg Meth mary kate (ECOTRIN) 5-[address] 81 MG 22:28: daily. Hospita enteric 03 l coated tablet docusate 2015-0 Yes 100mg Q.5D Take 100 Meth mary kate sodium 5-[address] (COLACE) 22:28: mouth 2 Hospit a 100 MG 03 (two) l capsule times a day. lisinopril Yes 20mg QD Take 20 mg M ethodi (PRINIVIL,Z 5-[address] ESTRIL) 20 22:28: daily. Hospi ta MG tablet 03 l Procedures This patient has no known procedures. Plan of Care Planned Activity Planned Date Details Comments Source Future Scheduled 2019-12-[address] [facility] - Test 00:00:00 (#1) [code = [facility] INFLUENZA VACCINE (#1)] Future Scheduled 2019-04-[address] [facility] - Test 00:00:00 (WELCOME TO [facility] MEDICARE) [code = Medicare IPPE (WELCOME TO MEDICARE)] Future Scheduled 2011-09-[address] [facility] - Test 00:00:00 (procedure) [code = [facility] [id number]] Encounters Start End Encounter Admission Attending Care Care Encounter Source Date/Time Date/Time Type Type Clinicians Facility Department ID 2018-12-23 2018-12-24 Emergency [facility] [id number] 23:17:13 00:07:00 [facility] [id number] [place] [id number] [place] [id number] Results Test Description Test Time Test Comments Results Result Comments Source PHOSPHORUS 2019-08-18 04:42:00 Test Item Value Reference Range Interpretation Comme nts PHOSPHORUS (BEAKER) (test code = 604) 3.7 mg/dL 2.3-4.7 Pelt Inspector ID - MARGARET [id number] 04:42:00 Test Item Value Reference Range Interpretation Comments MAGNESIUM (BEAKER) (test code = 1.7 mg/dL 1.6-2.6 627) Pelt Inspector ID - PIAYA LBASIC METABOLIC [id number] 04:42:00 Test Item Value Reference Range Interpretation [...] S NOT APPLICABLE FOR DIALYSIS PATIEN TS. Pelt Inspector ID - PIAYA LCBC W/PLT COUNT & AUTO [id number] 04:28:00 Test Item Value Reference Range Interpretation [...] PERCENT (BEAKER) (test code = 2801) POCT-GLUCOSE [id number] 06:56:00 Test Item Value Reference Range Interpretation Comments POC-GLUCOSE METER 98 mg/dL 70-110 : TESTED A T [facility] 6720 (BEAKER) (test code = [place], 1538) [address]: Pelt Inspector/Techni sherri ID = [id number] for SOTERO HAYES [id number] 04:58:00 Test Item Value Reference Range Interpretation Comments PHOSPHORUS (BEAKER) (test code = 3.2 mg/dL 2.3-4.7 604) Pelt Inspector ID - SONAL [id number] 04:58:00 Test Item Value Reference Range Interpretation Comments MAGNESIUM (BEAKER) (test code = 1.8 mg/dL 1.6-2.6 627) Pelt Inspector ID - SONAL WBASIC METABOLIC [id number] 04:58:00 Test Item Value Reference Range Interpretation [...] S NOT APPLICABLE FOR DIALYSIS PATIEN TS. Pelt Inspector ID - SONAL WCBC W/PLT COUNT & AUTO [id number] 04:35:00 Test Item Value Reference Range Interpretation [...] (BEAKER) (test code = 2801) BASIC METABOLIC [id number] 11:27:00 Test Item Value Reference Range Interpretation [...] S NOT APPLICABLE FOR DIALYSIS PATIEN TS. Pelt Inspector ID - MICAH WPROTHROMBIN [id number] 05:26:00 Test Item Value Reference Range Interpretation [...] mechanical heart valves.CBC W/PLT COUNT & AUTO [id number] 05:04:00 Test Item Value Reference Range Interpretation [...] (BEAKER) (test code = 2801) BASIC METABOLIC [id number] 00:05:00 Test Item Value Reference Range Interpretation [...] S NOT APPLICABLE FOR DIALYSIS PATIEN TS. Pelt Inspector ID - PIAYA LPROTHROMBIN [id number] 23:57:00 Test Item Value Reference Range Interpretation [...] for patients wiht mechanical heart valves.LACTIC ACID, [id number] 23:56:00 Test Item Value Reference Range Interpretation Comments LACTATE BLOOD VENOUS (2) (BEAKER) 0.58 mmol/L 0.50-2.20 (test code = 2872) Pelt Inspector ID - PIAYA LCBC (HEMOGRAM ONLY)2019-08-15 23:43:00 [...]
[2020-11-13 19:13] LABS: Absolute Lymphocytes (CBC) 0.5 K/uL (0.7-4.9); Basophils % 0.3 % (0-1.3); Hematocrit 32.8 % (39.6-49.0); Lymphocytes % 6.9 % (15.3-44.8); MPV 7.6 fL (7.6-11.3); RBC Red Blood Cell Count 4.33 M/uL (4.33-5.43)
[2020-11-13 19:20] LABS: Albumin 3.4 g/dL (3.4-5.0); Bilirubin Direct 0.2 mg/dL (0-0.2); Bilirubin Total 0.8 mg/dL (0.2-1.0); Potassium 3.4 mmol/L (3.5-5.1); Protein, Total 8.7 g/dL (6.4-8.2)
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
[2020-11-13] MEDS ORDERED: VANCOMYCIN 1 GM/VIAL ONE (20:59)
[2020-11-13] MEDS ORDERED: NA CHLORIDE 0.9% 250 ML ONE (20:59)
[2020-11-13] MEDS ORDERED: Levofloxacin 750mg IV 750 MG/150 ML BAG IV ONE (20:59)
--- NOTE | 2020-11-13 21:58 | P.HP ---
Certification for Inpatient Patient admitted to: Inpatient With expected LOS: >2 Midnights Patient will require the following post-hospital care: None Practitioner: I am a practitioner with admitting privileges, knowledge of patient current condition, hospital course, and medical plan of care. Services: Services provided to patient in accordance with Admission requirements found in Title 42 Section 412.3 of the Code of Federal Regulations Patient History Date of Service: 11/13/20 Primary Care Provider: Dr. Johns Reason for admission: Small bowel obstruction, cellulitis History of Present Illness: 45-year-old male with history of multiple small bowel obstructions, multiple ventral hernias, hypertension, venous insufficiency of the lower extremities, obesity presents emergency primary for abdominal pain, nausea and swelling of the lower extremities. Patient very unkempt, legs dirty, swollen with ulcerations/blisters present, abdomen obese, distended with multiple ventral hernias present and healing wound near the umbilicus. Patient was evaluated in the emergency department, labs were significant for white blood cell count 7.3 hemoglobin 10.8 hematocrit 32.8 potassium 3.4 chloride 108 GFR [address] glucose [address] abdomen pelvis significant for numerous bowel containing ventral hernias including a Saenz's type hernia intervening segments of a small dilated bowel but the obstruction for this downstream is not associated with the hernia could be due to adhesions. Hernias may be contributing to partial obstructions at various points no pneumatosis or portal venous gas noted. Case was discussed with general surgery who is familiar with patient, recommends admission with p.o. mineral oil every 6 hours throughout the evening. Allergies cabbage Allergy (Verified 02/10/19 02:54) Nausea/Vomiting No Known Drug Allergies Allergy (Verified 02/25/20 00:20) Unknown spinach Allergy (Verified 09/13/18 18:08) Nausea/Vomiting Home Medications: NK [No Home Meds] 11/21/18 - Past Medical/Surgical History Diabetic: No -: History of testicular cancer -: History of small bowel obstruction -: History of multiple abdominal surgeries -: Large abdominal hernias -: Likely underlying obstructive sleep apnea -: Morbid obesity -: Varicose veins -: GERD -: Venous stasis with insufficiency of the lower extremity -: Lymphedema to the lower extremity -: Hypertension -: Appendectomy -: Cholecystectomy -: Bowel repair secondary to bowel perforation -: Hernia mesh repair Psychosocial/ Personal History: The patient is single. He has 2 children. He is currently disabled. - Family History Father -: Heart disease - Social History Smoking Status: Unknown if ever smoked Alcohol use: No CD- Drugs: No Caffeine use: No Place of Residence: Home Review of Systems 10-point ROS is otherwise unremarkable General: Weakness, Malaise Gastrointestinal: Nausea, Abdominal Pain Physical Examination - Physical Exam General: Alert, In no apparent distress, Oriented x3, Disheveled, Obese, Other (Unkempt) HEENT: Mucous membr. moist/pink Neck: Supple Respiratory: Diminished Cardiovascular: Regular rate/rhythm Capillary refill: <2 Seconds Gastrointestinal: Other (Multiple large hernias noted on exam), Distended, Tenderness (Mild to moderate generalized abdominal tenderness) Musculoskeletal: Swelling, Tenderness, Other (Bilateral lymphedema lower extremities) Integumentary: Tenderness/swelling Neurological: Normal speech, Normal tone, Sensation intact - Studies Laboratory Data (last 24 hrs) 11/13/20 18:30: WBC 7.30, Hgb 10.8 L, Hct 32.8 L, Plt Count 214 11/13/20 18:30: Sodium 140, Potassium 3.4 L, BUN 12, Creatinine 0.99, Glucose 115 H, Total Bilirubin 0.8, AST 19, ALT 22, Alkaline Phosphatase 99, Lipase 38 L Assessment and Plan - Plan Assessment: Small bowel obstruction complicated with history of multiple large hernias and multiple previous abdominal surgeries Cellulitis bilateral lower extremities complicated with history of lymphedema, chronic venous insufficiency Hypertension Obesity Plan: Small bowel obstruction complicated with history of multiple large ventral hernias and multiple previous abdominal surgeries: NPO aside from mineral oil p.o. every 6 hours per general surgery. IVF, IV antibiotics. KUB with morning lab. Appreciate further input from general surgery. NGT if with worsening abdominal distention, pain, vomiting. Cellulitis bilateral lower extremities complicated with history of lymphedema, chronic venous insufficiency: Patient reportedly with chronic lymphedema/venous insufficiency secondary to surgeries for clubfoot as a child, patient is unkempt wounds appear dirty with erythema noted will continue with IV antibiotics for now, white blood cell count normal procalcitonin normal at this time blood cultures were obtained. May possibly be able to discontinue vancomycin in the coming days. Hypertension: Obtain continue home medications adjust as needed Obesity: Lifestyle changes addressed. DVT PPX: Lovenox Code status: Full Discharge Plan: Home Plan to discharge in: Greater than 2 days - Advance Directives Does patient have a Living Will: No Does patient have a Durable POA for Healthcare: No - Code Status/Comfort Care Code Status Assessed: Yes (Full code) Critical Care: No Time Spent Managing Pts Care (In Minutes): 55
[2020-11-13] MEDS ORDERED: ONDANSETRON 4 MG/2 ML VIAL IV PRN (22:49)
[2020-11-13] MEDS ORDERED: VANCOMYCIN/NS 1 gm 1 GM/250 ML BAG IVPB SCH (22:49)
[2020-11-13] MEDS: MINERAL OIL 30 ML UCUP PO SCH (22:49)
[2020-11-13 23:39] VITALS: BMI 47.5
[2020-11-14] MEDS: D5 0.45 NS 1,000 ML IV SCH ×2 (00:34→12:09)
[2020-11-14] MEDS ORDERED: PIPER/TAZO/NS 3.375gm 3.375 GM/100 ML BAG IVPB SCH ×2 (01:00→09:00)
[2020-11-14] MEDS: KCL 20 MEQ/100 mL IVPB 20 MEQ/100 ML BAG IV SCH ×3 (03:00→05:57)
[2020-11-14] MEDS ORDERED: KCL 20 MEQ/100 mL IVPB 20 MEQ/100 ML BAG IV ONE (03:53)
[2020-11-14] MEDS ORDERED: VANCOMYCIN/NS 1 gm 1 GM/250 ML BAG IV ONE (04:45)
[2020-11-14] MEDS: MINERAL OIL 30 ML UCUP PO SCH ×3 (04:49→16:49)
[2020-11-14] MEDS ORDERED: NA CHLORIDE 0.9% 250 ML ONE (05:19)
[2020-11-14] MEDS ORDERED: VANCOMYCIN 1 GM/VIAL ONE ×3 (05:19→21:50)
[2020-11-14 06:11] LABS: Absolute Lymphocytes (CBC) 0.6 K/uL (0.7-4.9); Basophils % 0.4 % (0-1.3); Hematocrit 30.5 % (39.6-49.0); Lymphocytes % 10.3 % (15.3-44.8); MPV 7.3 fL (7.6-11.3); RBC Red Blood Cell Count 4.02 M/uL (4.33-5.43)
[2020-11-14 06:32] LABS: ALT/SGPT 18 U/L (12-78); AST/SGOT 14 U/L (15-37); Alkaline Phosphatase 90 U/L (45-117); BUN Blood Urea Nitrogen 9 mg/dL (7-18); Bicarbonate 28 mmol/L (21-32); Bilirubin Total 0.7 mg/dL (0.2-1.0); Glucose Level 100 mg/dL (74-106); HDL Cholesterol 36 mg/dL (40-60); LDL Cholesterol, Calculated 52 (<130); Magnesium 1.9 mg/dL (1.8-2.4); Potassium 3.5 mmol/L (3.5-5.1); Protein, Total 7.7 g/dL (6.4-8.2); Sodium Level 141 mmol/L (136-145); Thyroid Stimulating Hormone 0.631 uIU/mL (0.360-3.740)
[2020-11-14] MEDS: ENOXAPARIN 40 MG/0.4 ML SQ SCH (09:00)
--- NOTE | 2020-11-14 14:49 | P.PN ---
Subjective Date of Service: 11/14/20 Primary Care Provider: Dr. Johns Chief Complaint: Small bowel obstruction, cellulitis Patient states he is feeling better. He stated dementia passed gas this morning. He denies abdominal pain. Physical Examination - Vital Signs Temperature: 97.6 F Blood Pressure: 167/94 Pulse: 87 Respirations: 16 Pulse Ox (%): 98 - Physical Exam General: In no apparent distress, Obese HEENT: Mucous membr. moist/pink Neck: JVD not distended Respiratory: Clear to auscultation bilaterally, Normal air movement Cardiovascular: Regular rate/rhythm, Normal S1 S2, Edema (2+ bilateral lower extremity edema) Gastrointestinal: Soft and benign, Other (Obese abdomen, multiple surgical scars, multiple hernia) Musculoskeletal: Other (Bilateral lower extremity lymphedema) Integumentary: Other (Bilateral lower extremity venostasis dermatitis, worse on the right) Neurological: Normal strength at 5/5 x4 extr - Studies Laboratory Data (last 24 hrs) 11/13/20 18:30: WBC 7.30, Hgb 10.8 L, Hct 32.8 L, Plt Count 214 11/13/20 18:30: Sodium 140, Potassium 3.4 L, BUN 12, Creatinine 0.99, Glucose 115 H, Total Bilirubin 0.8, AST 19, ALT 22, Alkaline Phosphatase 99, Lipase 38 L Assessment And Plan - Current Problems (Diagnosis) (1) Bowel obstruction Current Visit: Yes Status: Acute (2) Abdominal hernia Onset Date: 03/15/17 Current Visit: No Status: Acute Qualifiers: Hernia type: other abdominal hernia Obstruction and gangrene presence: without obstruction or gangrene Qualified Code(s): K45.8 - Other specified abdominal hernia without obstruction or gangrene (3) Cellulitis of right lower extremity Current Visit: No Status: Acute (4) Morbid obesity with BMI of 40.0-44.9, adult Onset Date: 03/15/17 Current Visit: No Status: Chronic (5) Venous stasis dermatitis of both lower extremities Current Visit: No Status: Chronic (6) Obstructive sleep apnea Current Visit: No Status: Suspected - Plan Dr. Rincon consult and his input is appreciated. Title aware recommend medical management for now with laxative. General surgery to follow Continue antibiotics for lower extremity cellulitis. Ulcer and sores no lower extremities secondary to venous stasis. Wound care consult. Daily dressing. Pain management as needed. Patient stated he never wore CPAP. Impressed upon him to get another sleep study done for CPAP
[2020-11-14] MEDS: CEFEPIME 1 GM in NA CHLORIDE 0.9% 100 ML IVP SCH ×2 (16:10→21:01)
[2020-11-14] MEDS ORDERED: CEFEPIME 1 GM/VIAL IV SCH (17:00)
[2020-11-14] MEDS ORDERED: MAGNESIUM CITRATE 300 ML BOT PO ONE (18:00)
[2020-11-14] MEDS: MORPHINE 2 MG/ML SYR IV PRN (20:02)
[2020-11-14] MEDS ORDERED: VANCOMYCIN 2 GM in NA CHLORIDE 0.9% 500 ML IVPB SCH (21:00)
[2020-11-14] MEDS ORDERED: NA CHLORIDE 0.9% 500 ML ONE (21:47)
[2020-11-15] MEDS ORDERED: HYDRALAZINE HCL 20 MG/ML VIAL IV PRN (00:01)
[2020-11-15 00:59] VITALS: O2SAT 94
[2020-11-15] MEDS: D5 0.45 NS 1,000 ML IV SCH ×2 (01:29→13:55)
[2020-11-15 05:59] LABS: Absolute Lymphocytes (CBC) 0.8 K/uL (0.7-4.9); Basophils % 0.7 % (0-1.3); Hematocrit 32.1 % (39.6-49.0); Lymphocytes % 18.2 % (15.3-44.8); MPV 7.3 fL (7.6-11.3); RBC Red Blood Cell Count 4.25 M/uL (4.33-5.43)
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
[2020-11-15 08:46] LABS: ALT/SGPT 17 U/L (12-78); AST/SGOT 12 U/L (15-37); Alkaline Phosphatase 89 U/L (45-117); BUN Blood Urea Nitrogen 7 mg/dL (7-18); Bicarbonate 27 mmol/L (21-32); Bilirubin Total 0.5 mg/dL (0.2-1.0); Glucose Level 86 mg/dL (74-106); Magnesium 2.2 mg/dL (1.8-2.4); Potassium 3.5 mmol/L (3.5-5.1); Protein, Total 7.8 g/dL (6.4-8.2); Sodium Level 142 mmol/L (136-145)
[2020-11-15] MEDS: CEFEPIME/SWI 1gm 10 ML IVP SCH ×2 (09:21→18:05)
[2020-11-15] MEDS: VANCOMYCIN 2 GM in NA CHLORIDE 0.9% 500 ML IVPB SCH ×2 (09:21→21:00)
[2020-11-15] MEDS: ENOXAPARIN 40 MG/0.4 ML SQ SCH (09:21)
[2020-11-15] MEDS: MORPHINE 2 MG/ML SYR IV PRN (09:37)
--- NOTE | 2020-11-15 14:38 | P.PN ---
Subjective Date of Service: 11/15/20 Primary Care Provider: Dr. Johns Chief Complaint: Small bowel obstruction, cellulitis Patient states he is feeling better and wants to eat He stated he has been having flatus. No bowel movement yet. He denies abdominal pain. Abdominal x-rays shows improvement in the bowel dilatation. Physical Examination - Vital Signs Temperature: 97.6 F Blood Pressure: 135/88 Pulse: 65 Respirations: 16 Pulse Ox (%): 96 - Physical Exam General: Alert, In no apparent distress, Oriented x3, Obese HEENT: Mucous membr. moist/pink Neck: JVD not distended Respiratory: Clear to auscultation bilaterally, Normal air movement Cardiovascular: No edema, Regular rate/rhythm, Normal S1 S2 Gastrointestinal: Soft and benign, Non-distended, No tenderness, Other (Bowel sounds-high pitched.) Musculoskeletal: Swelling (Bilateral lower extremity) Integumentary: Venous stasis ulcer (Right lower extremity), Other (Bilateral lower extremity venostasis dermatitis.) Neurological: Normal speech, Normal strength at 5/5 x4 extr - Studies Microbiology Data (last 24 hrs): 11/13/20 18:30 Blood - Blood Blood Culture Gram Stain - Final Assessment And Plan - Current Problems (Diagnosis) (1) Bowel obstruction Current Visit: Yes Status: Acute (2) Abdominal hernia Onset Date: 03/15/17 Current Visit: No Status: Acute Qualifiers: Hernia type: other abdominal hernia Obstruction and gangrene presence: without obstruction or gangrene Qualified Code(s): K45.8 - Other specified abdominal hernia without obstruction or gangrene (3) Cellulitis of right lower extremity Current Visit: No Status: Acute (4) Morbid obesity with BMI of 40.0-44.9, adult Onset Date: 03/15/17 Current Visit: No Status: Chronic (5) Venous stasis dermatitis of both lower extremities Current Visit: No Status: Chronic (6) Obstructive sleep apnea Current Visit: No Status: Suspected - Plan General surgery is following. KUB result reviewed and reporting improvement in the bowel obstruction. General surgery-Dr. Rowe to follow Medical medical management. Clear liquid per Dr. Rowe Continue antibiotics for lower extremity cellulitis. Wound care input appreciated. Ulcer and sores no lower extremities secondary to venous stasis. Daily dressing. Pain management as needed.
[2020-11-15] MEDS ORDERED: MINERAL OIL 30 ML UCUP PO ONE (14:43)
--- NOTE | 2020-11-15 14:43 | P.CNS ---
Date of Consult: 11/15/20 PC: I was asked to see this 45-year-old male who presented to the emergency room with severe abdominal pain and suspected partial small bowel obstruction. HPC: Patient has had this ongoing problem for the last few years. This time he noticed he was started having abdominal pain shortly after he ate he ate a large pickle. Had a cramping, severe discomfort that he normally has after dietary indiscretion. PSHx: Exploratory laparotomy in the past, numerous admissions for partial small bowel obstruction Social Hx: States he is allergic to cabbage and spinach Sys R: No cough, wheeze, shortness of breath. No chest pain or palpitations. Still having trouble with his chronic varicose veins and ulcers. O/E: Awake alert vital signs are stable HEENT: Within normal limits Chest: Air entry equal bilaterally Abd: Abdomen soft, mildly tympanic but less distended than yesterday [place]: Varicose veins chronically both legs Data: CT scan shows partial small bowel obstruction Impression: Partial small bowel obstruction [appears to be resolving today] Plan: Mineral oil, magnesium citrate, start on clear liquid diet, anticipate discharge soon.
--- NOTE | 2020-11-15 19:57 | P.DS ---
Admission Date: 11/13/20 Discharge Date: 11/15/20 Primary Care Provider: Dr. Johns Disposition: ROUTINE DISCHARGE Discharge Condition: FAIR Reason for Admission: Small bowel obstruction, cellulitis - Problems (1) Bowel obstruction Current Visit: Yes Status: Acute (2) Abdominal hernia Onset Date: 03/15/17 Current Visit: No Status: Acute Qualifiers: Hernia type: other abdominal hernia Obstruction and gangrene presence: without obstruction or gangrene Qualified Code(s): K45.8 - Other specified abdominal hernia without obstruction or gangrene (3) Cellulitis of right lower extremity Current Visit: No Status: Acute (4) Morbid obesity with BMI of 40.0-44.9, adult Onset Date: 03/15/17 Current Visit: No Status: Chronic (5) Venous stasis dermatitis of both lower extremities Current Visit: No Status: Chronic (6) Obstructive sleep apnea Current Visit: No Status: Suspected Brief History of Present Illness: 45-year-old man with history of multiple small bowel obstructions, multiple ventral hernias, hypertension, venous insufficiency of the lower extremities, obesity presented to the ED for abdominal pain, nausea and swelling of the lower extremities. Patient very unkempt, legs dirty, swollen with ulcerations/blisters present, abdomen obese, distended with multiple ventral hernias present and healing wound near the umbilicus. CT abdomen pelvis significant for numerous bowel containing ventral hernias including a Saenz's type hernia intervening segments of a dilated small bowel suggesting partial bowel obstruction. Hernias may be contributing to partial obstructions at various points. no pneumatosis or portal venous gas noted. Patient was hospitalized for further management. Hospital Course: Patient admitted to the medical floor and treated with supportive measures including IV fluid, opioid for pain management. General surgery recommended laxatives. Patient was given Mag citrate and subsequently had a bowel movement within a couple of days. She was seen by wound care for his lower extremity venostasis dermatitis and ulcers. Please see below for wound care recommendations. Patient cleared for discharge by general surgery-Dr. Rincon. Vital Signs/Physical Exam: Temp Pulse Resp BP Pulse Ox 97.6 F 80 16 161/78 H 96 11/15/20 16:00 11/15/20 16:00 11/15/20 16:00 11/15/20 16:00 11/15/20 16:00 General: Alert, In no apparent distress, Obese HEENT: Mucous membr. moist/pink Neck: JVD not distended Respiratory: Clear to auscultation bilaterally, Normal air movement Cardiovascular: Regular rate/rhythm, Normal S1 S2 Gastrointestinal: Soft and benign, Non-distended, No tenderness, Other (Multiple anterior abdominal hernias) Integumentary: Venous stasis ulcer, Other (Venostasis dermatitis) Neurological: Normal strength at 5/5 x4 extr Laboratory Data at Discharge: WBC 4.20 K/uL (4.3-10.9) L D 11/15/20 05:22 Hgb 10.7 g/dL (13.6-17.9) L 11/15/20 05:22 Hct 32.1 % (39.6-49.0) L 11/15/20 05:22 Plt Count 190 K/uL (152-406) 11/15/20 05:22 Sodium 142 mmol/L (136-145) 11/15/20 05:22 Potassium 3.5 mmol/L (3.5-5.1) 11/15/20 05:22 BUN 7 mg/dL (7-18) 11/15/20 05:22 Creatinine 0.73 mg/dL (0.55-1.3) 11/15/20 05:22 Glucose 86 mg/dL (74-106) 11/15/20 05:22 Magnesium 2.2 mg/dL (1.8-2.4) 11/15/20 05:22 Total Bilirubin 0.5 mg/dL (0.2-1.0) 11/15/20 05:22 AST 12 U/L (15-37) L 11/15/20 05:22 ALT 17 U/L (12-78) 11/15/20 05:22 Alkaline Phosphatase 89 U/L (45-117) 11/15/20 05:22 Triglycerides 94 mg/dL (<150) 11/14/20 05:22 Cholesterol 107 mg/dL (<200) 11/14/20 05:22 HDL Cholesterol 36 mg/dL (40-60) L 11/14/20 05:22 Cholesterol/HDL Ratio 2.97 11/14/20 05:22 Lipase 38 U/L (73-393) L 11/13/20 18:30 Home Medications: Fluocinonide [Lidex] 1 appl TOP DAILY #1 tube 11/15/20 New Medications: Fluocinonide [Lidex] 1 appl TOP DAILY #1 tube Physician Discharge Instructions: Wound Care recommendation: Clean affected leg with chlorhexidine and lightly mechanically debride with towel. Apply Lidex Cream to dry, scaly areas. Apply A&D ointment to remainder of extremity and foot. Cover draining area of ankle/leg with Algisite (calcium alginate), ABD pads, kerlix and Luis Antonio from behind toes to 2" below knee. Change dressing daily. Diet: ADA Activity: Ad avinash Followup: NONE,NONE [Primary Care Provider] - Time spent managing pt's care (in minutes): 36
--- NOTE | 2020-11-15 20:48 | CON ---
Date of Consultation: 11/15/2020 Reason For Consultation: Small bowel obstruction. History Of Present Illness: The patient is a 45-year-old gentleman, who came in on Sunday with abdominal pain following ingestion of large pickle. He describes the pain as achy and crampy in nature. He has had multiple bowel obstructions in the past. He has multiple hernias. I have seen him in the past and I have recommended he get surgery done in [place] for abdominal wall reconstruction as he has very little normal anatomy of his abdomen and he required team of reconstructive surgeons to help him. He denies any nausea and vomiting. He started to pass gas today. No bowel movement. No sore throat, runny nose, cough, headaches, or dizziness. No chest pain. No fever or chills. Review of Systems: Otherwise unremarkable. Past Medical History: Significant for clubfoot, hernia surgeries multiple, hypertension, obstruction of the bowel, perforated bowels, multiple small bowel obstructions, varicose vein surgery. Allergies: CABBAGE. Social History: He does smoke, drinks occasionally and has been counseled. Family History: Noncontributory. Physical Examination: Vital Signs: Currently stable. He is afebrile. General: He is awake, alert, and oriented x3. Head and Neck: Cranial nerves 2 through 12 grossly within normal limits. No neck masses. No JVD. Throat clear. Neck is supple. Chest: Clear. Heart: S1 and S2. Abdomen: Soft, nondistended, depressible. Positive bowel sounds. Minimal tenderness. No rebound, rigidity, or guarding. Multiple hernias palpated, but reducible. Extremities: Adequately perfused. Nontender. Neuro: Nonfocal. Laboratory Data: White count is 4.2. There is no left shift. Today chemistry reviewed, essentially within normal limits. The patient had an x-ray today, which shows decreased prominence of small bowel gas pattern since November 13 imaging. No free air or pneumatosis. A CT of the abdomen and pelvis shows numerous bowel containing ventral hernias including segments of dilated small bowel obstruction hernia and this may be due to adhesions and this was done on Sunday. Assessment: Small bowel obstruction, improving. Recommendations: As the patient is passing gas and physical exam does not show any evidence of peritonitis and improvement based on the evaluation by Dr. Becerril, we will go ahead and start him on sips of clear liquids and see how he does following which it will be advance as tolerated. As stated earlier, the patient is a very high risk candidate for surgery at this institution. Should he require intervention, it will be appropriate for the patient to be at a tertiary care facility. [email or web address]/MARTINEZ Voice ID: [id number] Report ID: [id number] MTDD
[2020-11-15 21:34] VITALS: BP 144/88; TEMP 97.5
[2020-11-16] MEDS ORDERED: FLUOCINONIDE 0.05% CREAM 30GM TOP SCH (09:00)
== END 2020-11-15 22:19 | disposition home or self-care (01) | DRG 389 ==
LOC: ER 15:49 → ERHOLD 21:30 → 2ND 22:34
PROVIDERS: ADMIT Internal Medicine; ATTEND Internal Medicine
DX: K56.600 Partial intestinal obstruction, unspecified as to cause (principal); L03.115 Cellulitis of right lower limb; Z68.42 Body mass index [BMI] 45.0-49.9, adult; L97.919 Non-pressure chronic ulcer of unspecified part of right lower leg with unspecified severity; I10 Essential (primary) hypertension; F17.210 Nicotine dependence, cigarettes, uncomplicated; E66.01 Morbid (severe) obesity due to excess calories; G47.33 Obstructive sleep apnea (adult) (pediatric); F03.90 Unspecified dementia, unspecified severity, without behavioral disturbance, psychotic disturbance, mood disturbance, and anxiety; K45.8 Other specified abdominal hernia without obstruction or gangrene; I87.8 Other specified disorders of veins; K21.9 Gastro-esophageal reflux disease without esophagitis; I87.2 Venous insufficiency (chronic) (peripheral); Z90.49 Acquired absence of other specified parts of digestive tract; Z79.899 Other long term (current) drug therapy; Z85.47 Personal history of malignant neoplasm of testis; Z91.018 Allergy to other foods; Z20.822 Contact with and (suspected) exposure to COVID-19
CPT/HCPCS: 36415; 74018; 74176; 76377; 80048; 80053; 80061; 80076; 83605; 83690; 83735; 84145; 84439; 84443; 85025; 87040; 87205; 96365; 96366; 96375; 99251; 99284; J0360; J0692; J1650; J2270; J2543; J3370; J3480; J7040; J7050; J7799; U0003

== ENCOUNTER 2021-02-11 14:16 | Emergency (ER) | payer OTHER ==
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
[2021-02-11] MEDS ORDERED: HYDROCODONE/APAP 10/325 TAB ONE (14:59)
[2021-02-11] MEDS ORDERED: LIDOCAINE 1% W/EPI 1:100,000 MDV 20 ML VIAL ONE (14:59)
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
[2021-02-11 16:20] VITALS: TEMP 98.8
[2021-02-11 16:24] VITALS: BP 154/98; O2SAT 100
== END 2021-02-11 16:15 | disposition home or self-care (01) ==
LOC: ER 14:16
PROC: 0JQ10ZZ Repair Face Subcutaneous Tissue and Fascia, Open Approach (ICD-10-PCS; principal; 2021-02-11)
DX: S01.112A Laceration without foreign body of left eyelid and periocular area, initial encounter (principal); W22.8XXA Striking against or struck by other objects, initial encounter; I10 Essential (primary) hypertension
CPT/HCPCS: 70450; 72125; 99284

== ENCOUNTER 2021-09-13 11:44 | Emergency (ER) | payer OTHER ==
--- OUTSIDE RECORDS SUMMARY | 2021-09-13 11:47 | XMS REPORT | Continuity of Care Document ---
:1975 Author Organization [facility] t Address [address] [place] [address] Care Team Providers Name Role Phone Asked, Given Primary Care Physician Unavailable Ti QUINN Attending Clinician Unavailable Marcio SÁNCHEZ C Attending Clinician SAPNA ANDRADE Admitting Clinician Unavailable Payers Payer Name Policy Type Policy Number Effective Date Expiration Date S ource Problems Condition Condition Condition Status Onset Resolution Last Treating Co mments Source Name Details Category Date Date Treatment Clinician Date No known No known Disease Unive rs active active ity of problems problems [facility] Allergies, Adverse Reactions, Alerts Allergy Allergy Status Severity Reaction(s) Onset Inactive Treating Comm ents Source Name Type Date Date Clinician NO KNOWN Allergy Active [facility] Social History Social Habit Start Date Stop Date Quantity Comments Source [facility] Tobacco use and 2015-09-05 2015-09-05 Never used [facility] exposure 00:00:00 00:00:00 Alcohol intake 2015-09-05 2015-09-05 Current [facility] 00:00:00 00:00:00 non-drinker of alcohol (finding) Smoking Status Start Date Stop Date Source Unknown if ever smoked [facility] Never smoker [facility] Medications Ordered Filled Start Stop Current Ordering Indication Dosage Frequency Signature Comments Components Source Medication Medication Date Date Medication? Clinician (SIG) Name Name aspirin Yes 81mg QD Take 81 mg Meth mary kate (ECOTRIN) 5-[address] 81 MG 22:28: daily. [facility]ospita enteric 03 l coated tablet docusate Yes 100mg Q.5D Take 100 Meth mary kate sodium 5-[address] (COLACE) 22:28: mouth 2 Hospit a 100 MG 03 (two) l capsule times a day. lisinopril Yes 20mg QD Take 20 mg M ethodi (PRINIVIL,Z 5-[address] ESTRIL) 20 22:28: daily. Hospi ta MG tablet 03 l No known No [facility] medications [facility] Vital Signs Vital Name Observation Time Observation Value Comments Source Body height 2018-12-24 04:20:00 180.3 cm [facility] Body weight 2018-12-24 04:20:00 143.79 kg [facility] BMI 2018-12-24 04:20:00 44.21 kg/m2 [facility] Oxygen saturation in 2018-12-24 04:20:00 100 /min [facility] blood by [facility] Pulse oximetry Branch Heart rate 2018-12-24 04:20:00 87 /min [facility] Body temperature 2018-12-24 04:20:00 36.56 Melida [facility] Respiratory rate 2018-12-24 04:20:00 20 /min [facility] Body height 2018-12-24 04:20:00 180.3 cm [facility] Body weight 2018-12-24 04:20:00 143.79 kg [facility] BMI 2018-12-24 04:20:00 44.21 kg/m2 [facility] Oxygen saturation in 2018-12-24 04:20:00 100 /min [facility] blood by [facility] Pulse oximetry [facility] Heart rate 2018-12-24 04:20:00 87 /min [facility] Body temperature 2018-12-24 04:20:00 36.56 Melida [facility] Respiratory rate 2018-12-24 04:20:00 20 /min [facility] Procedures This patient has no known procedures. Encounters Start End Encounter Admission Attending Care Care Encounter Source Date/Time Date/Time Type Type Clinicians Facility Department ID 2019-08-15 Inpatient [facility] [id number] [facility] 20:12:00 [id number] 2018-12-23 2018-12-24 Emergency Marcio [facility] [id number] Univers 23:17:13 00:07:00 Chong Ch[place]al [id number] [facility] [place] [id number] [facility] [id number] [facility] 084 Branch 2018-12-23 2018-12-[facility] [id number] 23:17:13 00:07:00 Chong Chahal [id number] [place] [id number] [place] [id number] Results Test Description Test Time Test Comments Results Result Comments Source PHOSPHORUS 2019-08-18 04:42:00 Test Item Value Reference Range Interpretation Comme nts PHOSPHORUS (BEAKER) (test code = 604) 3.7 mg/dL 2.3-4.7 [facility] ID - PIAYA [id number] 04:42:00 Test Item Value Reference Range Interpretation Comments MAGNESIUM (BEAKER) (test code = 1.7 mg/dL 1.6-2.6 627) [facility] ID - PIAYA LBASIC METABOLIC [id number] 04:42:00 Test Item Value Reference Range Interpretation [...] S NOT APPLICABLE FOR DIALYSIS PATIEN TS. Cate[facility] Aide ID - PIAYA LCBC W/PLT COUNT & AUTO [id number] 04:28:00 Test Item Value Reference Range Interpretation [...] PERCENT (BEAKER) (test code = 2801) POCT-GLUCOSE [id number] 06:56:00 Test Item Value Reference Range Interpretation Comments POC-GLUCOSE METER 98 mg/dL 70-110 : TESTED A T [facility] 6720 (BEAKER) (test code = [place], 1538) [address]: Caterer[employer] Aide/Techni sherri ID = [id number] for SOETRO HAYES [id number] 04:58:00 Test Item Value Reference Range Interpretation Comments PHOSPHORUS (BEAKER) (test code = 3.2 mg/dL 2.3-4.7 604) Caterer[facility] Aide ID - SONAL [id number] 04:58:00 Test Item Value Reference Range Interpretation Comments MAGNESIUM (BEAKER) (test code = 1.8 mg/dL 1.6-2.6 627) Caterer[facility] Aide ID - SONAL WBASIC METABOLIC [id number] 04:58:00 Test Item Value Reference Range Interpretation [...] S NOT APPLICABLE FOR DIALYSIS PATIEN TS. Caterer[facility] Aide ID - SONAL WCBC W/PLT COUNT & AUTO [id number] 04:35:00 Test Item Value Reference Range Interpretation [...] (BEAKER) (test code = 2801) BASIC METABOLIC [id number] 11:27:00 Test Item Value Reference Range Interpretation [...] S NOT APPLICABLE FOR DIALYSIS PATIEN TS. Caterer'S Aide ID - MICAH WPROTHROMBIN [id number] 05:26:00 Test Item Value Reference Range Interpretation [...] mechanical heart valves.CBC W/PLT COUNT & AUTO [id number] 05:04:00 Test Item Value Reference Range Interpretation [...] (BEAKER) (test code = 2801) BASIC METABOLIC [id number] 00:05:00 Test Item Value Reference Range Interpretation [...] S NOT APPLICABLE FOR DIALYSIS PATIEN TS. Caterer[facility] Aide ID Moisés ROBLES LPROTHROMBIN [id number] 23:57:00 Test Item Value Reference Range Interpretation [...] for patients wiht mechanical heart valves.LACTIC ACID, [id number] 23:56:00 Test Item Value Reference Range Interpretation Comments LACTATE BLOOD VENOUS (2) (BEAKER) 0.58 mmol/L 0.50-2.20 (test code = 2872) Caterer'S Aide ARSEN ROBLES LCBC (HEMOGRAM ONLY)2019-08-15 23:43:00 Test Item Value [...]
[2021-09-13] MEDS ORDERED: HYDROCODONE/APAP 10/325 TAB ONE (12:34)
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
[2021-09-13] MEDS ORDERED: BACI/NEOMYCIN/POLY OINT 15GM TOP ONE (13:46)
[2021-09-13 15:30] VITALS: BP 151/102; TEMP 97.7; O2SAT 98
== END 2021-09-13 15:25 | disposition home or self-care (01) ==
LOC: ER 11:44
DX: I89.0 Lymphedema, not elsewhere classified (principal); I10 Essential (primary) hypertension; Z72.0 Tobacco use
CPT/HCPCS: 99284

== ENCOUNTER 2021-10-31 19:31 | Emergency (ER) | payer OTHER ==
[2021-10-31] MEDS ORDERED: LIDOCAINE 1% MPF 5 ML VIAL ONE (19:46)
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
[2021-10-31 21:48] VITALS: TEMP 98.4
[2021-10-31 21:55] VITALS: BP 148/78; O2SAT 99
== END 2021-10-31 21:16 | disposition home or self-care (01) ==
LOC: ER 19:31
DX: I83.891 Varicose veins of right lower extremity with other complications (principal); I10 Essential (primary) hypertension
CPT/HCPCS: 99284

== ENCOUNTER 2022-05-27 18:02 | Inpatient (IN) | payer OTHER ==
--- OUTSIDE RECORDS SUMMARY | 2022-05-27 18:05 | XMS REPORT | Continuity of Care Document ---
:1975 Author Organization [facility] t Address [address] [place] [address] Care Team Providers Name Role Phone Asked, None Given Primary Care Physician Unavailable RAYO QUINN Attending Clinician Unavailable Marcio SÁNCHEZ, Chong Pulliam Attending Clinician MARLENE ANDRADE Admitting Clinician Unavailable Payers Payer Name Policy Type Policy Number Effective Date Expiration Date S ource Problems Condition Condition Condition Status Onset Resolution Last Treating Co mments Source Name Details Category Date Date Treatment Clinician Date Small Small Disease Active [facility] bowel bowel 08-14 [facility] obstructio obstructio 00:00: Me dical n n 00 Center No known No known Disease Unive rs active active ity of problems problems [facility] Allergies, Adverse Reactions, Alerts Allergy Allergy Status Severity Reaction(s) Onset Inactive Treating Comm ents Source Name Type Date Date Clinician NO KNOWN Allergy Active [facility] Social History Social Habit Start Date Stop Date Quantity Comments Source Alcohol intake 2015-09-05 2015-09-05 Current [facility] 00:00:00 00:00:00 non-drinker of Hospital alcohol (finding) Tobacco use and 2015-09-05 2015-09-05 Never used [facility] exposure 00:00:00 00:00:00 Hospital Sex Assigned At [birth year] GELACIO Gómez kes 00:00:00 [facility]:00 [facility] Smoking Status Start Date Stop Date Source Unknown if ever smoked [facility] Medications Ordered Filled Start Stop Current Ordering Indication Dosage Frequency Signature Comments Components Source Medication Medication Date Date Medication? Clinician (SIG) Name Name portia- Yes 1{appli Apply [address] [facility] mineral oil 5-04 cation} [facility] 00:[facility]: n Medical topical 00 topically [...] daily. Hospi ta MG tablet 03 l aspirin Yes 81mg QD Take 81 mg Meth mary kate (ECOTRIN) 5-[address] 81 MG 17:28: daily. Hospita enteric 03 l coated tablet docusate Yes 100mg Q.5D Take 100 Meth mary kate sodium 5-[address] (COLACE) 17:28: mouth 2 Hospit a 100 MG 03 (two) l capsule times a day. lisinopril Yes 20mg QD Take 20 mg M ethodi (PRINIVIL,Z 5-[address] ESTRIL) 20 17:28: daily. Hospi ta MG tablet 03 l No known No Univers medications [facility] Vital Signs Vital Name Observation Time Observation Value Comments Source Body height 2018-12-24 04:20:00 180.3 cm [facility] Body weight 2018-12-24 04:20:00 143.79 kg Universi [facility] BMI 2018-12-24 04:20:00 44.21 kg/m2 Universi ty [facility] Oxygen saturation in 2018-12-24 04:20:00 100 /min University of Arterial blood by [facility] Pulse oximetry Branch Heart rate 2018-12-24 04:20:00 87 /min Universi ty [facility] Body temperature 2018-12-24 04:20:00 36.56 [facility] [facility] Respiratory rate 2018-12-24 04:20:00 20 /min Univ [facility] Body height 2018-12-24 04:20:00 180.3 cm Universi [facility] Body weight 2018-12-24 04:20:00 143.79 [facility] BMI 2018-12-24 04:20:00 44.21 kg/m2 Universi [facility] Oxygen saturation in 2018-12-24 04:20:00 100 /min [facility] Arterial blood by [facility] Pulse oximetry Branch Heart rate 2018-12-24 04:20:00 87 /min Universi [facility] Body temperature 2018-12-24 04:20:00 36.56 Melida [facility] Respiratory rate 2018-12-24 04:20:00 20 /min [facility] Procedures This patient has no known procedures. Plan of Care Planned Activity Planned Date Details Comments Source Future Scheduled 2022-04-[address] [facility] Test 00:00:00 (12+) [code = Medical Center DEPRESSION SCREENING (12+)] Future Scheduled 2021-12-15 INFLUENZA VACCINE (#1) [facility] 00:00:00 [code = INFLUENZA Medical Ce nter VACCINE (#1)] Future Scheduled 2020-04-[address] [facility] [facility] 00:00:00 WELLNESS (YEAR 2 or Medical Center FIRST YEAR if no IPPE) [code = MEDICARE ANNUAL WELLNESS (YEAR 2 or FIRST YEAR if no IPPE)] Future Scheduled 2011-09-02 Lipid panel (procedure) [facility] Test 00:00:00 [code = 37892070] Medical Ce nter Future Scheduled 1995-09-02 DTAP/TDAP/TD VACCINES [facility] 00:00:00 (1 - Tdap) [code = Medical C enter DTAP/TDAP/TD VACCINES (1 - Tdap)] Future Scheduled 1994 HEPATITIS C SCREENING [facility] 00:00:00 [code = HEPATITIS C Medical Center SCREENING] Future Scheduled [address] [facility] Test 00:00:00 Counseling and Medical Cente r Screening (12+) [code = Tobacco Cessation Counseling and Screening (12+)] Future Scheduled 1977-03-04 COVID-19 VACCINE (#1) [facility] 00:00:00 [code = COVID-[address] VACCINE (#1)] Future Scheduled 1976 CT Colonography (combo) [facility] Test 00:00:00 [code = CT Colonography [facility] (combo)] Future Scheduled 1976 Screening for malignant [facility] Test 00:00:00 neoplasm of colon Medical Ce nter (procedure) [code = 024047156] Future Scheduled 1976 Screening for malignant [facility] Test 00:00:00 neoplasm of colon Medical Ce nter (procedure) [code = 018648491] Future Scheduled 1976 Screening for malignant [facility] Test 00:00:00 neoplasm of colon Medical Ce nter (procedure) [code = 794509657] Future Scheduled 1976 Screening for malignant [facility] Test 00:00:00 neoplasm of colon Medical Ce nter (procedure) [code = 768986677] Future Scheduled 1975 Sigmoidoscopy [code = [facility] 00:00:00 Sigmoidoscopy] Medical Cente r Encounters Start End Encounter Admission Attending Care Care Encounter Source Date/Time Date/Time Type Type Clinicians Facility Department ID 2019-08-15 Inpatient [facility] [id number] [facility] 20:12:00 [id number] 2018-12-23 2018-12-24 Emergency [facility] [id number] Univers 23:17:13 00:07:00 Chong Chahal [id number] i ty tavia Alejandra [id number] [facility] [id number] [facility] 084 Branch 2018-12-23 2018-12-[address] [facility] [id number] 23:17:13 00:07:00 Chong Chahal [id number] Holiday [id number] [place] [id number] Results Test Description Test Time Test Comments Results Result Comments Source PHOSPHORUS 2019-08-18 04:42:00 Test Item Value Reference Range Interpretation Comme nts PHOSPHORUS (BEAKER) (test code = 604) 3.7 mg/dL 2.3-4.7 Front Desk Manager ID - MARGARET [id number] 04:42:00 Test Item Value Reference Range Interpretation Comments MAGNESIUM (BEAKER) (test code = 1.7 mg/dL 1.6-2.6 627) Front Desk Manager ID - MARGARET LBASIC METABOLIC [id number] 04:42:00 Test Item Value Reference Range Interpretation [...] S NOT APPLICABLE FOR DIALYSIS PATIEN TS. Front Desk Manager ID - PATIENCESANGITA LCBC W/PLT COUNT & AUTO [id number] 04:28:00 Test Item Value Reference Range Interpretation [...] PERCENT (BEAKER) (test code = 2801) POCT-GLUCOSE [id number] 06:56:00 Test Item Value Reference Range Interpretation Comments POC-GLUCOSE METER 98 mg/dL 70-110 : TESTED A T [facility] 6720 (BEAKER) (test code = [place], 1538) [address]: Front Desk Manager/Techni sherri ID = [id number] for SOTERO HAYES [id number] 04:58:00 Test Item Value Reference Range Interpretation Comments PHOSPHORUS (BEAKER) (test code = 3.2 mg/dL 2.3-4.7 604) Front Desk Manager ID - SONAL [id number] 04:58:00 Test Item Value Reference Range Interpretation Comments MAGNESIUM (BEAKER) (test code = 1.8 mg/dL 1.6-2.6 627) Front Desk Manager ID - SONAL WBASIC METABOLIC [id number] 04:58:00 Test Item Value Reference Range Interpretation [...] S NOT APPLICABLE FOR DIALYSIS PATIEN TS. Front Desk Manager ID - SONAL WCBC W/PLT COUNT & AUTO [id number] 04:35:00 Test Item Value Reference Range Interpretation [...] (BEAKER) (test code = 2801) BASIC METABOLIC [id number] 11:27:00 Test Item Value Reference Range Interpretation [...] S NOT APPLICABLE FOR DIALYSIS PATIEN TS. Front Desk Manager ID - MICAH WPROTHROMBIN [id number] 05:26:00 Test Item Value Reference Range Interpretation [...] is 2.5-3.5 for patients wiht mechanical heart valves.CBC W/PLT COUNT & AUTO [id number] 05:04:00 Test Item Value Reference Range Interpretation [...] (BEAKER) (test code = 2801) BASIC METABOLIC [id number] 00:05:00 Test Item Value Reference Range Interpretation [...] S NOT APPLICABLE FOR DIALYSIS PATIEN TS. Front Desk Manager ID - PIAYA LPROTHROMBIN [id number] 23:57:00 Test Item Value Reference Range Interpretation [...] is 2.5-3.5 for patients wiht mechanical heart valves.LACTIC ACID, [id number] 23:56:00 Test Item Value Reference Range Interpretation Comments LACTATE BLOOD VENOUS (2) (BEAKER) 0.58 mmol/L 0.50-2.20 (test code = 2872) Front Desk Manager ID - PIAYA LCBC (HEMOGRAM ONLY)2019-08-15 [...]
[2022-05-27] MEDS ORDERED: ACETAMINOPHEN 325 MG TABLET ONE (19:17)
[2022-05-27] MEDS ORDERED: VANCOMYCIN 1 GM/VIAL ONE (19:18)
[2022-05-27] MEDS ORDERED: NA CHLORIDE 0.9% 500 ML ONE (19:18)
[2022-05-27 19:23] LABS: Absolute Lymphocytes (CBC) 0.6 K/uL (0.7-4.9); Hematocrit 35.5 % (39.6-49.0); Lymphocytes % 9.5 % (15.3-44.8); MCV 77.1 fL (80-100); MPV 7.3 fL (7.6-11.3)
[2022-05-27 19:36] LABS: Albumin 3.1 g/dL (3.4-5.0); Bilirubin Total 1.2 mg/dL (0.2-1.0); Potassium 3.7 mmol/L (3.5-5.1); Protein, Total 8.7 g/dL (6.4-8.2)
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
[2022-05-27 19:58] LABS: Blood Morphology Comment NOT SEEN (NOT SEEN); Platelet Estimate ADEQ
--- NOTE | 2022-05-27 20:07 | P.HP ---
Certification for Inpatient Patient admitted to: Inpatient With expected LOS: <2 Midnights Patient will require the following post-hospital care: None Practitioner: I am a practitioner with admitting privileges, knowledge of patient current condition, hospital course, and medical plan of care. Services: Services provided to patient in accordance with Admission requirements found in Title 42 Section 412.3 of the Code of Federal Regulations Patient History Date of Service: 05/27/22 Reason for admission: Cellulitus BLE History of Present Illness: Patient is a 46-year-old male with history of multiple small bowel obstructions & ventral hernias, hypertension, venous insufficiency of lower extremities, and obesity who presented to the emergency department with complaints of fever and pain/swelling of the lower extremities. He was noted to be tachycardic, tachypneic, and febrile upon arrival. Patient very unkempt, legs dirty, swollen with ulcerations/blisters present. Labs are significant for hemoglobin 11.9, hct 35.5, sodium 130, chloride 97. Ultrasound negative for DVT. In the emergency department, he was started on vancomycin. ED provider wishes to admit patient for further management. Allergies cabbage Allergy (Verified 02/10/19 02:54) Nausea/Vomiting No Known Drug Allergies Allergy (Verified 02/25/20 00:20) Unknown spinach Allergy (Verified 09/13/18 18:08) Nausea/Vomiting Home medications list reviewed: Yes Home Medications: Fluocinonide [Lidex] 1 appl TOP DAILY #1 tube 11/15/20 - Past Medical/Surgical History Diabetic: No -: History of testicular cancer -: History of small bowel obstruction -: Hypertension -: Large abdominal hernias -: obstructive sleep apnea -: Morbid obesity -: Varicose veins -: GERD -: Venous stasis with insufficiency of the lower extremity -: Lymphedema to the lower extremity -: Appendectomy -: Cholecystectomy -: Bowel repair secondary to bowel perforation -: Hernia mesh repair Psychosocial/ Personal History: The patient is single. He has 2 children. He is currently disabled. - Family History Father -: Heart disease - Social History Smoking Status: Current every day smoker Alcohol use: No CD- Drugs: No Caffeine use: Yes Place of Residence: [facility] Review of Systems General: Fever Musculoskeletal: Leg Pain, Pedal edema Physical Examination - Vital Signs Temperature: 100.4 F Blood Pressure: 142/86 Pulse: 111 Respirations: 18 Pulse Ox (%): 100 - Physical Exam General: Alert, In no apparent distress, Obese HEENT: Atraumatic, EOMI, Sclerae nonicteric Neck: Supple, 2+ carotid pulse no bruit Respiratory: Clear to auscultation bilaterally, Normal air movement Cardiovascular: Regular rate/rhythm, Normal S1 S2 Gastrointestinal: Normal bowel sounds, No tenderness Musculoskeletal: No tenderness Integumentary: Warmth, Other (thick, hardened, blistered/ulcerated bilateral shins) Neurological: Normal speech, Normal affect - Studies Laboratory Data (last 24 hrs) 05/27/22 19:03: Sodium 130 L, Potassium 3.7, BUN 14, Creatinine 1.03, Glucose 111 H, Total Bilirubin 1.2 H, AST 35, ALT 25, Alkaline Phosphatase 83 05/27/22 19:03: WBC 6.50, Hgb 11.9 L, Hct 35.5 L, Plt Count 191 Assessment and Plan - Problems (Diagnosis) (1) Venous stasis dermatitis of both lower extremities Current Visit: Yes Status: Acute (2) Morbid obesity with BMI of 40.0-44.9, adult Current Visit: Yes Status: Chronic (3) Obstructive sleep apnea Current Visit: Yes Status: Chronic (4) Anemia Current Visit: Yes Status: Chronic Qualifiers: Anemia type: unspecified type Qualified Code(s): D64.9 - Anemia, unspecified (5) Hyponatremia Current Visit: Yes Status: Acute (6) Venous stasis Current Visit: Yes Status: Chronic (7) Sepsis Current Visit: Yes Status: Acute Qualifiers: Sepsis type: sepsis due to unspecified organism Sepsis acute organ dysfunction status: without acute organ dysfunction Qualified Code(s): A41.9 - Sepsis, unspecified organism - Plan Patient is admitted for further management of lower extremity cellulitus. He does meet sepsis criteria but not severe sepsis or septic shock. Blood cultures obtained. Continue cefepime and vancomycin. Consult wound healing. Denies history of DM. Blood sugar is slightly elevated. Will check A1c and use sliding scale as needed. Patient also with anemia, likely iron deficiency. Will check iron studies, b12, folic acid. Monitor and replete electrolytes per protocol. Lovenox for VTE prophylaxis. Discharge Plan: Home Plan to discharge in: 48 Hours - Advance Directives Does patient have a Living Will: No Does patient have a Durable POA for Healthcare: No - Code Status/Comfort Care Code Status Assessed: Yes Code Status: Full Code Physician Review: Patient Assessed, Agree with Above Assessment and Plan Critical Care: No Time Spent Managing Pts Care (In Minutes): 50
[2022-05-27 20:08] LABS: SARS-COV-2 RT PCR NEGATIVE (NEGATIVE)
[2022-05-27] MEDS ORDERED: VANCOMYCIN 1 GM in NA CHLORIDE 0.9% 250 ML IVPB SCH (20:32)
[2022-05-27] MEDS ORDERED: HYDRALAZINE HCL 20 MG/ML VIAL IV PRN (20:32)
[2022-05-27] MEDS ORDERED: ONDANSETRON 4 MG/2 ML VIAL IV PRN (20:32)
--- NOTE | 2022-05-27 21:06 | RAD REPORT ---
EXAM DESCRIPTION: US - Extrem Venous W Compress Chris - 05/27/2022 8:37 pm CLINICAL HISTORY: SWELLING COMPARISON: No comparisonsExtremity Venous Uni Ltd dated 09/10/2018 TECHNIQUE: Real-time sonographic evaluation of the lower extremity deep venous systems was performed using color Doppler, grayscale, and compression. FINDINGS: Bilateral lower extremities. Normal compressibility, flow augmentation, phasic flow and spontaneous flow is identified in both the left and right lower extremity deep venous systems. No intraluminal filling defects seen. IMPRESSION: No DVT in either lower extremity.
[2022-05-27] MEDS ORDERED: VANCOMYCIN 1 GM in NA CHLORIDE 0.9% 250 ML IVPB ONE (22:00)
[2022-05-27] MEDS ORDERED: NA CHLORIDE 0.9% 250 ML ONE (22:42)
[2022-05-27] MEDS: HYDROCODONE/APAP 5/325 MG TAB PO PRN (22:48)
[2022-05-28 00:58] LABS: Renal Epithelial <5 /HPF (None Seen); Specific Gravity 1.027 (1.005-1.030); Urine Bacteria <20 /HPF (<20); Urine Bilirubin NEGATIVE (Negative); Urine Blood 2+ (Negative); Urine Clarity Clear (Clear); Urine Color Yellow (Yellow); Urine Glucose NEGATIVE (Negative); Urine Mucus Slight /HPF (None Seen); Urine Protein 1+ (Negative); Urine RBC 21-50 /HPF (None Seen); Urine Urobilinogen 4+ (Over) (Normal)
[2022-05-28] MEDS ORDERED: ACETAMINOPHEN 500 MG TAB PO PRN (01:00)
[2022-05-28] MEDS: CEFEPIME 1 GM in NA CHLORIDE 0.9% 100 ML IV SCH ×3 (02:52→20:44)
[2022-05-28 03:44] LABS: Absolute Lymphocytes (CBC) 0.7 K/uL (0.7-4.9); Hematocrit 33.3 % (39.6-49.0); Lymphocytes % 15.2 % (15.3-44.8); MPV 7.3 fL (7.6-11.3); RBC Red Blood Cell Count 4.27 M/uL (4.33-5.43)
[2022-05-28 04:16] LABS: Albumin 2.7 g/dL (3.4-5.0); Bilirubin Total 0.9 mg/dL (0.2-1.0); Magnesium 2.2 mg/dL (1.6-2.4); Phosphorus 3.7 mg/dL (2.5-4.9); Potassium 3.5 mmol/L (3.5-5.1); Thyroid Stimulating Hormone 2.06 uIU/mL (0.358-3.740)
[2022-05-28 04:17] LABS: Ferritin 165.6 ng/mL (26-388)
[2022-05-28] MEDS ORDERED: POTASSIUM CL SA 10 MEQ TAB PO ONE (07:40)
[2022-05-28] MEDS: ENOXAPARIN 40 MG/0.4 ML SQ SCH (08:56)
[2022-05-28] MEDS: VANCOMYCIN 2 GM in NA CHLORIDE 0.9% 500 ML IVPB SCH ×2 (09:49→21:13)
[2022-05-28] MEDS ORDERED: VANCOMYCIN 2 GM in NA CHLORIDE 0.9% 500 ML IVPB SCH (10:00)
--- NOTE | 2022-05-28 12:19 | P.PN ---
Subjective Date of Service: 05/28/22 Chief Complaint: Cellulitus BLE Patient denies any complaint except pain from the left leg. No recorded fever. Physical Examination - Vital Signs Temperature: 98.6 F Blood Pressure: 119/75 Pulse: 85 Respirations: 18 Pulse Ox (%): 100 - Studies Laboratory Data (last 24 hrs) 05/27/22 19:03: Sodium 130 L, Potassium 3.7, BUN 14, Creatinine 1.03, Glucose 111 H, Total Bilirubin 1.2 H, AST 35, ALT 25, Alkaline Phosphatase 83 05/27/22 19:03: WBC 6.50, Hgb 11.9 L, Hct 35.5 L, Plt Count 191 Assessment And Plan - Current Problems (Diagnosis) (1) Lymphedema of both lower extremities Current Visit: Yes Status: Acute (2) Cellulitis of left lower extremity Current Visit: Yes Status: Acute (3) Venous stasis dermatitis of both lower extremities Current Visit: Yes Status: Acute (4) Morbid obesity with BMI of 40.0-44.9, adult Current Visit: Yes Status: Chronic (5) Obstructive sleep apnea Current Visit: Yes Status: Chronic - Plan Physical Exam General: Alert, In no apparent distress, Obese HEENT: Atraumatic, EOMI, Sclerae nonicteric Neck: Supple, 2+ carotid pulse no bruit Respiratory: Clear to auscultation bilaterally, Normal air movement Cardiovascular: Regular rate/rhythm, Normal S1 S2 Gastrointestinal: Normal bowel sounds, No tenderness Musculoskeletal: Bilateral lower extremity lymphedema Integumentary: Warmth, bilateral lower extremity skin hyperkeratosis with papillomatosis growths, left lower extremity with areas of blistering with surrounding erythema on the saldaña. Neurological: No focal motor deficit Plan: Continue current antibiotics. Keep lower extremities elevated. Pain management as needed. Trial of IV Lasix. Follow cultures. Patient with a history of obstructive sleep apnea. He stated that he never used CPAP before. He is informed he needs to follow-up with pulmonary for arrangement for sleep study.
[2022-05-28] MEDS: FUROSEMIDE 40 MG/4 ML VIAL IV SCH (16:46)
[2022-05-28] MEDS: HYDROCODONE/APAP 5/325 MG TAB PO PRN (20:44)
[2022-05-28 21:26] VITALS: BMI 49.8
[2022-05-29 04:23] LABS: Potassium 4.1 mmol/L (3.5-5.1)
[2022-05-29] MEDS: FUROSEMIDE 40 MG/4 ML VIAL IV SCH ×2 (09:00→16:22)
[2022-05-29] MEDS: CEFEPIME 1 GM in NA CHLORIDE 0.9% 100 ML IV SCH (09:23)
[2022-05-29] MEDS: ENOXAPARIN 40 MG/0.4 ML SQ SCH (09:23)
[2022-05-29] MEDS: VANCOMYCIN 2 GM in NA CHLORIDE 0.9% 500 ML IVPB SCH (09:24)
--- NOTE | 2022-05-29 14:36 | P.DS ---
Admission Date: 05/27/22 Discharge Date: 05/29/22 Disposition: ROUTINE DISCHARGE Discharge Condition: FAIR Reason for Admission: Cellulitus BLE - Problems (1) Lymphedema of both lower extremities Current Visit: Yes Status: Acute (2) Cellulitis of left lower extremity Current Visit: Yes Status: Acute (3) Venous stasis dermatitis of both lower extremities Current Visit: Yes Status: Acute (4) Morbid obesity with BMI of 40.0-44.9, adult Current Visit: Yes Status: Chronic (5) Obstructive sleep apnea Current Visit: Yes Status: Chronic Brief History of Present Illness: Patient is a 46-year-old male with history of multiple small bowel obstructions & ventral hernias, hypertension, venous insufficiency of lower extremities, and obesity who presented to the emergency department with complaints of fever and pain/swelling of the lower extremities. He was noted to be tachycardic, tachypneic, and febrile upon arrival. Patient very unkempt, legs dirty, swollen with ulcerations/blisters present. Labs significant for hemoglobin 11.9, hct 35.5, sodium 130, chloride 97. Ultrasound negative for DVT. In the emergency department, he was started on vancomycin. Patient admitted for further management. Hospital Course: He was admitted to the medical floor and treated with IV vancomycin and cefepime. He was also treated with IV Lasix for lymphedema. He has no more fever during the hospital stay. Blood culture yielded no growth. No leukocytosis. Patient is ambulatory. He has bilateral lower extremity lymphedema with hyperpigmented hyperkeratosis and papillomatosis growth which is chronic. Patient tolerating diet, and currently asymptomatic. He is deemed stable for discharge. Vital Signs/Physical Exam: Temp Pulse Resp BP Pulse Ox 98.8 F 89 18 131/76 97 05/29/22 12:00 05/29/22 12:00 05/29/22 12:00 05/29/22 12:00 05/29/22 12:00 General: In no apparent distress, Oriented x3 HEENT: Mucous membr. moist/pink Neck: Supple, JVD not distended Respiratory: Clear to auscultation bilaterally, Normal air movement Cardiovascular: Regular rate/rhythm Gastrointestinal: Soft and benign, Non-distended Integumentary: No cyanosis Neurological: Normal strength at 5/5 x4 extr Laboratory Data at Discharge: WBC 4.50 K/uL (4.3-10.9) 05/28/22 03:03 Hgb 11.1 g/dL (13.6-17.9) L 05/28/22 03:03 Hct 33.3 % (39.6-49.0) L 05/28/22 03:03 Plt Count 175 K/uL (152-406) 05/28/22 03:03 Sodium 136 mmol/L (136-145) 05/29/22 03:03 Potassium 4.1 mmol/L (3.5-5.1) D 05/29/22 03:03 BUN 18 mg/dL (7-18) 05/29/22 03:03 Creatinine 0.90 mg/dL (0.70-1.30) 05/29/22 03:03 Glucose 110 mg/dL (74-106) H 05/29/22 03:03 Phosphorus 3.7 mg/dL (2.5-4.9) 05/28/22 03:03 Magnesium 2.2 mg/dL (1.6-2.4) 05/28/22 03:03 Total Bilirubin 0.9 mg/dL (0.2-1.0) 05/28/22 03:03 AST 32 U/L (15-37) 05/28/22 03:03 ALT 24 U/L (16-61) 05/28/22 03:03 Alkaline Phosphatase 71 U/L (45-117) 05/28/22 03:03 Triglycerides 107 mg/dL (<150) 05/28/22 03:03 Cholesterol 96 mg/dL (<200) 05/28/22 03:03 HDL Cholesterol 35 mg/dL (40-60) L 05/28/22 03:03 Cholesterol/HDL Ratio 2.74 05/28/22 03:03 Home Medications: Amox/Clavulanate [Augmentin 875-125 Tab] 1 each PO BID #24 tab 05/29/22 Codeine/APAP [Tylenol W/Codeine #3 tab] 1 tab PO Q6HP PRN #15 tab 05/29/22 Doxycycline Hyclate 100 mg PO BID #24 cap 05/29/22 Furosemide [Lasix] 40 mg PO DAILY #30 tab 05/29/22 New Medications: Codeine/APAP [Tylenol W/Codeine #3 tab] 1 tab PO Q6HP PRN #15 tab PRN Reason: Pain Amox/Clavulanate [Augmentin 875-125 Tab] 1 each PO BID #24 tab Doxycycline Hyclate 100 mg PO BID #24 cap Furosemide [Lasix] 40 mg PO DAILY #30 tab Diet: AHA Activity: Fall precautions Followup: NONE,NONE [Primary Care Provider] - 1-2 Weeks Time spent managing pt's care (in minutes): 33
[2022-05-29 21:01] VITALS: O2SAT 95
[2022-05-29 21:22] VITALS: BP 159/84; TEMP 98.2
== END 2022-05-29 21:07 | disposition home or self-care (01) | DRG 872 ==
LOC: ER 18:02 → ERHOLD 19:55 → 2ND 20:32
PROVIDERS: ADMIT Internal Medicine; ATTEND Internal Medicine
DX: A41.9 Sepsis, unspecified organism (principal); L03.116 Cellulitis of left lower limb; Z68.42 Body mass index [BMI] 45.0-49.9, adult; E87.1 Hypo-osmolality and hyponatremia; E66.01 Morbid (severe) obesity due to excess calories; I10 Essential (primary) hypertension; I87.2 Venous insufficiency (chronic) (peripheral); D50.9 Iron deficiency anemia, unspecified; I89.0 Lymphedema, not elsewhere classified; K21.9 Gastro-esophageal reflux disease without esophagitis; G47.33 Obstructive sleep apnea (adult) (pediatric); F17.200 Nicotine dependence, unspecified, uncomplicated; Z59.00 Homelessness unspecified; Z90.49 Acquired absence of other specified parts of digestive tract; Z85.47 Personal history of malignant neoplasm of testis; Z28.310 Unvaccinated for COVID-19; Z91.018 Allergy to other foods; Z79.899 Other long term (current) drug therapy; Z20.822 Contact with and (suspected) exposure to COVID-19
CPT/HCPCS: 0240U; 36415; 80048; 80053; 80061; 80202; 81001; 82607; 82728; 82747; 83036; 83540; 83605; 83735; 83880; 84100; 84443; 84466; 85025; 87040; 93970; 96374; 99285; J0692; J1650; J1940; J3370; J7040; J7050

== ENCOUNTER 2022-08-05 10:23 | Inpatient (IN) | payer OTHER ==
--- OUTSIDE RECORDS SUMMARY | 2022-08-05 10:27 | XMS REPORT | Continuity of Care Document ---
:1975 Author Organization [facility] t Address [address] [place] [address] Care Team Providers Name Role Phone Asked, None Given Primary Care Physician Unavailable RAYO QUINN Attending Clinician Unavailable aMrcio SÁNCHEZ, Chong Pulliam Attending Clinician MARLENE ANDRADE Admitting Clinician Unavailable Payers Payer Name Policy Type Policy Number Effective Date Expiration Date S ource Problems Condition Condition Condition Status Onset Resolution Last Treating Co mments Source Name Details Category Date Date Treatment Clinician Date Small Small Disease Recurre [facility] bowel bowel nce [address] [facility] obstructio obstructio 00:00: Me dical n n 00 Center No known No known Disease Unive rs active active ity of problems problems [facility] Allergies, Adverse Reactions, Alerts Allergy Allergy Status Severity Reaction(s) Onset Inactive Treating Comm ents Source Name Type Date Date Clinician NO KNOWN Allergy Active [facility] Social History Social Habit Start Date Stop Date Quantity Comments Source Tobacco use and 2015-09-05 2015-09-05 Smokeless tobacco Me [facility] exposure 00:00:00 00:00:00 non-user Hospital Alcohol intake 2015-09-05 2015-09-05 Current [facility] [facility] 00:00:00 00:00:00 non-drinker of Hospital alcohol (finding) Sex Assigned At [address] [facility] [address] [facility] Smoking Status Start Date Stop Date Source Unknown if ever smoked [facility] Never smoked tobacco [facility] Medications Ordered Filled Start Stop Current Ordering Indication Dosage Frequency Signature Comments Components Source Medication Medication Date Date Medication? Clinician (SIG) Name Name petrolatum- 2020-0 Yes 1{appli Apply [address] [facility] mineral oil 5-04 cation} [facility] topical 00 topically Center ointment as needed (as needed for leg dryness). petrolatum- 2020-0 Yes 1{appli Apply [address] [facility] mineral oil 5-04 cation} [facility] 00:[facility]: n Medical topical 00 topically Center ointment as needed (as needed for leg dryness). aspirin 0 Yes 81mg QD Take 81 mg Meth mary kate (ECOTRIN) 5-[address] 81 MG 22:28: daily. Hospita enteric 03 l coated tablet docusate 0 Yes 100mg Q.5D Take 100 Meth mary kate sodium 5-[address] (COLACE) 22:28: mouth 2 Hospit a 100 MG 03 (two) l capsule times a day. lisinopril Yes 20mg QD Take 20 mg M ethodi (PRINIVIL,Z 5-[address] ESTRIL) 20 22:28: daily. Hospi ta MG tablet 03 l lisinopril Yes 20mg QD Take 20 mg M ethodi (PRINIVIL,Z 5-[address] ESTRIL) 20 17:28: daily. Hospi ta MG tablet 03 l aspirin 0 Yes 81mg QD Take 81 mg Meth mary kate (ECOTRIN) 5-[address] 81 MG 17:28: daily. Hospita enteric 03 l coated tablet docusate 0 Yes 100mg Q.5D Take 100 Meth mary kate sodium 5-[address] (COLACE) 17:28: mouth 2 Hospit a 100 MG 03 (two) l capsule times a day. No known No Univers medications [facility] Vital Signs Vital Name Observation Time Observation Value Comments Source Body height 2018-12-24 04:20:00 180.3 cm Universi ty [facility] Body weight 2018-12-24 04:20:00 143.79 kg Universi ty [facility] BMI 2018-12-24 04:20:00 44.21 kg/m2 Universi ty [facility] Oxygen saturation in 2018-12-24 04:20:00 100 /min [facility] of Arterial blood by [facility] Pulse oximetry [facility] Heart rate 2018-12-24 04:20:00 87 /min Universi ty [facility] Body temperature 2018-12-24 04:20:00 36.56 [place] [facility] Respiratory rate 2018-12-24 04:20:00 20 /min [facility] Body height 2018-12-24 04:20:00 180.3 cm Universi ty [facility] Body weight 2018-12-24 04:20:00 143.79 kg Universi ty [facility] BMI 2018-12-24 04:20:00 44.21 kg/m2 Universi ty [facility] Oxygen saturation in 2018-12-24 04:20:00 100 /min [facility] Arterial blood by [facility] Pulse oximetry [facility] Heart rate 2018-12-24 04:20:00 87 /min Universi ty [facility] Body temperature 2018-12-24 04:20:00 36.56 [place] [facility] Respiratory rate 2018-12-24 04:20:00 20 /min [facility] Procedures This patient has no known procedures. Plan of Care Planned Activity Planned Date Details Comments Source Future Scheduled 2022-12-[address] [facility] 00:00:00 (Season Ended) [code = [facility] INFLUENZA VACCINE (Season Ended)] Future Scheduled 2022-04-[address] [facility] 00:00:00 (12+) [code = Medical Center DEPRESSION SCREENING (12+)] Future Scheduled 2022-04-[address] [...] FIRST YEAR if no IPPE)] Future Scheduled 2020-04-[address] [facility] [facility] 00:00:00 WELLNESS (YEAR 2 or Medical Center FIRST YEAR if no IPPE) [code = MEDICARE ANNUAL WELLNESS (YEAR 2 or FIRST YEAR if no IPPE)] Future Scheduled 2011-09-02 Lipid panel (procedure) [facility] 00:00:00 [code = 94911115] Medical Ce nter Future Scheduled 2011-09-02 Lipid panel (procedure) [facility] 00:00:00 [code = 02742448] Medical Ce nter Future Scheduled 1995-09-02 DTAP/TDAP/TD VACCINES [facility] 00:00:00 (1 - Tdap) [code = Medical C enter DTAP/TDAP/TD VACCINES (1 - Tdap)] Future Scheduled 1995-09-02 DTAP/TDAP/TD VACCINES [facility] 00:00:00 (1 - Tdap) [code = Medical C enter DTAP/TDAP/TD VACCINES (1 - Tdap)] Future Scheduled 1994 HEPATITIS C SCREENING [facility] 00:00:00 [code = HEPATITIS C Medical Center SCREENING] Future Scheduled 1994 HEPATITIS C [facility]CRE[facility]ING [facility] 00:00:00 [code = HEPATITIS C Medical Center SCREENING] Future Scheduled [address] [facility] Test 00:00:00 Counseling and Medical Cente r Screening (12+) [code = Tobacco Cessation Counseling and Screening (12+)] Future Scheduled [address] [facility] Test 00:00:00 Counseling and Medical Cente r Screening (12+) [code = Tobacco Cessation Counseling and Screening (12+)] Future Scheduled 1977-03-04 COVID-19 VACCINE (#1) [facility] 00:00:00 [code = COVID-[address] VACCINE (#1)] Future Scheduled 1977-03-04 COVID-19 VACCINE (#1) [facility] 00:00:00 [code = COVID-[address] VACCINE (#1)] Future Scheduled 1976 CT Colonography (combo) [facility] 00:00:00 [code = CT Colonography [facility] (combo)] Future Scheduled 1976 Screening for malignant [facility] Test 00:00:00 neoplasm of colon Medical Ce nter (procedure) [code = 222398544] Future Scheduled [address] Screening for malignant [facility] Test 00:00:00 neoplasm of colon Medical Ce nter (procedure) [code = 704971124] Future Scheduled [address] Screening for malignant [facility] Test 00:00:00 neoplasm of colon Medical Ce nter (procedure) [code = 575894271] Future Scheduled [address] Screening for malignant [facility] Test 00:00:00 neoplasm of colon Medical Ce nter (procedure) [code = 740369540] Future Scheduled 1975 Sigmoidoscopy [code = [facility] Sigmoidoscopy] Medical Cente r Future Scheduled 1976 CT Colonography (combo) [facility] 00:00:00 [code = CT Colonography [facility] (combo)] Future Scheduled 1976 Screening for malignant [facility] Test 00:00:00 neoplasm of colon Medical Ce nter (procedure) [code = 728058410] Future Scheduled 1976 Screening for malignant [facility] Test 00:00:00 neoplasm of colon Medical Ce nter (procedure) [code = 392269176] Future Scheduled [address] Screening for malignant [facility] Test 00:00:00 neoplasm of colon Medical Ce nter (procedure) [code = 697076748] Future Scheduled 1976 Screening for malignant [facility] Test 00:00:00 neoplasm of colon Medical Ce nter (procedure) [code = 332095700] Future Scheduled 1975 Sigmoidoscopy [code = [facility] 00:[facility]:00 Sigmoidoscopy] Medical Cente r Encounters Start End Encounter Admission Attending Care Care Encounter Source Date/Time Date/Time Type Type Clinicians Facility Department ID 2019-08-15 [id number] 20:12:00 [id number] 2018-12-23 2018-12-24 Emergency Marcio, [facility] [id number] [facility] 23:17:13 00:07:00 Chong Chahal [id number] i ty of [place] [id number] [facility] [id number] [facility] [address] 2018-12-23 2018-12-24 Emergency Marcio, [facility] [id number] 23:17:13 00:07:00 Chong Chahal [id number] [place] [id number] [place] [id number] Results Test Description Test Time Test Comments Results Result Comments Source PHOSPHORUS 2019-08-18 04:42:00 Test Item Value Reference Range Interpretation Comme nts PHOSPHORUS (BEAKER) (test code = 604) 3.7 mg/dL 2.3-4.7 Air Sampling And Monitoring ID - MARGARET [id number] 04:42:00 Test Item Value Reference Range Interpretation Comments MAGNESIUM (BEAKER) (test code = 1.7 mg/dL 1.6-2.6 627) Air Sampling And Monitoring ID - MARGARET LBASIC METABOLIC [id number] 04:42:00 Test Item Value Reference Range Interpretation [...] S NOT APPLICABLE FOR DIALYSIS PATIEN TS. Air Sampling And Monitoring ID - PIAYA LCBC W/PLT COUNT & AUTO [id number] 04:28:00 Test Item Value Reference Range Interpretation [...] PERCENT (BEAKER) (test code = 2801) POCT-GLUCOSE [id number] 06:56:00 Test Item Value Reference Range Interpretation Comments POC-GLUCOSE METER 98 mg/dL 70-110 : TESTED A T [facility] (BEAKER) (test code = YONY Agustín [place], 1538) [address]: Air Sampling And Monitoring/Techni sherri ID = [id number] for SOTERO HAYES [id number] 04:58:00 Test Item Value Reference Range Interpretation Comments PHOSPHORUS (BEAKER) (test code = 3.2 mg/dL 2.3-4.7 604) Air Sampling And Monitoring ID - SONAL [id number] 04:58:00 Test Item Value Reference Range Interpretation Comments MAGNESIUM (BEAKER) (test code = 1.8 mg/dL 1.6-2.6 627) Air Sampling And Monitoring ID - SONAL WBASIC METABOLIC [id number] 04:58:00 Test Item Value Reference Range Interpretation [...] S NOT APPLICABLE FOR DIALYSIS PATIEN TS. Air Sampling And Monitoring ID - SONAL WCBC W/PLT COUNT & AUTO [id number] 04:35:00 Test Item Value Reference Range Interpretation [...] (BEAKER) (test code = 2801) BASIC METABOLIC [id number] 11:27:00 Test Item Value Reference Range Interpretation [...] S NOT APPLICABLE FOR DIALYSIS PATIEN TS. Air Sampling And Monitoring ID - MICAH WPROTHROMBIN [id number] 05:26:00 Test Item Value Reference Range Interpretation [...] mechanical heart valves.CBC W/PLT COUNT & AUTO [id number] 05:04:00 Test Item Value Reference Range Interpretation [...] (BEAKER) (test code = 2801) BASIC METABOLIC [id number] 00:05:00 Test Item Value Reference Range Interpretation [...] S NOT APPLICABLE FOR DIALYSIS PATIEN TS. Air Sampling And Monitoring ID - PIAYA LPROTHROMBIN [id number] 23:57:00 Test Item Value Reference Range Interpretation [...] for patients wiht mechanical heart valves.LACTIC ACID, [id number] 23:56:00 Test Item Value Reference Range Interpretation Comments LACTATE BLOOD VENOUS (2) (BEAKER) 0.58 mmol/L 0.50-2.20 (test code = 2872) Air Sampling And Monitoring ID - PIAYA LCBC (HEMOGRAM ONLY)2019-08-15 23:43:00 [...]
[2022-08-05] MEDS ORDERED: MORPHINE 4 MG/ML SYR ONE (10:39)
[2022-08-05] MEDS ORDERED: ONDANSETRON 4 MG/2 ML VIAL ONE (10:40)
[2022-08-05] MEDS ORDERED: NA CHLORIDE 0.9% 1,000 ML ONE (10:40)
[2022-08-05 10:57] LABS: Absolute Lymphocytes (CBC) 0.9 K/uL (0.7-4.9); Hematocrit 43.2 % (39.6-49.0); MCV 78.8 fL (80-100); MPV 7.6 fL (7.6-11.3); RBC Red Blood Cell Count 5.48 M/uL (4.33-5.43)
[2022-08-05 11:07] LABS: Bilirubin Total 1.3 mg/dL (0.2-1.0); Potassium 3.9 mEq/L (3.5-5.1); Protein, Total 10.2 g/dL (6.4-8.2)
--- NOTE | 2022-08-05 11:43 | RAD REPORT ---
EXAM DESCRIPTION: CTAbdomen Pelvis W Contrast - 08/05/2022 11:24 am CLINICAL HISTORY: ABD PAIN COMPARISON: Abdomen Pelvis W in the Contrast dated 02/24/2020; Abdomen Pelvis W Contrast dated ; Abdomen Pelvis W Contrast dated 02/09/2019; Abdomen Pelvis W Contrast dated 11/21/2018 TECHNIQUE: CT of the abdomen and pelvis was performed with IV contrast. All CT scans are performed using dose optimization technique as appropriate and may include automated exposure control or mA/KV adjustment according to patient size. FINDINGS: Lower chest: No acute abnormality. Liver: No acute abnormality or suspicious lesions. Biliary: No biliary ductal dilatation. Stomach: No significant focal abnormality. Duodenum: No significant focal abnormality. Pancreas: No significant abnormality. Spleen: No significant abnormality. Adrenal: No suspicious lesions. Kidney/ureter: No hydronephrosis. No renal calculi. Retroperitoneum: Prior retroperitoneal lymph node dissection. Vascular: No aneurysm. Bowel: Segments of dilated small bowel noted. Peritoneum: Multiple bowel containing ventral hernias identified. 1 of the ventral hernias is a Richt er type containing ventral aspect of the small bowel wall. Another 2 is a narrow neck small bowel con taining hernia. A right lateral ventral hernia is present which contains colon. A second Saenz type hernia containing colon is present. Bladder: Grossly unremarkable. Reproductive: No adnexal masses. Bones: No acute fracture. Grade 2 anterolisthesis of L5 on S1. Other: n/a IMPRESSION: Numerous abdominal wall hernias including two Saenz type hernias, one colon containing lateral ventral hernia, and several small bowel containing ventral hernias. Several segments of smal l bowel are dilated. A narrow neck ventral hernia in the left abdominal wall likely results in either a partial or early high grade obstruction. A second small bowel containing ventral hernia more infer iorly also has proximal small bowel dilatation and could reflect either a partial or early high grade obstruction. These findings have been present on prior exams. No pneumatosis, perforation, or portal venous gas identified. Could consider repeat CT with long oral prep with Gastrograffin which could b oth be diagnostic and possibly therapeutic.
[2022-08-05 11:58] LABS: SARS-CoV-2 Antigen Rapid Res Negative (Negative)
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
[2022-08-05] MEDS ORDERED: ONDANSETRON 4 MG/2 ML VIAL IV PRN (13:32)
--- NOTE | 2022-08-05 13:39 | P.HP ---
Certification for Inpatient Patient admitted to: Inpatient With expected LOS: >2 Midnights Patient will require the following post-hospital care: None Practitioner: I am a practitioner with admitting privileges, knowledge of patient current condition, hospital course, and medical plan of care. Services: Services provided to patient in accordance with Admission requirements found in Title 42 Section 412.3 of the Code of Federal Regulations Patient History Date of Service: 08/05/22 Reason for admission: Small bowel obstruction History of Present Illness: Patient is a 46-year-old gentleman who came to the hospital with a small bowel obstruction. Patient is well-known to me from multiple prior admissions in the past. When patient was a child he had testicular cancer and spent a lot of time in [facility] getting treated for the testicular cancer. Patient has been in and out of hospitals most of his life. Patient also with severe lymp hedema. Patient has multiple abdominal hernias. Patient has had numerous surgeries performed in the past. Patient had CT imaging which revealed possible incarcerated hernia. Seen by general surgery and recommended n.p.o. at this time. Patient also with wounds to the bilateral lower extremity. We will continue with antibiotic therapy. Wound healing center to see the patient as well. Patient will be admitted to the hospital for further evaluation. Allergies cabbage Allergy (Verified 02/10/19 02:54) Nausea/Vomiting No Known Drug Allergies Allergy (Verified 02/25/20 00:20) Unknown spinach Allergy (Verified 09/13/18 18:08) Nausea/Vomiting Home Medications: Amox/Clavulanate [Augmentin 875-125 Tab] 1 each PO BID #24 tab 05/29/22 Codeine/APAP [Tylenol W/Codeine #3 tab] 1 tab PO Q6HP PRN #15 tab 05/29/22 Doxycycline Hyclate 100 mg PO BID #24 cap 05/29/22 Furosemide [Lasix] 40 mg PO DAILY #30 tab 05/29/22 - Past Medical/Surgical History Diabetic: No -: History of testicular cancer -: History of small bowel obstruction -: Hypertension -: Large abdominal hernias -: obstructive sleep apnea -: Morbid obesity -: Varicose veins -: GERD -: Venous stasis with insufficiency of the lower extremity -: Lymphedema to the lower extremity -: Hypertension -: Cellulitis -: Appendectomy -: Cholecystectomy -: Bowel repair secondary to bowel perforation -: Hernia mesh repair Psychosocial/ Personal History: The patient is single. He has 2 children. He is currently disabled. - Family History Father Medical History: Heart disease - Social History Smoking Status: Former smoker Alcohol use: No CD- Drugs: No Caffeine use: Yes Review of Systems 10-point ROS is otherwise unremarkable Physical Examination - Vital Signs Temperature: 98 F Blood Pressure: 140/80 Pulse: 88 Respirations: 18 Pulse Ox (%): 96 - Physical Exam General: Alert, In no apparent distress, Oriented x3 HEENT: Atraumatic, PERRLA, Mucous membr. moist/pink, EOMI, Sclerae nonicteric Neck: Supple, 2+ carotid pulse no bruit, No LAD, Without JVD or thyroid abnormality Respiratory: Clear to auscultation bilaterally, Normal air movement Cardiovascular: Regular rate/rhythm, Normal S1 S2, No murmurs Gastrointestinal: No rebound, No guarding, Other (Large abdominal hernia), Absent bowel sounds, Tenderness Musculoskeletal: No clubbing, No tenderness, Swelling Integumentary: Erythema, Warmth, Other (Discoloration of the bilateral lower extremities) Neurological: Normal speech, Normal tone, Sensation intact, Cranial nerves 3-12 intact, Normal affect, Abnormal gait, Abnormal strength Lymphatics: No axilla or inguinal lymphadenopathy - Studies Laboratory Data (last 24 hrs) 08/05/22 10:38: Sodium 135 L, Potassium 3.9, BUN 19 H, Creatinine 1.26, Glucose 118 H, Total Bilirubin 1.3 H, AST 18, ALT 26, Alkaline Phosphatase 124 H, Lipase 20 08/05/22 10:38: WBC 7.00, Hgb 14.3, Hct 43.2, Plt Count 290 Microbiology Data (last 24 hrs): 08/05/22 11:38 Nasopharnyx Influenza Type A Antigen Screen - Final 08/05/22 11:38 Nasopharnyx Influenza Type B Antigen Screen - Final Assessment & Plan - Problems (Diagnosis) (1) Abdominal hernia Onset Date: 03/15/17 Current Visit: No Status: Acute Qualifiers: (2) Abdominal pain Onset Date: 01/04/17 Current Visit: No Status: Acute Qualifiers: (3) Small bowel obstruction Current Visit: No Status: Acute (4) GERD (gastroesophageal reflux disease) Current Visit: No Status: Chronic Qualifiers: (5) Morbid obesity with BMI of 40.0-44.9, adult Current Visit: No Status: Chronic (6) Obstructive sleep apnea Current Visit: No Status: Chronic (7) Lymphedema Current Visit: Yes Status: Acute (8) Venous stasis dermatitis of both lower extremities Current Visit: No Status: Acute (9) Venous stasis Current Visit: No Status: Chronic - Plan Plan: 1. IV fluids 2. Pain control 3. No NG tube at this time. No nausea and vomiting. Continue with n.p.o. 4. Surgery consultation appreciated 5. IV antibiotics 6. Wound care 7. Out of bed and ambulate 8. Patient is homeless 9. GI DVT prophylaxis Discharge Plan: Home Plan to discharge in: Greater than 2 days - Advance Directives Does patient have a Living Will: No Does patient have a Durable POA for Healthcare: No - Code Status/Comfort Care Code Status Assessed: Yes Code Status: Full Code Critical Care: No Time Spent Managing PTS Care (In Minutes): 45
[2022-08-05 15:35] VITALS: O2SAT 98
[2022-08-05 16:44] VITALS: BMI 46.7
[2022-08-05] MEDS: NA CHLORIDE 0.9% 1,000 ML IV SCH (16:45)
[2022-08-06 03:31] LABS: Absolute Lymphocytes (CBC) 1.2 K/uL (0.7-4.9); Hematocrit 38.3 % (39.6-49.0); Lymphocytes % 24.3 % (15.3-44.8); MCV 79.7 fL (80-100); MPV 7.8 fL (7.6-11.3); Protime INR 1.13; RBC Red Blood Cell Count 4.81 M/uL (4.33-5.43)
[2022-08-06 03:44] LABS: Albumin 3.1 g/dL (3.4-5.0); Bilirubin Total 1.1 mg/dL (0.2-1.0); Phosphorus 3.3 mg/dL (2.5-4.9); Potassium 3.9 mEq/L (3.5-5.1); Protein, Total 8.4 g/dL (6.4-8.2)
[2022-08-06] MEDS: HYDROMORPHONE HCL 1 MG/ML INJ IV PRN ×3 (07:59→20:42)
--- NOTE | 2022-08-06 08:33 | RAD REPORT ---
EXAM DESCRIPTION: RAD - Abdomen Acute Series - 08/06/2022 6:50 am CLINICAL HISTORY: SBO COMPARISON: Abdomen 1 View (KUB) dated 11/15/2020; Abdomen 1 View (KUB) dated 02/26/2020; Chest Single View dated 08/15/2019; Abdomen Acute Series dated 02/10/2019; Abdomen Pelvis W Contrast dated 023 FINDINGS: The lungs are grossly clear. No subdiaphragmatic free air. The heart is normal in size. Surgical clips are present along the central abdomen. Mild gaseous distention of several bowel loops in the right abdomen noted, mildly improved. IMPRESSION: Mild improvement in bowel obstruction pattern since prior CT.
[2022-08-06] MEDS ORDERED: KCL 20 MEQ/100 mL IVPB 20 MEQ/100 ML BAG IV ONE (09:00)
[2022-08-06] MEDS: ENOXAPARIN 40 MG/0.4 ML SQ SCH (09:19)
[2022-08-06] MEDS: NA CHLORIDE 0.9% 1,000 ML IV SCH ×3 (10:00→20:43)
--- NOTE | 2022-08-06 13:46 | CON ---
Date of Consultation: 08/06/2022 Reason For Service: Small bowel obstruction. History Of Present Illness: This is the case of a 46-year-old, known by the Surgical Service due to history of multiple ventral hernias and history of on and off bowel obstruction. He has been stent i n the past to [facility] to repair these hernias, but he has not done it yet. He comes after ea ting a lot of beans and then after that developed abdominal pain, even though the CAT scan did not sh ow any difference from the previous CT scans before. He still has some small bowel distention and po ssibility of small bowel obstruction was contemplated, so the patient was admitted for bowel rest and a surgical consult was obtained. Today, he denies any nausea, vomiting, any dysuria, hematuria, hem atochezia, or melena. He is passing gas. Allergies: INCLUDE CABBAGE. Past Medical Problems: Includes history of multiple hernias, small bowel obstructions, hypertension, morbid obesity, obstructive sleep apnea, varicose veins, GERD, testicular cancer, lymphedema of lowe r extremities. Past Surgical History: Includes appendectomy, cholecystectomy, bowel repair due to perforations, her srikanth repair in the past with mesh. Social History: He does not drink alcohol. He smokes occasionally. He was advised the importance o f smoking cessation. Review of Systems: Today, no nausea, vomiting. He is passing flatus. Abdominal pain is better. Physical Examination: General: The patient awake, alert. HEENT: Pupils are equal and reactive. Anicteric. Neck: Supple. Chest: Clear. Heart: S1, S2. Abdomen: Soft and depressible. No guarding or rebound. No peritoneal signs. The patient has multi ple large hernias, . Rectal: Deferred. Extremity: Venous stasis disease. He was advised the importance of the compression. Laboratory Data: Blood work shows WBC count of 7, INR of 1.13, potassium 3.9, glucose 118. CT scan of the abdomen and pelvis and abdominal x-rays for this morning discussed with the patient. Although , there are no major changes from previous CT scan still, we gave him the advised to discuss with the tertiary center for options that may have been repaired of this hernia since they are high risk for this institution. Assessment: This is a 46-year-old patient with morbid obesity, multiple medical problems, multiple v entral hernias, previously repaired, they are more this time. He lost the right we advise d him and the past, discussed the case with tertiary center to see what options we have to diminish t he chance of emergent surgery in the future. This patient at this moment is having flatus and has no peritonitis and he feels a lot better. X-rays shows a lot better. No guarding or rebound. So, we might start with some liquid diet and once again explained to him how high risk candidate he is for s urgery at this institution, but we encouraged him to once again go to a tertiary center facility wher e they may have the expertise and the help to a deal with this kind of situation. ALEXANDER/MARTINEZ Voice ID: [id number] Report ID: [id number]
--- NOTE | 2022-08-07 05:29 | P.PN ---
Subjective Date of Service: 08/06/22 Subjective: Improving Patient is doing better. Go ahead and start him on a clear liquid diet. General surgery consultation appreciated. Wound healing consultation pending. Antibiotics but if no fever and no white count can probably discontinue. Review of Systems 10-point ROS is otherwise unremarkable Physical Examination - Vital Signs Temperature: 98 F Blood Pressure: 140/80 Pulse: 88 Respirations: 18 Pulse Ox (%): 96 - Physical Exam General: Alert, In no apparent distress, Oriented x3 Respiratory: Clear to auscultation bilaterally, Normal air movement Cardiovascular: Regular rate/rhythm, Normal S1 S2 Gastrointestinal: Normal bowel sounds, Soft and benign, Non-distended, No tenderness Musculoskeletal: Tenderness Integumentary: Tenderness/swelling, Erythema Neurological: Normal speech, Normal tone, Normal affect - Studies Medications List Reviewed: Yes Assessment & Plan - Problems (Diagnosis) (1) Abdominal hernia Onset Date: 03/15/17 Current Visit: No Status: Acute Qualifiers: (2) Abdominal pain Onset Date: 01/04/17 Current Visit: No Status: Acute Qualifiers: (3) Small bowel obstruction Current Visit: No Status: Acute (4) GERD (gastroesophageal reflux disease) Current Visit: No Status: Chronic Qualifiers: (5) Morbid obesity with BMI of 40.0-44.9, adult Current Visit: No Status: Chronic (6) Obstructive sleep apnea Current Visit: No Status: Chronic (7) Lymphedema Current Visit: Yes Status: Acute (8) Venous stasis dermatitis of both lower extremities Current Visit: No Status: Acute (9) Venous stasis Current Visit: No Status: Chronic (10) B12 deficiency Current Visit: Yes Status: Acute - Plan Plan: Continue with plan of care as mentioned below: 1. IV fluids; will Hep-Lock IV if tolerating clear liquids and will advance to full liquids 2. Pain control 3. No NG tube at this time. No nausea and vomiting. Continue with n.p.o. 4. Surgery consultation appreciated 5. IV antibiotics 6. Wound care 7. Out of bed and ambulate 8. Patient is homeless 9. GI DVT prophylaxis Discharge Plan: Home Plan to discharge in: Greater than 2 days - Advance Directives Does patient have a Living Will: No Does patient have a Durable POA for Healthcare: No - Code Status/Comfort Care Code Status: Full Code Critical Care: No Time Spent Managing PTS Care (In Minutes): 35
[2022-08-07] MEDS: NA CHLORIDE 0.9% 1,000 ML IV SCH ×2 (06:00→17:25)
[2022-08-07 06:42] LABS: Hematocrit 37.5 % (39.6-49.0); Lymphocytes % 22.8 % (15.3-44.8); MCV 79.2 fL (80-100); MPV 7.6 fL (7.6-11.3); RBC Red Blood Cell Count 4.73 M/uL (4.33-5.43)
[2022-08-07 06:52] LABS: Albumin 3.1 g/dL (3.4-5.0); Bilirubin Total 0.6 mg/dL (0.2-1.0); Magnesium 1.8 mg/dL (1.6-2.4); Potassium 4.8 mEq/L (3.5-5.1); Protein, Total 8.3 g/dL (6.4-8.2)
--- NOTE | 2022-08-07 08:41 | RAD REPORT ---
EXAM DESCRIPTION: RAD - Abdomen W Erect - 08/07/2022 6:16 am CLINICAL HISTORY: SBO Pain COMPARISON: Abdomen W Erect dated 02/13/2019 FINDINGS: There continues to be significant fecal retention is well as gaseous distention of bowel l oops. There is significant left lower quadrant bowel gas distention seen presumably sigmoid colon. No suspicious calcifications. Postsurgical clips are present. IMPRESSION: Significant fecal retention and distention the bowel loops is present in the abdomen. A well organized pattern is not seen on today's study.
[2022-08-07] MEDS ORDERED: PIPER TAZO 3.375 GM in NA CHLORIDE 0.9% 100 ML IV SCH (09:00)
[2022-08-07] MEDS: CYANOCOBALAMIN 1000MCG/ML INJ IM SCH (09:00)
[2022-08-07] MEDS: ENOXAPARIN 40 MG/0.4 ML SQ SCH (09:00)
--- NOTE | 2022-08-07 10:50 | P.PN ---
Subjective Date of Service: 08/07/22 Chief Complaint: Small bowel obstruction No acute events overnight. His abdominal pain is improved compared to yesterday. He denies any nausea/vomiting. He was able to tolerate a clear liquid diet today. Will advance as tolerated. He must be tolerating a GI soft diet prior to discharge home per Dr. Child. Review of Systems 10-point ROS is otherwise unremarkable Gastrointestinal: Abdominal Pain (improved) Physical Examination - Vital Signs Temperature: 98.0 F Blood Pressure: 135/87 Pulse: 63 Respirations: 17 Pulse Ox (%): 96 - Physical Exam General: Alert, In no apparent distress, Oriented x3 HEENT: Atraumatic, Mucous membr. moist/pink, Sclerae nonicteric Neck: JVD not distended Respiratory: Clear to auscultation bilaterally, Normal air movement Cardiovascular: Regular rate/rhythm, Normal S1 S2, No rubs, No murmurs, Edema Gastrointestinal: Normal bowel sounds, Other (large, reducible umbilical hernia) Musculoskeletal: No clubbing Integumentary: Other (Severe lower extremity lymphedema with venous stasis dermatitis) Neurological: Normal speech, Normal affect - Studies Medications List Reviewed: Yes Assessment And Plan - Plan # Multiple Abdominal Wall Hernias complicated by Small Bowel Obstruction # History of Recurrent Small Bowel Obstructions # History of Appendectomy, Cholecystectomy - Evaluation thus far: - CT abdomen/pelvis (08/05) = "numerous abdominal wall hernias including two Saenz type hernias, one colon containing lateral ventral hernia, and several small bowel containing ventral hernias. Several segments of small bowel are dilated. A narrow neck ventral hernia in the left abdominal wall likely results in either a partial or early high grade obstruction. A second small bowel contai uvaldo ventral hernia more inferiorly also has proximal small bowel dilatation and could reflect either a partial or early high grade obstruction. These findings have been present on prior exams. No pneumatosis, perforation, or portal venous gas identified. Could consider repeat CT with long oral prep with Gastrograffin which could both be diagnostic and possibly therapeutic." - Abdomen x-ray (08/06) = "mild improvement in bowel obstruction pattern since prior CT." - Abdomen x-ray (08/07) = "significant fecal retention and distention the bowel loops is present in the abdomen. A well organized pattern is not seen on today's study." - Management plan: - Consulted General Surgery and spoke with Dr. Child - recommendations appreciated - Recommended slowly advancing diet and discharging tomorrow if able to tolerate GI soft - Recommended that he present to a tertiary care center for complex abdominal wall/hernia surgery - Clear liquid diet - advance as tolerated - PRN symptom control - IV fluids with Normal Saline at 100 mL/hr # Vitamin B12 Deficiency - Started cyanocobalamin replacement # Severe Lymphedema # Bilateral Lower Extremity Venous Stasis Dermatitis # Morbid Obesity - BMI 46.8 kg/m2 # Obstructive Sleep Apnea - No evidence of infection - discontinue piperacillin-tazobactam - Continue wound care Rogelio Adams M.D.
[2022-08-07] MEDS ORDERED: CODEINE 30MG/APAP 300MG TAB PO PRN (12:20)
[2022-08-08] MEDS: NA CHLORIDE 0.9% 1,000 ML IV SCH (02:00)
[2022-08-08] MEDS: CYANOCOBALAMIN 1000MCG/ML INJ IM SCH (08:10)
[2022-08-08] MEDS: ENOXAPARIN 40 MG/0.4 ML SQ SCH (08:11)
[2022-08-08 08:59] VITALS: BP 129/81; TEMP 97.5
[2022-08-08] MEDS ORDERED: CYANOCOBALAMIN 1,000 MCG TAB PO SCH (09:00)
--- NOTE | 2022-08-08 10:12 | P.PN ---
Subjective Date of Service: 08/08/22 Chief Complaint: Small bowel obstruction Subjective: Tolerating diet, Ambulating, Improving Review of Systems General: Unremarkable ENT: Unremarkable Respiratory: Unremarkable Cardiovascular: Unremarkable Gastrointestinal: Nausea (no), Vomiting (no), Abdominal Pain (no), No Distention Genitourinary: Unremarkable Physical Examination - Vital Signs Temperature: 97.5 F Blood Pressure: 129/81 Pulse: 67 Respirations: 17 Pulse Ox (%): 94 - Physical Exam General: Alert, In no apparent distress, Oriented x3, Cooperative HEENT: PERRLA Neck: Supple Respiratory: Normal air movement Cardiovascular: Normal pulses Gastrointestinal: Soft and benign, No tenderness, No rebound, No guarding Musculoskeletal: No erythema Integumentary: No rashes Neurological: Normal speech - Studies Medications List Reviewed: Yes Assessment And Plan - Plan asvance diet MAy D/H when ok by medicine. Pt given advised of hernia centers at tertiary centers who can evaluate him for elective hernia repair and the importance of it.
--- NOTE | 2022-08-08 10:38 | P.DS ---
Admission Date: 08/05/22 Discharge Date: 08/08/22 Disposition: ROUTINE DISCHARGE Discharge Condition: GOOD Reason for Admission: Small bowel obstruction Consultations: 1. General Surgery Hospital Course: DIAGNOSES: # Multiple Abdominal Wall Hernias complicated by Partial Small Bowel Obstructions # History of Recurrent Small Bowel Obstructions # History of Appendectomy, Cholecystectomy # Vitamin B12 Deficiency # Severe Lymphedema # Bilateral Lower Extremity Venous Stasis Dermatitis # Morbid Obesity - BMI 46.8 kg/m2 # Obstructive Sleep Apnea HOSPITAL COURSE: Mr. Jose Miner is a 46 year old male with a past medical history significant for multiple abdominal wall hernias complicated by recurrent small bowel obstructions, morbid obesity, obstructive sleep apnea, and severe lymphedema who was admitted to the [facility] on 08/05/2022 for abdominal pain. He was admitted to the Medicine service. Upon further evaluation, his CT a bdomen/pelvis revealed, "numerous abdominal wall hernias including two Saenz type hernias, one colon containing lateral ventral hernia, and several small bowel containing ventral hernias. Several segments of small bowel are dilated. A narrow neck ventral hernia in the left abdominal wall likely results in either a partial or early high grade obstruction. A second small bowel containing ventral hernia more inferiorly also has proximal small bowel dilatation and could reflect either a partial or early high grade obstruction. These findings have been present on prior exams. No pneumatosis, perforation, or portal venous gas identified. Could consider repeat CT with long oral prep with Gastrograffin which could both be diagnostic and possibly therapeutic." He was placed NPO and General Surgery was consulted for further evaluation. He was evaluated by Dr. Child. He recommended starting a clear liquid diet and advancing his diet gradually as tolerated. Over the course of his hospitalization, he was advanced to a GI soft diet. Dr. Child has cleared him for discharge home with outpatient follow-up. He recommended that he follow-up at a tertiary care center due to his need for a complex abdominal wall/hernia surgery. Mr. Miner verbalized understanding. Additionally, he was found to have vitamin B12 deficiency, and it was recommended that he start taking cyanocobalamin. Of note, Mr. Miner reports that he has difficulty obtaining medications because he is currently homeless. Social work was consulted to assist with providing him with resources to facilitate follow-up and obtaining his medications. On 08/08/2022, he was seen on rounds and deemed medically stable for discharge. He was discharged with instructions to schedule follow-up appointments with his PCP and with General Surgery (Dr. Child). He was given the opportunity to ask questions and reported no further questions. Furthermore, all questions were answered to the best of my ability. A copy of this discharge summary will be sent to the above providers to facilitate continuity of care. Today, I personally spent 25 minutes on his case, of which greater than 50% of the time was spent in patient education, counseling, and coordination of care as described above. - Physical Exam General: Alert, In no apparent distress, Oriented x3 HEENT: Atraumatic, Mucous membr. moist/pink, Sclerae nonicteric Neck: JVD not distended Respiratory: Clear to auscultation bilaterally, Normal air movement Cardiovascular: Regular rate/rhythm, No murmurs, Edema Gastrointestinal: Normal bowel sounds, Other (large, reducible umbilical hernia) Musculoskeletal: No clubbing Integumentary: Other (Severe lower extremity lymphedema with venous stasis dermatitis) Neurological: Normal speech, Normal affect Vital Signs/Physical Exam: Temp Pulse Resp BP Pulse Ox 97.5 F 67 17 129/81 94 08/08/22 10:12 08/08/22 10:12 08/08/22 10:12 08/08/22 10:12 08/08/22 10:12 Laboratory Data at Discharge: WBC 4.30 thou/uL (4.3-10.9) 08/07/22 06:16 Hgb 12.4 g/dL (13.6-17.9) L 08/07/22 06:16 Hct 37.5 % (39.6-49.0) L 08/07/22 06:16 Plt Count 210 thou/uL (152-406) 08/07/22 06:16 PT 12.4 SECONDS (9.5-12.5) 08/06/22 02:56 INR 1.13 08/06/22 02:56 APTT 32.4 SECONDS (24.3-36.9) 08/06/22 02:56 Sodium 135 mEq/L (136-145) L 08/07/22 06:16 Potassium 4.8 mEq/L (3.5-5.1) D 08/07/22 06:16 BUN 12 mg/dL (7-18) 08/07/22 06:16 Creatinine 0.84 mg/dL (0.70-1.30) 08/07/22 06:16 Glucose 101 mg/dL (74-106) 08/07/22 06:16 Phosphorus 3.3 mg/dL (2.5-4.9) 08/06/22 02:56 Magnesium 1.8 mg/dL (1.6-2.4) 08/07/22 06:16 Total Bilirubin 0.6 mg/dL (0.2-1.0) 08/07/22 06:16 AST 17 U/L (15-37) 08/07/22 06:16 ALT 17 U/L (16-61) 08/07/22 06:16 Alkaline Phosphatase 91 U/L (45-117) 08/07/22 06:16 Lipase 23 U/L (13-75) 08/06/22 02:56 Lipase Cancelled 08/06/22 02:56 Home Medications: Codeine/APAP [Tylenol #3*] 1 tab PO Q6HP PRN #15 tab 05/29/22 Furosemide [Lasix*] 40 mg PO DAILY #30 tab 05/29/22 Cyanocobalamin [Vitamin B-12*] 1,000 mcg PO DAILY tab 08/08/22 Physician Discharge Instructions: 1. Please call and schedule a follow-up appointment with your PCP in 3-5 days 2. Please call and schedule a follow-up appointment with General Surgery (Dr. Child) in 5-7 days - He recommends that you follow-up with Surgery at the [facility] due to the complexity of your hernias Diet: AHA Activity: Ad avinash Followup: Ernesto Child MD [ACTIVE - CAN ADMIT] - Time spent managing pt's care (in minutes): 25
== END 2022-08-08 13:26 | disposition home or self-care (01) | DRG 394 ==
LOC: ER 10:23 → ERHOLD 13:32 → 4TH 14:53
PROVIDERS: ADMIT Hospitalist; ATTEND Internal Medicine
DX: K46.0 Unspecified abdominal hernia with obstruction, without gangrene (principal); Z68.42 Body mass index [BMI] 45.0-49.9, adult; E66.01 Morbid (severe) obesity due to excess calories; I10 Essential (primary) hypertension; I89.0 Lymphedema, not elsewhere classified; I87.2 Venous insufficiency (chronic) (peripheral); I87.8 Other specified disorders of veins; E53.8 Deficiency of other specified B group vitamins; K21.9 Gastro-esophageal reflux disease without esophagitis; G47.33 Obstructive sleep apnea (adult) (pediatric); Z85.47 Personal history of malignant neoplasm of testis; Z90.49 Acquired absence of other specified parts of digestive tract; Z91.018 Allergy to other foods; Z79.899 Other long term (current) drug therapy; Z87.891 Personal history of nicotine dependence; Z20.822 Contact with and (suspected) exposure to COVID-19
CPT/HCPCS: 36415; 74019; 74022; 74177; 80053; 82607; 83540; 83605; 83690; 83735; 83880; 84100; 84145; 85025; 85610; 85730; 87804; 87811; 96361; 96374; 96375; 99285; J1170; J1650; J2405; J2543; J3420; J3480; J7030; Q9967

== ENCOUNTER 2022-10-01 01:40 | Inpatient (IN) | payer OTHER ==
--- OUTSIDE RECORDS SUMMARY | 2022-10-01 01:44 | XMS REPORT | Continuity of Care Document ---
:1975 Author Organization [facility] t Address [address] [facility] [address] [place] [address] Care Team Providers Name Role Phone Asked, [...] Treatment Clinician Date Small Small Disease Recurre [facility] St bowel bowel nce 5 [facility] obstructio obstructio 00:00: Me dical n n 00 Center No known No known Disease Unive rs active active ity of problems problems [facility] Allergies, Adverse Reactions, Alerts Allergy Allergy Status Severity Reaction(s) Onset Inactive Treating Comm ents Source Name Type Date Date Clinician NO KNOWN Allergy Active [facility] Social History Social Habit Start Date Stop Date Quantity Comments Source Gender identity [facility] Sexual orientation [facility] Tobacco use and 2015-09-05 2015-09-05 Smokeless [facility] exposure 00:00:00 00:00:00 tobacco non-user Hospital Alcohol intake 2015-09-05 2015-09-05 Current [facility] 00:00:00 00:00:00 non-drinker of Hospital alcohol (finding) History of Social 2015-09-05 2015-09-[address] function 00:00:00 00:00:00 Hospital Sex Assigned At [birth year] [facility] 00:00[facility]00 00:00:00 Hospital Smoking Status Start Date Stop Date Source Unknown if ever smoked [facility] Never smoked tobacco [facility] Medications Ordered Filled Start Stop [...] daily. Hospi ta MG tablet 03 l docusate Yes 100mg Q.5D Take 100 Meth mary kate sodium 5-[address] (COLACE) 17:28: mouth 2 Hospit a 100 MG 03 (two) l capsule times a day. lisinopril 2016-0 Yes 20mg QD Take 20 mg M ethodi (PRINIVIL,Z 5-[address] ESTRIL) 20 17:28: daily. Hospi ta MG tablet 03 l docusate 2016-0 Yes 100mg Q.5D Take 100 Meth mary kate sodium 5-[address] (COLACE) 17:28: mouth 2 Hospit a 100 MG 03 (two) l capsule times a day. lisinopril 2016-0 Yes 20mg QD Take 20 mg M ethodi (PRINIVIL,Z 5-[address] ESTRIL) 20 17:28: daily. Hospi ta MG tablet 03 l aspirin 2016-0 Yes 81mg QD Take 81 mg Meth mary kate (ECOTRIN) 5-[address] 81 MG 17:28: daily. Hospita enteric 03 l coated tablet aspirin 2015-0 Yes 81mg QD Take 81 mg Meth mary kate (ECOTRIN) 5-[address] 81 MG 17:28: daily. Hospita enteric 03 l coated tablet No known No [facility] medications [facility] Vital Signs Vital Name Observation Time Observation Value Comments Source Body height 2018-12-24 04:20:00 180.3 cm [facility] Body weight 2018-12-24 04:20:00 143.79 [facility] BMI 2018-12-24 04:20:00 44.21 kg/m2 [facility] Oxygen saturation in 2018-12-24 04:20:00 100 /min [facility] Arterial blood by [facility] Pulse oximetry Branch Heart rate 2018-12-24 04:20:00 87 /min [facility] Body temperature 2018-12-24 04:20:00 36.56 [place] [facility] Respiratory rate 2018-12-24 04:20:00 20 /min [facility] Body height 2018-12-24 04:20:00 180.3 cm [facility] Body weight 2018-12-24 04:20:00 143.79 kg [facility] BMI 2018-12-24 04:20:00 44.21 kg/m2 [facility] Oxygen saturation in 2018-12-24 04:20:00 100 /min [facility] Arterial blood by [facility] Pulse oximetry Branch Heart rate 2018-12-24 04:20:00 87 /min [facility] Body temperature 2018-12-24 04:20:00 36.56 [facility] [facility] Respiratory rate 2018-12-24 04:20:00 20 /min [facility] Procedures This patient has no known procedures. Plan of Care Planned Activity Planned Date Details Comments Source Future Scheduled 2022-12-[address] [facility] Test 00:00:00 (Season Ended) [code = Medic al Center INFLUENZA VACCINE (Season Ended)] Future Scheduled 2022-04-16 [...] [facility] 00:00:00 [code = 81843220] Medical Ce nter Future Scheduled 2011-09-02 Lipid panel (procedure) [facility] Test 00:00:00 [code = 31842508] Medical Ce nter Future Scheduled 1995-09-02 DTAP/TDAP/TD [...] [facility] 00:00:00 [code = CT Colonography [facility] (combo)] Future Scheduled 1975 Screening for malignant [facility] Test 00:00:00 neoplasm of colon Medical Ce nter (procedure) [code = 239552752] Future Scheduled 1975 Screening for malignant [facility] Test 00:00:00 neoplasm of colon Medical Ce nter (procedure) [code = 688447957] Future Scheduled 1975 Screening for malignant [facility] Test 00:00:00 neoplasm of colon Medical Ce nter (procedure) [code = 753411891] Future Scheduled 1975 Screening for malignant [facility] Test 00:00:00 neoplasm of colon Medical Ce nter (procedure) [code = 415945337] Future Scheduled 1975 Sigmoidoscopy [code = [facility]oscopy[facility] Medical Cente r Future Scheduled 1976 CT Colonography (combo) [facility] Test 00:00:00 [code = CT Colonography [facility] (combo)] Future Scheduled 1976 Screening for malignant [facility] Test 00:00:00 neoplasm of colon Medical Ce nter (procedure) [code = 272425480] Future Scheduled 1976 Screening for malignant [facility] Test 00:00:00 neoplasm of colon Medical Ce nter (procedure) [code = 750318592] Future Scheduled 1976 Screening for malignant [facility] Test 00:00:00 neoplasm of colon Medical Ce nter (procedure) [code = 148182474] Future Scheduled 1976 Screening for malignant [facility] Test 00:00:00 neoplasm of colon Medical Ce nter (procedure) [code = 254145415] Future Scheduled 1975 Sigmoidoscopy [code = [facility] 00:00:00 S[facility]oidoscopy] Medical Cente r Encounters Start End Encounter Admission Attending Care Care Encounter Source Date/Time Date/Time Type Type Clinicians Facility Department ID 2019-08-15 Inpatient [facility] [id number] [facility] 20:12:00 [id number] 2018-12-23 2018-12-24 Emergency [facility], [facility] [id number] Univers 23:17:13 00:07:00 Chong Chahal [id number] i [facility] [place] [id number] [facility] [id number] [facility] [address] Branch 2018-12-23 2018-12-24 Emergency [facility] [id number] 23:17:13 00:07:00 Chong Chahal [id number] [place] [id number] [place] [address] [id number] Results Test Description Test Time Test Comments Results Result Comments Source PHOSPHORUS 2019-08-18 04:42:00 Test Item Value Reference Range Interpretation Comme nts PHOSPHORUS (BEAKER) (test code = 604) 3.7 mg/dL 2.3-4.7 Pet Nutrition Specialist ID - MARGARET [id number] 04:42:00 Test Item Value Reference Range Interpretation Comments MAGNESIUM (BEAKER) (test code = 1.7 mg/dL 1.6-2.6 627) Pet Nutrition Specialist ID - PIAYA LBASIC METABOLIC [id number] 04:42:00 Test Item Value Reference Range Interpretation [...] S NOT APPLICABLE FOR DIALYSIS PATIEN TS. Pet Nutrition Specialist ID - PIAYA LCBC W/PLT COUNT & AUTO [id number] 04:28:00 Test Item Value Reference Range Interpretation [...] PERCENT (BEAKER) (test code = 2801) POCT-GLUCOSE [id number] 06:56:00 Test Item Value Reference Range Interpretation Comments POC-GLUCOSE METER 98 mg/dL 70-110 : TESTED A T [facility] 6720 (BEAKER) (test code = YONY DECKER MA, 1538) [address]: Pet Nutrition Specialist/Techni sherri ID = [id number] for SOTERO HAYES [id number] 04:58:00 Test Item Value Reference Range Interpretation Comments PHOSPHORUS (BEAKER) (test code = 3.2 mg/dL 2.3-4.7 604) Pet Nutrition Specialist ID - SONAL [id number] 04:58:00 Test Item Value Reference Range Interpretation Comments MAGNESIUM (BEAKER) (test code = 1.8 mg/dL 1.6-2.6 627) Pet Nutrition Specialist ID - SONAL WBASIC METABOLIC [id number] 04:58:00 Test Item Value Reference Range Interpretation [...] S NOT APPLICABLE FOR DIALYSIS PATIEN TS. Pet Nutrition Specialist ID - SONAL WCBC W/PLT COUNT & AUTO [id number] 04:35:00 Test Item Value Reference Range Interpretation [...] (BEAKER) (test code = 2801) BASIC METABOLIC [id number] 11:27:00 Test Item Value Reference Range Interpretation [...] S NOT APPLICABLE FOR DIALYSIS PATIEN TS. Pet Nutrition Specialist ID - MICAH WPROTHROMBIN [id number] 05:26:00 Test Item Value Reference Range Interpretation [...] mechanical heart valves.CBC W/PLT COUNT & AUTO [id number] 05:04:00 Test Item Value Reference Range Interpretation [...] (BEAKER) (test code = 2801) BASIC METABOLIC [id number] 00:05:00 Test Item Value Reference Range Interpretation [...] S NOT APPLICABLE FOR DIALYSIS PATIEN TS. Pet Nutrition Specialist ID - PIAYA LPROTHROMBIN [id number] 23:57:00 Test Item Value Reference Range Interpretation [...] for patients wiht mechanical heart valves.LACTIC ACID, [id number] 23:56:00 Test Item Value Reference Range Interpretation Comments LACTATE BLOOD VENOUS (2) (BEAKER) 0.58 mmol/L 0.50-2.20 (test code = 2872) Pet Nutrition Specialist ID - PIAYA LCBC (HEMOGRAM ONLY)2019-08-15 23:43:00 [...]
[2022-10-01] MEDS ORDERED: ONDANSETRON 4 MG/2 ML VIAL ONE (03:16)
[2022-10-01] MEDS ORDERED: NA CHLORIDE 0.9% 1,000 ML ONE (03:16)
[2022-10-01] MEDS ORDERED: MORPHINE 4 MG/ML SYR ONE ×2 (03:16→05:44)
[2022-10-01 03:28] LABS: Absolute Lymphocytes (CBC) 0.8 K/uL (0.7-4.9); Hematocrit 41.4 % (39.6-49.0); Lymphocytes % 11.5 % (15.3-44.8); MCV 80.6 fL (80-100); MPV 7.7 fL (7.6-11.3); RBC Red Blood Cell Count 5.14 M/uL (4.33-5.43)
[2022-10-01 03:48] LABS: Potassium 3.7 mEq/L (3.5-5.1)
[2022-10-01 03:49] LABS: Albumin 3.9 g/dL (3.4-5.0); Bilirubin Total 1.5 mg/dL (0.2-1.0); Protein, Total 10.1 g/dL (6.4-8.2)
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
[2022-10-01] MEDS ORDERED: METRONIDAZOLE 500mg IVPB 500 MG/100 ML BAG IV ONE (05:44)
[2022-10-01] MEDS ORDERED: METOCLOPRAMIDE 10 MG/2mL INJ ONE (05:44)
[2022-10-01] MEDS ORDERED: NA CHLORIDE 0.9% 100 ML ONE (05:44)
[2022-10-01] MEDS ORDERED: CEFTRIAXONE 1000 MG/VIAL ONE (05:44)
[2022-10-01] MEDS ORDERED: D5 0.9 NS 1,000 ML IV ONE (05:45)
[2022-10-01] MEDS ORDERED: D5.45NS W/KCL 20MEQ 1,000 ML IV ONE (06:52)
--- NOTE | 2022-10-01 08:15 | RAD REPORT ---
EXAM DESCRIPTION: RADChest Single View10/01/2022 6:54 am CLINICAL HISTORY: post NGT placement COMPARISON: Abdomen Acute Series dated 08/06/2022; Abdomen 1 View (KUB) dated 11/15/2020; Abdomen 1 Vie w ([facility]) dated 02/26/2020; Chest Single View dated 08/15/2019 TECHNIQUE: Portable AP view of the chest. FINDINGS: Satisfactory position of the NG tube, projecting along the proximal stomach. Over exposure and decreased inspiratory effort limits evaluation. No pneumothorax or sizable effusion appreciated . The cardiomediastinal contours are unremarkable. IMPRESSION: Satisfactory position of the NG-tube.
[2022-10-01 08:51] VITALS: O2SAT 97
[2022-10-01] MEDS ORDERED: ONDANSETRON 4 MG/2 ML VIAL IV PRN (09:41)
[2022-10-01] MEDS: Ringers Lactate 1,000 ML IV SCH ×2 (09:41→14:18)
[2022-10-01] MEDS ORDERED: METRONIDAZOLE 500mg IVPB 500 MG/100 ML BAG IV SCH (09:41)
[2022-10-01] MEDS ORDERED: CEFTRIAXONE 1,000 MG in NA CHLORIDE 0.9% 50 ML IVPB SCH (09:41)
[2022-10-01] MEDS ORDERED: HYDRALAZINE HCL 20 MG/ML VIAL IV PRN (09:56)
--- NOTE | 2022-10-01 10:56 | CON ---
Date of Consultation: 10/01/2022 Reason: Small-bowel obstruction. History Of Present Illness: The patient is a 47-year-old gentleman with multiple abdominal wall phillip ias secondary to multiple exploratory laparotomies, comes to the hospital frequently, started having nausea and dry heaving, and went to the ER where he was diagnosed with high-grade partial small-bowel obstruction and he was admitted and I was consulted. He is awake, drowsy. He is unable to provide a good review of systems. Based on the medical records, it appears that he is passing gas and having small bowel movements. As stated, he has been admitted numerous times for the same issue, he has be en advised by myself and Dr. Child that he needs to go to [place] to a [facility] with a hernia team try to help him, but he has not done so. He denies any sore throat, runny nose, coug h, headaches, or dizziness, no chest pain, no fever or chills at this time. Review of Systems: Otherwise, unremarkable. Past Medical History: History of testicular cancer, hypertension, morbid obesity, obstructive sleep apnea, severe lymphedema, and GERD. Past Surgical History: Appendectomy, cholecystectomy, multiple exploratory laparotomy, and bowel rep air secondary to bowel perforation. Allergies: INCLUDE SPINACH AND CABBAGE. Social History: The patient does not smoke. Denies drinking alcohol. Family History: Noncontributory, except for heart disease in father. Physical Examination: Vital Signs: Stable. Blood pressure is little elevated. He is afebrile. General: He is awake, alert, drowsy. Head and Neck: No neck masses. No JVD. Throat clear. Neck supple. Chest: Clear. Heart: S1 and S2. Abdomen: Soft with hypoactive bowel sounds, distended. Diffuse tenderness. Diffuse weakness in the abdominal wall with palpable bowel underneath the skin consistent with multiple abdominal wall herni as. There is no redness. There is no tenseness to the abdomen. Extremity: Adequately perfused. Nontender. Neurologic: Nonfocal. Laboratory Data: White count is 7.1, slight left shift. Chemistry reviewed. CO2 is 24. AST and AL T, total bilirubin is slightly elevated. CT of the abdomen and pelvis reviewed. shows a high-grade small bowel obstruction. No evidence of pneumatosis or ischemia present. Chest x-ray con firms the placement of the NG tube. Assessment: This is a 47-year-old gentleman with multiple medical problems, small bowel obstruction. Recommendations: The patient is high risk for any type of surgery done in this institution. He need s surgical intervention. We will try to transfer him to a tertiary care facility. At this time, the patient needs medical management with n.p.o., NG tube, IV fluid, IV antibiotics, repeating abdominal x-ray tomorrow with serial abdominal exams. There is no need for any acute surgical intervention at this time. /MODL Voice ID: [id number] Report ID: [id number]
[2022-10-01] MEDS ORDERED: CLONIDINE 0.1 MG/PATCH TD SCH (11:00)
[2022-10-01] MEDS: ENOXAPARIN 40 MG/0.4 ML SQ SCH (12:14)
[2022-10-01 16:07] VITALS: BMI 46.3
[2022-10-01] MEDS: METRONIDAZOLE 500mg IVPB 500 MG/100 ML BAG IV SCH (17:05)
--- NOTE | 2022-10-01 22:02 | RAD REPORT ---
EXAM DESCRIPTION: CT - Abdomen Pelvis Wo Contrast - 10/01/2022 6:51 am CLINICAL HISTORY: The patient is 47 years old and is Male; ABD PAIN TECHNIQUE: Axial computed tomography images of the abdomen and pelvis without intravenous contrast. Sagittal and coronal reformatted images were created and reviewed. This CT exam was performed usi ng one or more of the following dose reduction techniques: automated exposure control, adjustment o f the mA and/or kV according to patient size, and/or use of iterative reconstruction technique. COMPARISON: CT abdomen and pelvis August 05, 2022. FINDINGS: Lung bases: Unremarkable. No mass. No consolidation. ABDOMEN: Liver: Unremarkable. Gallbladder and bile ducts: Unremarkable. No calcified stones. No ductal dilation. Pancreas: Unremarkable. No ductal dilation. Spleen: Unremarkable. No splenomegaly. Adrenals: Unremarkable. No mass. Kidneys and ureters: Unremarkable. No obstructing stones. No hydronephrosis. Stomach and bowel: Moderate stool in the rectum. Colonic diverticulosis. Markedly dilated small bowel loops with air-fluid levels. Stomach is distended with fluid. No pneumatosis. Multiple anterior abdominal wall hernias. The hernia in the left lower quadrant is larger and contains fat and distended small bowel loops, as well as one potential point of obstruction. [facility] er is in the mid abdomen to the left midline. The hernias to the left of midline contain small bowel loops, short segments. There are two or three right-sided abdominal wall hernias that contain short s egments of colon. No evidence of colitis. PELVIS: Appendix: No findings to suggest acute appendicitis. Bladder: Bladder is not well distended. No stones. Reproductive: Unremarkable as visualized. ABDOMEN and PELVIS: Intraperitoneal space: Unremarkable. No free air. No significant fluid collection. Bones/joints: Bilateral L5 spondylolysis with marked bilateral neural foraminal narrowing L5-S1 d egenerative disc disease L5-S1 with one spondylolisthesis. No acute fracture. No dislocation. Soft tissues: See above. Vasculature: Multiple periaortic surgical clips. No abdominal aortic aneurysm. Lymph nodes: No pathologically enlarged lymph nodes. IMPRESSION: 1. High-grade partial small bowel obstruction, with two hernias as potential point of obstruction. No pneumatosis to suggest ischemia. Multiple abdominal wall hernias as above. 2. Moderate stool in the rectum. Colonic diverticulosis. 3. Additional non-emergent findings as above. Electronically signed by: Maria Del Rosario Villanueva MD 10/01/2022 5:47 AM CDT Due to temporary technical issues with the PACS/Fluency reporting system, reports are being signed by the in house radiologists without review as a courtesy to insure prompt reporting. The interpreting radiologist is fully responsible for the content of the report.
[2022-10-02] MEDS: METRONIDAZOLE 500mg IVPB 500 MG/100 ML BAG IV SCH ×3 (00:19→16:33)
[2022-10-02] MEDS: Ringers Lactate 1,000 ML IV SCH ×2 (00:19→13:46)
[2022-10-02] MEDS: MORPHINE 4 MG/ML SYR IV PRN ×3 (00:20→20:23)
[2022-10-02 07:00] LABS: Absolute Lymphocytes (CBC) 0.9 K/uL (0.7-4.9); Lymphocytes % 15.5 % (15.3-44.8); MPV 8.2 fL (7.6-11.3); RBC Red Blood Cell Count 4.63 M/uL (4.33-5.43)
[2022-10-02 07:13] LABS: Potassium 3.6 mEq/L (3.5-5.1)
--- NOTE | 2022-10-02 07:30 | RAD REPORT ---
EXAM DESCRIPTION: RAD - Abdomen W Erect - 10/02/2022 6:09 am CLINICAL HISTORY: Abdominal pain FINDINGS: Small bowel has diminished in caliber since the prior exam. Air within the colon is diminished. There has been an improvement in the mechanical small bowel obstruction
[2022-10-02] MEDS: ENOXAPARIN 40 MG/0.4 ML SQ SCH (07:46)
[2022-10-02] MEDS: CEFTRIAXONE 1,000 MG in NA CHLORIDE 0.9% 50 ML IVPB SCH (07:46)
[2022-10-02] MEDS ORDERED: PNEUMOCOCCAL VACCINE 0.5 ML IMVAC ONE (08:00)
[2022-10-02] MEDS ORDERED: KCL 20 MEQ/100 mL IVPB 20 MEQ/100 ML BAG IV SCH (10:00)
--- NOTE | 2022-10-02 11:23 | PN ---
Date of Progress Note: 10/02/2022 Subjective: The patient is awake, alert. No complaint. Objective: Vital Signs: Stable. He is afebrile. Abdomen: The patient is passing a little bit gas. No bowel movement. Laboratory Data: Reviewed. White count is normal. There is no left shift. Abdominal except x-ray shows improvement in the small bowel obstruction pattern. Assessment: Small bowel obstruction, likely partial with multiple incarcerated incisional and abdomi nal wall hernias. Recommendations: Continue NG tube at this time. The patient has 1100 cc output last shift and [facility] empiric antibiotics, ambulation, follow abdominal x-ray. No need for any surgical intervention a t this time. Serial abdominal exams. /MODL Voice ID: [id number] Report ID: [id number]
--- NOTE | 2022-10-02 16:49 | RAD REPORT ---
EXAM DESCRIPTION: RAD - Abdomen 1 View ([facility]) - 10/02/2022 2:11 pm CLINICAL HISTORY: Placement of NGT/OGT. Post Insertion. COMPARISON: Abdomen 1 View ([facility]) dated 11/15/2020; Abdomen 1 View ([facility]) dated 02/26/2020; Abdomen 1 Vi ew ([facility]) dated 02/10/2019; Abdomen 1 View ([facility]) dated 11/21/2018 TECHNIQUE: Single AP view of the abdomen. FINDINGS: Enteric tube tip projects over the proximal stomach. Nonobstructive bowel gas pattern. No air-fluid levels, free air, or pneumatosis. No suspicious calcif ications. No significant bony abnormality. Extensive surgical dashawn in the central abdomen. IMPRESSION: Enteric tube tip projects over the proximal stomach. Nonobstructive bowel gas pattern.
[2022-10-03] MEDS: Ringers Lactate 1,000 ML IV SCH ×3 (00:33→21:02)
[2022-10-03] MEDS: METRONIDAZOLE 500mg IVPB 500 MG/100 ML BAG IV SCH ×3 (00:33→17:01)
[2022-10-03 04:28] LABS: Absolute Lymphocytes (CBC) 0.8 K/uL (0.7-4.9); Hematocrit 36.3 % (39.6-49.0); Lymphocytes % 12.1 % (15.3-44.8); MCV 80.6 fL (80-100); MPV 7.6 fL (7.6-11.3)
[2022-10-03 04:35] LABS: Potassium 3.7 mEq/L (3.5-5.1)
[2022-10-03] MEDS: ENOXAPARIN 40 MG/0.4 ML SQ SCH (07:53)
[2022-10-03] MEDS: CEFTRIAXONE 1,000 MG in NA CHLORIDE 0.9% 50 ML IVPB SCH (07:54)
[2022-10-03] MEDS ORDERED: KCL 20 MEQ/100 mL IVPB 20 MEQ/100 ML BAG IV ONE (09:00)
--- NOTE | 2022-10-03 11:09 | P.PN ---
Subjective Date of Service: 10/03/22 Chief Complaint: Incarcerated Ventral Hernia No acute events overnight. NG tube is in place with green/brown gastric output. He reports mild abdominal discomfort. He states that he has been passing flatus and has had one small bowel movement. He denies any chest pain, shortness of kaveh ath, nausea, or vomiting. Review of Systems 10-point ROS is otherwise unremarkable Gastrointestinal: Abdominal Pain, Distention Physical Examination - Vital Signs Temperature: 98.4 F Blood Pressure: 162/87 Pulse: 76 Respirations: 20 Pulse Ox (%): 96 Assessment And Plan - Plan - Physical Exam General: Alert, In no apparent distress, Oriented x3 HEENT: Atraumatic, Mucous membr. moist/pink, Sclerae nonicteric Neck: JVD not distended Respiratory: Clear to auscultation bilaterally, Normal air movement Cardiovascular: Regular rate/rhythm,No rubs, No murmurs, Edema Gastrointestinal: Hypoactive bowel sounds, Non-tender to palpation, Other (large, reducible umbilical hernia) Musculoskeletal: No clubbing Integumentary: Other (severe lower extremity lymphedema with venous stasis dermatitis) Neurological: Normal speech, Normal affect - Plan # Multiple Abdominal Wall Hernias complicated by High-Grade Partial Small Bowel Obstruction # History of Recurrent Small Bowel Obstructions # History of Appendectomy, Cholecystectomy, Hernia Mesh Repiar, and Bowel Repair due to Perforation - Evaluation thus far: - CT abdomen/pelvis (10/01) = "1. High-grade partial small bowel obstruction, with two hernias as potential point of obstruction. No pneumatosis to suggest ischemia. Multiple abdominal wall hernias as above. 2. Moderate stool in the rectum. Colonic diverticulosis. 3. Additional non-emergent findings as above." - Abdomen x-ray (10/02) = "small bowel has diminished in caliber since the prior exam. Air within the colon is diminished. There has been an improvement in the mechanical small bowel obstruction." - KUB (10/03) = pending - Management plan: - Consulted General Surgery and spoke with Dr. Rowe - recommendations appreciated - Recommended clamping nasogastric tube. Advised no surgical intervention at this time. - Recommended empiric ceftriaxone + metronidazole - Clear liquid diet - advance as tolerated - PRN symptom control - IV fluids with lactated Ringer's at 100 mL/hr # Vitamin B12 Deficiency - Started cyanocobalamin # Severe Lymphedema # Bilateral Lower Extremity Venous Stasis Dermatitis # Morbid Obesity - BMI 46.3 kg/m2 # Obstructive Sleep Apnea - No evidence of infection - Continue wound care # Hypertension - Continue clonidine # Protein-Albumin Disassociation - Follow-up with PCP for further evaluation # Bilateral L5 Spondylolysis with L5-L1 Stenosis - Denies any alarm symptoms - Follow-up with PCP for further evaluation Rogelio Adams M.D.
--- NOTE | 2022-10-03 11:50 | PN ---
Date of Progress Note: 10/03/2022 Subjective: The patient is awake, alert. Had a bowel movement. Objective: Vital Signs: Stable, afebrile. NG tube has put out 300 cc. Abdomen: Abdominal x-ray does not show any obstructive pattern anymore. Laboratory Data: Reviewed. White count is normal. Slight left shift. Assessment: Small bowel obstruction, improving. Recommendations: Clean up NG tube, start clear liquids. If residual less than 100, can discontinue the NG tube and advance diet to a GI soft. The patient encouraged to eat small frequent meals and fo llow up in [place] for definitive surgical repair of all of the multiple abdominal wall hernias. He will need Plastic Surgery as well as General Surgery to reconstruct the abdominal wall for an adequat e repair. /MODL Voice ID: [id number] Report ID: [id number]
[2022-10-03 11:53] LABS: Bilirubin Direct 0.2 mg/dL (0-0.2); Bilirubin Indirect, Calculated 0.4 mg/dL (0.2-0.8); Bilirubin Total 0.6 mg/dL (0.2-1.0); Protein, Total 7.7 g/dL (6.4-8.2)
--- NOTE | 2022-10-03 12:00 | RAD REPORT ---
EXAM DESCRIPTION: RAD - Abdomen 1 View (KUB) - 10/03/2022 10:55 am CLINICAL HISTORY: Placement of NGT/OGT. Post Insertion. COMPARISON: Abdomen 1 View (KUB) dated 10/02/2022; Abdomen 1 View (KUB) dated 11/15/2020; Abdomen 1 Vie w (KUB) dated 02/26/2020; Abdomen 1 View (KUB) dated 02/10/2019 TECHNIQUE: Single AP view of the abdomen. FINDINGS: Stable positioning of the enteric tube, in the proximal stomach. Nonobstructive bowel gas pattern. No air-fluid levels, free air, or pneumatosis. No suspicious calcifications. No significant bony abnormality. IMPRESSION: Stable positioning of the enteric tube, projecting over the proximal stomach.
[2022-10-04] MEDS: METRONIDAZOLE 500mg IVPB 500 MG/100 ML BAG IV SCH ×2 (00:51→09:50)
[2022-10-04 06:17] LABS: Hematocrit 38.1 % (39.6-49.0)
[2022-10-04 06:24] LABS: Potassium 3.7 mEq/L (3.5-5.1)
[2022-10-04] MEDS ORDERED: CYANOCOBALAMIN 1,000 MCG TAB PO SCH (09:00)
[2022-10-04] MEDS ORDERED: POTASSIUM CL SA 10 MEQ TAB PO ONE (09:00)
--- NOTE | 2022-10-04 09:26 | PN ---
Date of Progress Note: 10/04/2022 Subjective: The patient is awake, alert, passing gas, did not have a bowel movement today. He is tolerating clear liquids. No nausea or vomiting. Objective: Vital Signs: Stable, afebrile. Abdomen: Benign. Assessment: Small bowel obstruction, improved. Recommendations: We will advance his diet to GI soft as tolerated. The patient will be discharged home. The patient was instructed on eating small frequent meals rather big heavy meal and also advised to [facility] [place] as he needs a team of surgeons to help repair this hernia. This kind of surgery cannot be done at this facility. /MODAlan Voice ID: [id number] Report ID: [id number] NEGRO
[2022-10-04] MEDS: CEFTRIAXONE 1,000 MG in NA CHLORIDE 0.9% 50 ML IVPB SCH (09:48)
[2022-10-04] MEDS: ENOXAPARIN 40 MG/0.4 ML SQ SCH (09:48)
[2022-10-04] MEDS: Ringers Lactate 1,000 ML IV SCH (09:50)
[2022-10-04 12:18] VITALS: BP 132/86; TEMP 97.7
--- NOTE | 2022-10-04 13:33 | P.DS ---
Admission Date: 10/01/22 Discharge Date: 10/04/22 Disposition: ROUTINE DISCHARGE Discharge Condition: GOOD Reason for Admission: Incarcerated Ventral Hernia Consultations: 1. 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 Jose Miner is a 47 year old male with a past medical history significant for multiple abdominal wall hernias complicated by recurrent small bowel obstructions, morbid obesity, obstructive sleep apnea, and severe lymphedema who was admitted to the [facility] on 10/01/2022 for abdominal pain. He was admitted to the Medicine service. Upon further evaluation, his CT abdomen/pelvis revealed, "1. High-grade partial small bowel obstruction, with two hernias as potential point of obstruction. No pneumatosis to suggest ischemia. Multiple abdominal wall hernias as above. 2. Moderate stool in the rectum. Colonic diverticulosis. 3. Additional non-emergent findings as above." He was placed NPO and a nasogastric tube was inserted. General Surgery was consulted for further evaluation and he was evaluated by Dr. Rowe. He recommended starting a clear liquid diet and advancing his diet gradually as tolerated. Over the course of his hospitalization, he was advanced to a GI soft diet. Dr. Rowe has cleared him for discharge home with outpatient follow-up. He recommended that he follow-up at a tertiary care center due to his need for a complex abdominal wall/hernia surgery. Mr. Miner verbalized understanding. On 10/04/2022, he was seen on rounds and deemed medically stable for discharge. He was discharged with instructions to schedule follow-up appointments with his PCP and with General Surgery (Dr. Rowe). He was provided a prescription for clonidine. He was given the opportunity to ask questions and reported no further questions. Furthermore, all questions were answered to the best of my ability. A copy of this discharge summary will be sent to the above providers to facilitate continuity of care. Today, I personally spent 25 minutes on his case, of which greater than 50% of the time was spent in patient education, counseling, and coordination of care as described above. - Physical Exam General: Alert, In no apparent distress, Oriented x3 HEENT: Atraumatic, Sclerae nonicteric Neck: JVD not distended Respiratory: Clear to auscultation bilaterally, Normal air movement Cardiovascular: Regular rate/rhythm,No rubs, No murmurs, Edema Gastrointestinal: Hypoactive bowel sounds, Non-tender to palpation, Other (large, reducible umbilical hernia) Musculoskeletal: No clubbing Integumentary: Other (severe lower extremity lymphedema with venous stasis dermatitis) Neurological: Normal speech, Normal affect Vital Signs/Physical Exam: Temp Pulse Resp BP Pulse Ox 97.7 F 69 18 132/86 98 10/04/22 12:00 10/04/22 12:00 10/04/22 12:00 10/04/22 12:00 10/04/22 12:00 Laboratory Data at Discharge: WBC 6.90 thou/uL (4.3-10.9) 10/03/22 04:06 Hgb 12.5 g/dL (13.6-17.9) L 10/04/22 05:50 Hct 38.1 % (39.6-49.0) L 10/04/22 05:50 Plt Count 194 thou/uL (152-406) 10/03/22 04:06 Sodium 139 mEq/L (136-145) 10/04/22 05:50 Potassium 3.7 mEq/L (3.5-5.1) 10/04/22 05:50 BUN 9 mg/dL (7-18) 10/04/22 05:50 Creatinine 0.68 mg/dL (0.70-1.30) L 10/04/22 05:50 Glucose 103 mg/dL (74-106) 10/04/22 05:50 Phosphorus 3.0 mg/dL (2.5-4.9) 10/02/22 06:11 Magnesium 2.0 mg/dL (1.6-2.4) 10/02/22 06:11 Total Bilirubin 0.6 mg/dL (0.2-1.0) 10/03/22 04:06 AST 19 U/L (15-37) 10/03/22 04:06 ALT 44 U/L (16-61) 10/03/22 04:06 Alkaline Phosphatase 92 U/L (45-117) 10/03/22 04:06 Triglycerides 102 mg/dL (<150) 10/02/22 06:11 Cholesterol 95 mg/dL (<200) 10/02/22 06:11 HDL Cholesterol 36 mg/dL (40-60) L 10/02/22 06:11 Cholesterol/HDL Ratio 2.64 10/02/22 06:11 Lipase 21 U/L (13-75) 10/01/22 03:20 Home Medications: Clonidine Patch [Catapres-Tts 1*] 0.1 mg TD EVERY 7TH DAY #5 pat 10/04/22 Cyanocobalamin [Vitamin B-12*] 500 mcg PO DAILY tab 10/04/22 New Medications: Clonidine Patch [Catapres-Tts 1*] 0.1 mg TD EVERY 7TH DAY #5 pat Physician Discharge Instructions: 1. Please call and schedule a follow-up appointment with your PCP in 3-5 days - Your protein levels were elevated. Please discuss with your PCP for further evaluation - You have degenerative joint disease in your lower back. Please discuss with your PCP. - If you develop weakness in your legs, numbness/tingling on the lower half your body, or loss of control of your bladder or bowel, please seek medical attention immediately and go to the nearest emergency department 2. Please call and schedule a follow-up appointment with General Surgery (Dr. Rowe) in 5-7 days - He recommends that you follow-up with Surgery at the [facility] due to the complexity of your hernias Diet: Regular Activity: Ad avinash Followup: Reji Rowe MD [ACTIVE - CAN ADMIT] - Time spent managing pt's care (in minutes): 25
== END 2022-10-04 15:21 | disposition home or self-care (01) | DRG 394 ==
LOC: ER 01:40 → ERHOLD 05:20 → 4TH 05:55
PROVIDERS: ADMIT Internal Medicine Sleep Medicine; ATTEND Internal Medicine
DX: K43.6 Other and unspecified ventral hernia with obstruction, without gangrene (principal); Z68.42 Body mass index [BMI] 45.0-49.9, adult; E66.01 Morbid (severe) obesity due to excess calories; I10 Essential (primary) hypertension; I89.0 Lymphedema, not elsewhere classified; I87.2 Venous insufficiency (chronic) (peripheral); I16.0 Hypertensive urgency; G47.33 Obstructive sleep apnea (adult) (pediatric); E53.8 Deficiency of other specified B group vitamins; M43.06 Spondylolysis, lumbar region; K21.9 Gastro-esophageal reflux disease without esophagitis; M48.061 Spinal stenosis, lumbar region without neurogenic claudication; Q66.89 Other specified congenital deformities of feet; Z59.00 Homelessness unspecified; Z90.49 Acquired absence of other specified parts of digestive tract; Z79.899 Other long term (current) drug therapy; Z28.310 Unvaccinated for COVID-19; Z91.148 Patient's other noncompliance with medication regimen for other reason; Z87.891 Personal history of nicotine dependence; Z91.018 Allergy to other foods
CPT/HCPCS: 36415; 71045; 74018; 74019; 74176; 80048; 80053; 80061; 80076; 83605; 83690; 83735; 84100; 85014; 85018; 85025; 96361; 96365; 96367; 96368; 96375; 99284; J0360; J0696; J1650; J2405; J2765; J3480; J7030; J7042; J7120

== ENCOUNTER 2023-11-13 17:01 | Inpatient (IN) | payer OTHER ==
--- NOTE | 2023-11-13 19:17 | RAD REPORT ---
[facility]43 [facility] CLINICAL HISTORY: DYSPNEA COMPARISON: 10/03/2022 and 08/06/2022 TECHNIQUE: Portable AP view of the chest. FINDINGS: The lungs are clear. No pneumothorax or effusion. The cardiomediastinal contours are unre markable. IMPRESSION: No acute cardiopulmonary process.
[2023-11-13 20:20] LABS: Hematocrit 31.2 % (39.6-49.0); Hemoglobin 10.3 g/dL (13.6-17.9); Lymphocytes % 19.3 % (15.3-44.8); MCH 26.6 pg (27.0-35.0); MCHC 33.2 g/dL (32.0-36.0); MCV 80.2 fL (80-100); MPV 7.1 fL (7.6-11.3); Neutrophils % 64.2 % (41.7-73.7); Platelets 208 thou/uL (152-406); RBC Red Blood Cell Count 3.89 M/uL (4.33-5.43); Red Cell Distribution Width 17.3 % (12.1-15.2)
[2023-11-13 20:21] LABS: Absolute Eosinophils 0.1 K/uL (0-0.5); Absolute Lymphocytes (CBC) 1.1 K/uL (0.7-4.9); Absolute Monocytes 0.7 K/uL (0.1-1.3); Absolute Neutrophil 3.5 K/uL (1.8-8.0); Basophils % 0.8 % (0-1.3); Eosinophils % 2.7 % (0-4.4); Nucleated Red Blood Cells % 0.1 % (0-0)
[2023-11-13] MEDS ORDERED: NA CHLORIDE 0.9% 100 ML ONE (20:23)
[2023-11-13] MEDS ORDERED: PIPERACIL/TAZO 3.375 GM VIAL IV ONE (20:23)
[2023-11-13] MEDS ORDERED: NA CHLORIDE 0.9% 1,000 ML ONE (20:23)
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
[2023-11-13 20:39] LABS: Protime INR 1.26
[2023-11-13 20:41] LABS: Albumin 3.1 g/dL (3.4-5.0); Albumin/Globulin Ratio 0.6 (1.1-1.8); Bilirubin Direct 0.2 mg/dL (0-0.2); Bilirubin Indirect, Calculated 0.2 mg/dL (0.2-0.8); Bilirubin Total 0.4 mg/dL (0.2-1.0); Globulin 5.5 g/dL (2.3-3.5); Magnesium 1.9 mg/dL (1.6-2.4); Protein, Total 8.6 g/dL (6.4-8.2); Troponin High Sensitivity 6.3 pg/mL (<58.9)
--- NOTE | 2023-11-13 20:41 | RAD REPORT ---
EXAM DESCRIPTION: US - Extrem Venous W Compress Chris - 11/13/2023 7:49 pm CLINICAL HISTORY: Pain, swelling COMPARISON: None. TECHNIQUE: Real-time sonographic evaluation of the bilateral lower extremity deep venous systems was performed. FINDINGS: Normal compressibility, flow augmentation, phasic flow and spontaneous flow is identified in both the left and right lower extremity deep venous systems. No intraluminal filling defects seen. IMPRESSION: No DVT in either lower extremity.
[2023-11-13 20:54] LABS: Specific Gravity > 1.030 (1.005-1.030); Sqamous Epithelial None Seen /HPF (None Seen); Urine Bacteria None Seen /HPF (<20); Urine Bilirubin NEGATIVE (Negative); Urine Blood Negative (Negative); Urine Clarity Clear (Clear); Urine Color Yellow (Yellow); Urine Culture Reflex Order NOT NEEDED; Urine Glucose NEGATIVE (Negative); Urine Ketones NEGATIVE (Negative); Urine Microscopic Reflex YN ORDER UMIC; Urine Mucus Slight /HPF (None Seen); Urine Nitrite NEGATIVE (Negative); Urine Protein TRACE (Negative); Urine RBC <5 /HPF (None Seen); Urine Urobilinogen 1+ (Normal); Urine WBC <5 /HPF (<5); Urine pH 5.5 (5.0-7.0)
--- NOTE | 2023-11-13 23:32 | P.HP ---
Certification for Inpatient With expected LOS: >2 Midnights Practitioner: I am a practitioner with admitting privileges, knowledge of patient current condition, hospital course, and medical plan of care. Services: Services provided to patient in accordance with Admission requirements found in Title 42 Section 412.3 of the Code of Federal Regulations Patient History Date of Service: 11/13/23 Reason for admission: leg swelling History of Present Illness: 48-year-old male with history of hypertension, perforated bowel, lymphedema presented to ER with progressive weakness swelling and leg discomfort. He reports that he is currently homeless. And states that he has worsening leg symptoms when he is outside in the heat. On arrival patient was noted to have significant swelling, erythema and concern for maggots. The patient reports he is unable to take care of himself. He is being admitted for wound care, evaluation, possible placement Allergies No Known Drug Allergies Allergy (Verified 02/25/20 00:20) Unknown Home Medications: Clonidine Patch [Catapres-Tts 1*] 0.1 mg TD EVERY 7TH DAY #5 pat 10/04/22 Cyanocobalamin [Vitamin B-12*] 500 mcg PO DAILY tab 10/04/22 - Past Medical/Surgical History Diabetic: No -: History of testicular cancer -: History of small bowel obstruction -: Hypertension -: Large abdominal hernias -: obstructive sleep apnea -: Morbid obesity -: Varicose veins -: GERD -: Venous stasis with insufficiency of the lower extremity -: Lymphedema to the lower extremity -: Hypertension -: Cellulitis -: Appendectomy -: Cholecystectomy -: Bowel repair secondary to bowel perforation -: Hernia mesh repair Psychosocial/ Personal History: The patient is single. He has 2 children. He is currently disabled. - Family History Father -: Heart disease - Social History Alcohol use: No CD- Drugs: No Caffeine use: Yes Review of Systems 10-point ROS is otherwise unremarkable General: Weakness, Malaise Cardiovascular: Edema Musculoskeletal: Leg Pain Integumentary: Rash, Lesions Physical Examination - Physical Exam General: Disheveled, Obese HEENT: Atraumatic, Normocephalic Respiratory: Clear to auscultation bilaterally, Normal air movement Cardiovascular: Regular rate/rhythm, Edema Gastrointestinal: Soft and benign, Non-distended Musculoskeletal: Other Integumentary: Rash(es), Skin breakdown, Skin lesion Neurological: Other (lethargic ) - Studies Laboratory Data (last 24 hrs) 11/13/23 11/13/23 11/13/23 20:09 20:09 20:09 WBC 5.50 Hgb 10.3 L Hct 31.2 L Plt Count 208 PT 14.0 H INR 1.26 Sodium 138 Potassium 4.0 BUN 17 Creatinine 1.02 Glucose 105 Magnesium 1.9 Total Bilirubin 0.4 AST 24 ALT 27 Alkaline Phosphatase 85 Assessment and Plan - Problems (Diagnosis) (1) Cellulitis Current Visit: Yes Status: Acute (2) Weakness Current Visit: Yes Status: Acute (3) Lymphedema Current Visit: No Status: Acute (4) Lymphedema of both lower extremities Current Visit: No Status: Chronic - Plan 48-year-old male presented via EMS with leg swelling skin breakdown and progressive weakness. Cellulitis Lymphedema Weakness Morbid obesity Homelessness Hypertension Plan: Admit to [facility] Case management consultation Wound care consultation He may need surgical evaluation Continue IV vancomycin, Rocephin Await home medication reconciliation DVT: Lovenox CODE STATUS: Full - Advance Directives Does patient have a Living Will: No Does patient have a Durable POA for Healthcare: No
[2023-11-14] MEDS ORDERED: ACETAMINOPHEN 500 MG TAB PO PRN (01:07)
[2023-11-14] MEDS: VANCOMYCIN 2 GM in NA CHLORIDE 0.9% 500 ML IVPB SCH (04:00)
[2023-11-14] MEDS: VANCOMYCIN 1 GM/VIAL ONE (04:26)
[2023-11-14] MEDS: NA CHLORIDE 0.9% 500 ML ONE (04:26)
[2023-11-14 05:56] LABS: Absolute Eosinophils 0.2 K/uL (0-0.5); Absolute Lymphocytes (CBC) 0.9 K/uL (0.7-4.9); Absolute Monocytes 0.6 K/uL (0.1-1.3); Absolute Neutrophil 3.2 K/uL (1.8-8.0); Basophils % 0.6 % (0-1.3); Eosinophils % 3.2 % (0-4.4); Hematocrit 31.9 % (39.6-49.0); Hemoglobin 10.3 g/dL (13.6-17.9); Lymphocytes % 19.1 % (15.3-44.8); MCHC 32.2 g/dL (32.0-36.0); MCV 80.6 fL (80-100); MPV 7.5 fL (7.6-11.3); Monocytes % 12.7 % (3.3-12.3); Neutrophils % 64.4 % (41.7-73.7); Nucleated Red Blood Cells % 0.1 % (0-0); Platelets 166 thou/uL (152-406); RBC Red Blood Cell Count 3.95 M/uL (4.33-5.43); Red Cell Distribution Width 17.7 % (12.1-15.2)
[2023-11-14 06:07] LABS: Albumin 2.8 g/dL (3.4-5.0); Albumin/Globulin Ratio 0.5 (1.1-1.8); Anion Gap 5.6 mEq/L (5.0-15.0); Bilirubin Total 0.6 mg/dL (0.2-1.0); Globulin 5.5 g/dL (2.3-3.5); Potassium 3.6 mEq/L (3.5-5.1); Protein, Total 8.3 g/dL (6.4-8.2)
[2023-11-14] MEDS: ENOXAPARIN 40 MG/0.4 ML SQ SCH (08:21)
[2023-11-14] MEDS: CEFTRIAXONE 1,000 MG in NA CHLORIDE 0.9% 50 ML IVPB SCH (08:21)
[2023-11-14] MEDS ORDERED: VANCOMYCIN 0.75 GM in NA CHLORIDE 0.9% 150 ML IVPB SCH (09:00)
--- NOTE | 2023-11-14 10:26 | P.PN ---
Subjective Date of Service: 11/14/23 Chief Complaint: leg swelling Pt is resting comfortably in bed. He was sleeping when I saw him. He appear unkempt and has cellulitis / sores on both legs with foul odor. He is homeless. No other complaints. Review of Systems General: Unremarkable Eyes: Unremarkable ENT: Unremarkable Respiratory: Unremarkable Cardiovascular: Unremarkable Gastrointestinal: Unremarkable Genitourinary: Unremarkable Musculoskeletal: Unremarkable Integumentary: Lesions Neurological: Unremarkable Lymphatics: Unremarkable Physical Examination - Vital Signs Temperature: 98.2 F Blood Pressure: 148/75 Pulse: 73 Respirations: 14 Pulse Ox (%): 99 - Physical Exam General: Alert, In no apparent distress, Disheveled, Obese HEENT: Atraumatic, Normocephalic Neck: Supple, 2+ carotid pulse no bruit Respiratory: Clear to auscultation bilaterally, Normal air movement Cardiovascular: No edema, Normal pulses, Regular rate/rhythm, Normal S1 S2 Capillary refill: <2 Seconds Gastrointestinal: Normal bowel sounds, Soft and benign, Non-distended Musculoskeletal: No clubbing, Swelling Integumentary: Skin breakdown, Skin lesion, Venous stasis ulcer Neurological: Normal speech, Normal strength at 5/5 x4 extr, Normal tone, Sensation intact Lymphatics: No axilla or inguinal lymphadenopathy - Studies Laboratory Data (last 24 hrs) 11/13/23 11/13/23 11/13/23 20:09 20:09 20:09 WBC 5.50 Hgb 10.3 L Hct 31.2 L Plt Count 208 PT 14.0 H INR 1.26 Sodium 138 Potassium 4.0 BUN 17 Creatinine 1.02 Glucose 105 Magnesium 1.9 Total Bilirubin 0.4 AST 24 ALT 27 Alkaline Phosphatase 85 Assessment And Plan - Plan Cellulitis: Will continue iv vanc and rocephin. f/u blood cx. Consulted Gen surgeon. Lymphedema: Will treat the infection on legs. Continue to keep legs elevated when in bed. Weakness: Will consult PT for deconditioning. Morbid obesity: Pt will benefit from weight loss. Homelessness: dba manager is looking into SNF placement. Hypertension: Continue HCTZ 12.5mg po daily. DVT ppx: lovenox Code: full
[2023-11-14] MEDS: hydroCHLOROthiazide 12.5 MG CAP PO SCH (10:39)
--- NOTE | 2023-11-14 11:43 | EKG ---
Test Date: 2023-11-13 Test Time: 20:38:31 Filter Bed Placer: JEWELL MEASUREMENT RESULTS: Intervals: Rate: 85 WA: 154 QRSD: 112 QT: 368 QTc: 437 [place]: P: 30 WA: 154 QRS: 83 T: 67 INTERPRETIVE STATEMENTS: Normal sinus rhythm Normal ECG Compared to ECG 02/24/2020 19:27:02 No significant changes Electronically Signed On 11-14-23 11:41:24 CDT by Lisandro Berrios
[2023-11-14] MEDS: VANCOMYCIN 1.5 GM in NA CHLORIDE 0.9% 500 ML IVPB SCH (16:16)
[2023-11-15 06:25] VITALS: BMI 49.6
[2023-11-15] MEDS: CYANOCOBALAMIN 1,000 MCG TAB PO SCH (08:19)
--- NOTE | 2023-11-15 10:57 | P.PN ---
Subjective Date of Service: 11/15/23 Chief Complaint: leg swelling Pt is resting comfortably in bed. He was sleeping when I saw him. No fever. Wound care team is seeing him. He appear unkempt and has cellulitis / sores on both legs with foul odor. He is homeless. No other complaints. Review of Systems is unable to be obtained Physical Examination - Vital Signs Temperature: 99.3 F Blood Pressure: 146/94 Pulse: 75 Respirations: 14 Pulse Ox (%): 96 - Physical Exam General: Alert, In no apparent distress, Oriented x3 HEENT: Atraumatic, Normocephalic, PERRLA Neck: Supple, 2+ carotid pulse no bruit Respiratory: Clear to auscultation bilaterally, Normal air movement Cardiovascular: No edema, Normal pulses, Regular rate/rhythm, Normal S1 S2 Capillary refill: <2 Seconds Gastrointestinal: Normal bowel sounds, Soft and benign, Non-distended Musculoskeletal: No clubbing, No contractures, Swelling Integumentary: No rashes, Skin breakdown, Venous stasis ulcer Neurological: Normal gait, Normal speech, Normal strength at 5/5 x4 extr, Normal tone, Sensation intact Lymphatics: No axilla or inguinal lymphadenopathy Assessment And Plan - Plan Cellulitis / venous stasis dermatitis: Will continue iv vanc and rocephin. f/u blood cx. Consulted Gen surgeon. Continue wound care Lymphedema: Will treat the infection on legs. Continue to keep legs elevated when in bed. Weakness: Will consult PT for deconditioning. Morbid obesity: Pt will benefit from weight loss. 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 Hypertension: Continue HCTZ 25mg po daily. DVT ppx: lovenox Code: full
[2023-11-15] MEDS: VANCOMYCIN 1.75 GM in NA CHLORIDE 0.9% 500 ML IVPB SCH (17:52)
[2023-11-15 20:30] VITALS: TEMP 97.8
[2023-11-15 22:50] VITALS: O2SAT 99
[2023-11-16 00:33] VITALS: BP 157/76
[2023-11-16] MEDS ORDERED: hydroCHLOROthiazide 25 MG TAB PO SCH (09:00)
== END 2023-11-16 00:15 | disposition left against medical advice (07) | DRG 603 ==
LOC: ER 17:01 → 2ND 23:15
PROVIDERS: ADMIT Internal Medicine; ATTEND Hospitalist
DX: L03.116 Cellulitis of left lower limb (principal); Z68.42 Body mass index [BMI] 45.0-49.9, adult; Z59.00 Homelessness unspecified; L03.115 Cellulitis of right lower limb; E66.01 Morbid (severe) obesity due to excess calories; I87.8 Other specified disorders of veins; I10 Essential (primary) hypertension; I87.2 Venous insufficiency (chronic) (peripheral); K21.9 Gastro-esophageal reflux disease without esophagitis; Z85.47 Personal history of malignant neoplasm of testis; Z90.49 Acquired absence of other specified parts of digestive tract; Z53.29 Procedure and treatment not carried out because of patient's decision for other reasons; Z28.310 Unvaccinated for COVID-19; Z79.899 Other long term (current) drug therapy
CPT/HCPCS: 36415; 71045; 80048; 80053; 80076; 80202; 81001; 83735; 83880; 84484; 85025; 85610; 93005; 93970; 96361; 96365; 99285; J0696; J1650; J2543; J7030; J7040

== ENCOUNTER 2023-11-26 13:06 | Emergency (ER) | payer OTHER ==
--- NOTE | 2023-11-26 14:22 | RAD REPORT ---
EXAM DESCRIPTION: [place] Single View11/26/2023 2:06 pm CLINICAL HISTORY: Edema/shortness breath COMPARISON: October 2023 FINDINGS: The lungs appear clear of acute infiltrate. The heart is normal size IMPRESSION: No acute abnormalities displayed
[2023-11-26] MEDS ORDERED: CLINDAMYCIN 600MG/D5W 50 ML IV ONE (14:35)
[2023-11-26 14:38] LABS: Absolute Eosinophils 0.1 K/uL (0-0.5); Absolute Lymphocytes (CBC) 0.8 K/uL (0.7-4.9); Absolute Monocytes 0.4 K/uL (0.1-1.3); Basophils % 0.6 % (0-1.3); Hematocrit 32.6 % (39.6-49.0); Hemoglobin 10.8 g/dL (13.6-17.9); Lymphocytes % 14.7 % (15.3-44.8); MCH 26.4 pg (27.0-35.0); MCHC 33.2 g/dL (32.0-36.0); MCV 79.6 fL (80-100); MPV 7.4 fL (7.6-11.3); Monocytes % 7.5 % (3.3-12.3); Neutrophils % 75.2 % (41.7-73.7); Nucleated Red Blood Cells % 0.1 % (0-0); Platelets 225 thou/uL (152-406); Red Cell Distribution Width 17.2 % (12.1-15.2)
[2023-11-26 14:57] LABS: Albumin 2.9 g/dL (3.4-5.0); Albumin/Globulin Ratio 0.5 (1.1-1.8); Anion Gap 8.7 mEq/L (5.0-15.0); Bilirubin Total 0.3 mg/dL (0.2-1.0); Globulin 5.6 g/dL (2.3-3.5); Potassium 3.7 mEq/L (3.5-5.1); Protein, Total 8.5 g/dL (6.4-8.2); Troponin High Sensitivity 7.5 pg/mL (<58.9)
[2023-11-26 14:59] LABS: PT Prothrombin Time 12.4 SECONDS (9.4-12.5); PTT, Activated Partial Thromb 36.1 SECONDS (24.3-36.9); Protime INR 1.11
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
[2023-11-26 16:06] VITALS: TEMP 98
[2023-11-26 16:09] VITALS: BP 134/86; O2SAT 99
--- NOTE | 2023-11-28 16:31 | EKG ---
Test Date: 2023-11-26 Test Time: 14:19:12 Terrazzo Finisher Helper: CARLA MEASUREMENT RESULTS: Intervals: Rate: 80 OH: 158 QRSD: 114 QT: 370 QTc: 426 [place]: P: 90 OH: 158 QRS: 144 T: 127 INTERPRETIVE STATEMENTS: Suspect arm lead reversal, interpretation assumes no reversal Normal sinus rhythm Right axis deviation Abnormal ECG Compared to ECG 11/13/2023 20:38:31 Right-axis deviation now present Electronically Signed On 11-28-23 16:30:14 CDT by Boyd Roberto
== END 2023-11-26 15:59 ==
LOC: ER 13:06
DX: I89.0 Lymphedema, not elsewhere classified (principal); I10 Essential (primary) hypertension
CPT/HCPCS: 36415; 71045; 80053; 83605; 83880; 84484; 85025; 85610; 85730; 87040; 93005; 96365; 99285

== ENCOUNTER 2024-07-16 00:50 | Emergency (ER) | payer OTHER ==
[2024-07-16] MEDS ORDERED: KETOROLAC 30 MG/ML INJ ONE (01:43)
[2024-07-16 02:06] LABS: Absolute Eosinophils 0.1 K/uL (0-0.5); Absolute Lymphocytes (CBC) 0.9 K/uL (0.7-4.9); Absolute Monocytes 0.6 K/uL (0.1-1.3); Absolute Neutrophil 3.7 K/uL (1.8-8.0); Basophils % 0.8 % (0-1.3); Eosinophils % 2.3 % (0-4.4); Hematocrit 32.3 % (39.6-49.0); Hemoglobin 10.6 g/dL (13.6-17.9); Lymphocytes % 17.4 % (15.3-44.8); MCH 25.6 pg (27.0-35.0); MCHC 32.9 g/dL (32.0-36.0); MCV 77.8 fL (80-100); MPV 7.7 fL (7.6-11.3); Monocytes % 11.3 % (3.3-12.3); Neutrophils % 68.2 % (41.7-73.7); Nucleated Red Blood Cells % 0.1 % (0-0); Platelets 227 thou/uL (152-406); RBC Red Blood Cell Count 4.15 M/uL (4.33-5.43); Red Cell Distribution Width 17.3 % (12.1-15.2)
[2024-07-16 02:18] LABS: Albumin 2.8 g/dL (3.4-5.0); Albumin/Globulin Ratio 0.5 (1.1-1.8); Anion Gap 6.9 mEq/L (5.0-15.0); Bilirubin Total 0.4 mg/dL (0.2-1.0); Globulin 5.7 g/dL (2.3-3.5); Potassium 3.9 mEq/L (3.5-5.1); Protein, Total 8.5 g/dL (6.4-8.2)
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
[2024-07-16 03:28] VITALS: TEMP 98.1
[2024-07-16 03:29] VITALS: BP 137/81; O2SAT 96
== END 2024-07-16 03:23 | disposition home or self-care (01) ==
LOC: ER 00:50
DX: I87.2 Venous insufficiency (chronic) (peripheral) (principal)
CPT/HCPCS: 36415; 80053; 85025

== ENCOUNTER 2024-07-18 12:44 | Emergency (ER) | payer OTHER ==
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
[2024-07-18 17:02] VITALS: BP 168/90; TEMP 98; O2SAT 100
== END 2024-07-18 14:01 | disposition home or self-care (01) ==
LOC: ER 12:44
DX: I89.0 Lymphedema, not elsewhere classified (principal)
CPT/HCPCS: 99283